=== PATIENT | female | born 1945 | race Caucasian/White ===

== ENCOUNTER 2020-11-23 09:43 | Inpatient (IN) | payer MEDICARE, SELFPAY ==
[2020-11-23] VITALS (30 sets, daily range): BP systolic 78–136; BP diastolic 37–76; PULSE 59–86; RESP 11–414; TEMP 32.5–36.5; O2SAT 96–99; BMI 17.6
--- NOTE | 2020-11-23 | XR_ITS ---
EXAMINATION: XR CHEST CLINICAL INFORMATION: Containing central line placement COMPARISON: Earlier same date TECHNIQUE: Frontal view of the chest was obtained. FINDINGS: Right internal jugular central venous catheter terminates at the superior cavoatrial junction. No discrete consolidation. Trace bilateral pleural effusions unchanged. No pneumothorax. Heart size and pulmonary vascularity within normal limits. No acute or suspicious osseous abnormalities. XR/XR chest 1V IMPRESSION: Right internal jugular central venous catheter terminates at the superior cavoatrial junction. No pneumothorax. Stable trace bilateral pleural effusions.
--- NOTE | 2020-11-23 10:26 | XR_ITS ---
EXAMINATION: XR CHEST CLINICAL INFORMATION: Hypothermia COMPARISON: None TECHNIQUE: Frontal view of the chest was obtained. FINDINGS: No discrete consolidation. Biapical pleural-parenchymal scarring. Nodular opacity at the medial right lung base. No pleural effusion or pneumothorax. Heart size and pulmonary vascularity within normal limits. No acute or suspicious osseous abnormalities. XR/XR chest 1V IMPRESSION: No evidence of acute pneumonitis or parenchymal consolidation. Nonspecific nodular opacity at the medial right lung base.
--- NOTE | 2020-11-23 10:26 | ECG_ITS ---
Test Reason : WEAKNESS Blood Pressure : / mmHG Vent. Rate : 058 BPM Atrial Rate : 058 BPM P-R Int : 174 ms QRS Dur : 086 ms QT Int : 428 ms P-R-T Axes : 068 072 072 degrees QTc Int : 420 ms Sinus bradycardia Otherwise normal ECG No previous ECGs available Referred By: Kathleen Regan Electronically Signed By:MIRANDA GODINEZ
--- NOTE | 2020-11-23 10:30 | CT_ITS ---
EXAMINATION: CT HEAD WITHOUT CONTRAST CT ABDOMEN AND PELVIS WITHOUT CONTRAST CLINICAL INFORMATION: Altered mental status. Septic. Diffuse abdominal pain. COMPARISON: None. TECHNIQUE: Contiguous axial imaging was performed from the skull base to vertex without intravenous administration of contrast. Noncontrast CT imaging of the abdomen and pelvis was performed without the use of intravenous contrast. Coronal and sagittal reformats of both studies created on an independent workstation are reviewed. DLP: 922 mGy-cm. FINDINGS: CT HEAD There is no evidence of acute intracranial hemorrhage or territorial infarction. No abnormal mass effect or midline shift is seen. Santiago to white matter differentiation is well preserved. No extra-axial fluid collections are identified. Patchy subcortical and periventricular white matter low-attenuation changes are present, nonspecific. The ventricles are normal in size. The osseous structures and soft tissues are normal. The mastoid air cells and visualized portions of the paranasal sinuses are well-aerated. CT ABDOMEN/PELVIS IMAGED THORAX: Small bilateral pleural effusions with accompanying atelectasis. Anemia is evident. HEPATOBILIARY: Liver normal in size, contour and morphology. No suspicious lesions. No intra or extrahepatic biliary dilation. Cholecystectomy. PANCREAS: Grossly unremarkable, however assessment is limited by anasarca which obscures the retroperitoneal fat planes and limits assessment for mild inflammation. SPLEEN: Unremarkable. ADRENAL GLANDS: Unremarkable. KIDNEYS, URETERS AND BLADDER: Kidneys normal in size, axis and morphology. No hydronephrosis or urinary calculi. Ureters normal in course and caliber. Bladder grossly unremarkable.. GASTROINTESTINAL TRACT: Limited assessment in the absence of intravenous contrast and diffuse anasarca. Moderate constipation. No evidence of obstruction. Appendix not clearly identified. PELVIC VISCERA: Uterus and adnexa grossly unremarkable. LYMPH NODES: No bulky adenopathy. PERITONEUM/BODY WALL: Anasarca. Small volume ascites. VASCULAR STRUCTURES: Aorta mildly atherosclerotic. No aortic aneurysm. OSSEOUS STRUCTURES: No acute or suspicious osseous abnormalities. CT/CT abdomen pelvis wo con IMPRESSION: CT HEAD: * No acute intracranial pathology. * White matter small vessel ischemic changes. CT ABDOMEN/PELVIS: * Markedly limited exam due to anasarca and lack of intravenous contrast. * No evidence of bowel obstruction. * Moderate to severe constipation. * Small volume ascites. * No source of infection within the abdomen or pelvis.
[2020-11-23 10:54] LABS: Eosinophils Percent Auto 0.5 % (0-4); Imm Gran Abs Auto 0.01 X10*3/uL (0.00-0.03); Imm Gran Pct Auto 0.5 % (0.0-0.4); MANUAL DIFF FLAG SCAN; PLT CLUMP 1; SCAN SMEAR FLAG 1
[2020-11-23 10:56] LABS: Lymphocytes Absolute Auto 1.3 X10*3/uL (1.2-4.9); Lymphocytes Percent Auto 64.9 % (20-40); Mean Corpuscular Hemoglobin 33.5 pg (27.0-33.0); Mean Corpuscular Volume 98.5 fL (80-98); Monocytes Absolute Auto 0.1 X10*3/uL (0.1-1.2); Monocytes Percent Auto 6.4 % (2-11); Neutrophils Absolute Auto 0.6 X10*3/uL (2.0-8.3); Neutrophils Percent Auto 27.7 % (45-73); Red Blood Count 2.03 X10*6/uL (4.20-5.50)
[2020-11-23 11:16] LABS: Hemoglobin 6.8 g/dl (12.0-16.0)
[2020-11-23 11:17] LABS: Lactic Acid 0.5 mmol/L (0.5-2.0); Platelet Count 11 X10*3/uL (160-400)
[2020-11-23 11:18] LABS: SLIDE REVIEW VERIFIED
[2020-11-23] MEDS: 0.9 % Sodium Chloride 500 ML 999 ML IVCONT (11:22)
[2020-11-23 11:27] LABS: Troponin-I High Sensitivity 7.9 ng/L (<3.5-17.0)
[2020-11-23 11:33] LABS: Alanine Aminotransferase 557 U/L (0-31); Alkaline Phosphatase 283 U/L (39-117); Aspartate Amino Transferase 524 U/L (5-31); Bilirubin Direct 0.3 mg/dL (0.0-0.5); Bilirubin Total 0.6 mg/dL (0.0-1.0); Blood Urea Nitrogen 35 mg/dL (9-16); Creatinine Clr Calc Pharmacy 34.8; Estimated Glomerular Filt Rate > 60; Glucose Random 104 mg/dL (60-115); Total Protein 4.7 g/dL (6.5-8.0)
[2020-11-23 11:36] LABS: Glucose, Whole Blood 71 mg/dL (60-115)
[2020-11-23 11:41] LABS: Glucose Urine UA NEG (NEG); Leukocyte Esterase Urine NEG (NEG); Nitrite Urine NEG (NEG); PH 5.5 (5.0-8.0); Specific Gravity - Urine 1.025 (1.005-1.025); Urine Blood TRACE (NEG); Urine Ketones 5 MG/DL (NEG); Urine Protein TRACE MG/DL (NEG-TRACE)
[2020-11-23 11:43] LABS: Anion Gap 11 (12-20); Carbon Dioxide 25 mmol/L (22-29); Chloride 96 mmol/L (96-108); Potassium 4.2 mmol/l (3.3-5.1); Sodium 128 mmol/L (135-145)
[2020-11-23 11:53] LABS: Lipase 2888 U/L (8-78)
[2020-11-23 12:01] LABS: Appearance Urine HAZY; Color Urine YELLOW
[2020-11-23 12:03] LABS: Epith (RTE) Cast 0-2 /LPF; Mucus Urine 2+ /LPF; RBC Urine 0 /HPF (0); WBC Urine 0-2 /HPF (0-4)
--- NOTE | 2020-11-23 12:28 | ED.GENADULT ---
HPI - General Adult General Chief complaint: General Medical Stated complaint: hypoglycemia Time Seen by Provider: 11/23/20 10:02 Source: patient, family and EMS Mode of arrival: EMS Limitations: altered mental status History of Present Illness HPI narrative: Patient is brought to the emergency room for altered mental status. According to the patient's family, this morning patient was unresponsive. It seemed that she was sleeping, they initially left her rest for 5 more minutes, then the son decided to wake her up but could not do so, EMS was called. When EMS arrived, patient's blood sugar was 22, she was given D50. When patient woke up after the D50, patient had significant slurry speech. According to the patient's son, for the last 2-3 weeks, she has had multiple episodes of slurry speech, they believe it is related to her low blood sugar. Patient is known to have anorexia nervosa, the family has been trying to get the patient admitted to an inpatient psychiatric facility where they can treat eating disorders. On arrival to the emergency room, patient states that she has abdominal pain. The son also states that the patient gets a monthly treatment with IV medications for CLL. Of note, the patient was recently discharged from [facility] and sent to a short-term rehab. Related Data Allergies Allergy/AdvReac Type Severity Reaction Status Date / Time No Known Allergies Allergy Verified 11/23/20 10:26 Review of Systems Review of Systems: Constitutional : Patient denies fever chills ENT/Mouth : No Hearing loss, No Ear Pain, No Nasal Congestion, No Sinus Pain, No Hoarseness, No sore throat, No Rhinorrhea, No Swallowing Difficulty Eyes: No Eye Pain, No Swelling, No Redness, No Foreign Body, No Discharge, No Vision Changes Cardiovascular : No Chest Pain, No SOB, No Dyspnea on Exertion, no orthopnea Respiratory : No Cough, No Sputum, No Wheezing, No Smoke Exposure, No Dyspnea Gastrointestinal : No Nausea, No Vomiting, complaining of constipation and diffuse abdominal pain, last bowel movement 4 days ago Genitourinary : patient denies dysuria, no flank pain Musculoskeletal : Patient complaining of left groin pain that gets worse with movement Skin : No Skin Lesions, No rash Neuro : Patient complaining of weakness, no numbness or tingling Psych : No SI/HI/AH/VH, No Social Issues, Heme/Lymph: Complaining of chronic bruising, known to have CLL and low platelets Endocrine : No Polyuria, No Polydipsia, No Temperature Intolerance [facility] Past Medical History Medical History (Updated 11/23/20 @ 16:37 by Kathleen Regan MD) Anorexia CLL (chronic lymphocytic leukemia) Failure to thrive Hypothyroid Social History Social History Advance Directives: No Advance Directives Information Provided: Yes Physical Exam Vital Signs: Vital Signs: Last Vital Signs Temp 94.5 F L 11/23/20 16:05 Pulse 76 11/23/20 16:05 Resp 16 11/23/20 16:05 BP 127/55 L 11/23/20 16:05 Pulse Ox 96 11/23/20 16:05 Body Mass Index 17.6 Appearance: Alert. Oriented X3. No acute distress. Very anxious Eyes: Pupils equal, round and reactive to light. ENT: Pharynx normal. Neck: Normal inspection. Neck supple. No lymph nodes noted. No crepitus CVS: Normal heart rate and rhythm. Pulses normal. Normal S1 and S2 Respiratory: No respiratory distress. Breath sounds normal. No Wheezing. No rales Abdomen: Soft , complaining of diffuse abdominal pain, complaining of left inguinal pain Skin: Skin seems cold to touch, pale Extremities: No lower extremity edema. Chronic venous stasis bilaterally in lower extremities Neuro: Oriented X 3. No motor deficit. No sensory deficit. Moving all extermities. Initially had slurring of speech NIH Stroke Scale Level of Consciousness: Alert Level of Consciousness Questions: Answers both questions correctly Level of Consciousness Commands: Performs both tasks correctly Best Gaze: Normal Visual: No visual loss Facial Palsy: Normal Motor Arm (Right): No drift Motor Arm (Left): No drift Motor Leg (Right): No drift Motor Leg (Left): No drift Limb Ataxia: Absent Sensory: Normal Best Language: No aphasia Dysarthia: Mild to moderate dysarthria Extinction and Inattention: No abnormality Score: 1 Course Course Course Narrative: Patient is known to have CLL, patient's white blood cell count baseline is unknown, all cell lines and decreased. Dr. Mcarthur and I discussed the patient, at this time, 14:00, a possible source of infection has not been identified yet. However, at this time sepsis is suspected. Hematology-Oncology consult pending I also spoke to Dr. Saleh from heme/oncology, her recommendations are to go ahead and give the patient a transfusion of platelets, 1 unit today and 1 unit tomorrow. At this time, we requested to get all of her records from her current hematology/oncology office Procedures Central Line Placement Right IJ: Time Out Performed: Yes Patient Placed on Monitor/Pulse Ox: Yes Prep: mask, gown and gloves Central Line Prep: Chlorhexidine scrub Local Anesthetic: lidocaine 1% Amount of anesthesia used (mL): 5 Ultrasound Used for Placement: Yes Central Line Lumen Inserted: triple Post Procedure: sutured in place, good blood return, all ports aspirated, flushed, capped and sterile dressing applied Post Procedure X-Ray: tip of catheter in good position and no pneumothorax seen Patient Tolerated Procedure: well and no complications Complications: none Medical Decision Making Lab Data Result diagrams: 11/23/20 10:36 11/23/20 10:37 Labs: Lab Results 11/23/20 11/23/20 11/23/20 Range/Units 10:36 10:36 10:36 WBC 2.0 L (4.8-10.8) X10*3/uL RBC 2.03 L (4.20-5.50) X10*6/uL Hgb 6.8 L* (12.0-16.0) g/dl Hct 20.0 L* (37-47) % MCV 98.5 H (80-98) fL MCH 33.5 H (27.0-33.0) pg MCHC 34.0 (31.0-35.0) g/dl RDW 16.0 (11.0-16.0) % Plt Count 11 L* (160-400) X10*3/uL MPV 9.0 L (9.4-12.3) fL Immature Gran % (Auto) 0.5 H (0.0-0.4) % Neut % (Auto) 27.7 L (45-73) % Lymph % (Auto) 64.9 H (20-40) % [place] % (Auto) 6.4 (2-11) % Eos % (Auto) 0.5 (0-4) % Baso % (Auto) 0.0 (0-2) % Lymph # (Auto) 1.3 (1.2-4.9) X10*3/uL [place] # (Auto) 0.1 (0.1-1.2) X10*3/uL Eos # (Auto) 0.0 (0.0-0.4) X10*3/uL Baso # (Auto) 0.0 (0.0-0.2) X10*3/uL Abs Immat Gran (auto) 0.01 (0.00-0.03) X10*3/uL Absolute Neuts (auto) 0.6 L (2.0-8.3) X10*3/uL Absolute Nucleated RBC 0.000 (0.0-0.012) X10*3/uL Nucleated RBC % (auto) 0.0 (0.0-0.2) /100WBC Smear Tech's Comments VERIFIED VBG pH (7.32-7.43) VBG pCO2 mmhg VBG pO2 mmhg VBG HCO3 mmol/L VBG O2 Saturation % VBG Base Excess mmol/L Sodium (135-145) mmol/L Potassium (3.3-5.1) mmol/l Chloride (96-108) mmol/L Carbon Dioxide (22-29) mmol/L Anion Gap (12-20) BUN (9-16) mg/dL Creatinine (0.5-1.4) mg/dL Estim Creat Clear Calc Estimated GFR POC Glucose (60-115) mg/dL Random Glucose (60-115) mg/dL Lactic Acid 0.5 (0.5-2.0) mmol/L Calcium (8.4-10.2) mg/dL Phosphorus (2.7-4.5) mg/dL Magnesium (1.6-2.6) mg/dL Total Bilirubin (0.0-1.0) mg/dL Direct Bilirubin (0.0-0.5) mg/dL AST (5-31) U/L ALT (0-31) U/L Alkaline Phosphatase (39-117) U/L Troponin I High Sens 7.9 (<3.5-17.0) ng/L Total Protein (6.5-8.0) g/dL Albumin (3.5-5.0) g/dL Triglycerides mg/dL Lipase (8-78) U/L TSH (0.32-4.0) mIU/mL Urine Color Urine Appearance Urine pH (5.0-8.0) Ur Specific [place] (1.005-1.025) Urine Protein (NEG-TRACE) MG/DL Urine Glucose (UA) (NEG) MG/DL Urine Ketones (NEG) MG/DL Urine Blood (NEG) Urine Nitrite (NEG) Ur Leukocyte Esterase (NEG) Urine RBC (0) /HPF Urine WBC (0-4) /HPF Ur Squamous Epith Cells /LPF Urine Bacteria /LPF Epithelial Casts /LPF Hyaline Casts /LPF Granular Casts /LPF Urine Mucus /LPF Coronavirus (PCR) (Negative) Influenza Type A (PCR) (Negative) Influenza Type B (PCR) (Negative) RSV RNA Qual (PCR) (Negative) Blood Type Antibody Screen Crossmatch 11/23/20 11/23/20 11/23/20 Range/Units 10:36 10:37 11:24 WBC (4.8-10.8) X10*3/uL RBC (4.20-5.50) X10*6/uL Hgb (12.0-16.0) g/dl Hct (37-47) % MCV (80-98) fL MCH (27.0-33.0) pg MCHC (31.0-35.0) g/dl RDW (11.0-16.0) % Plt Count (160-400) X10*3/uL MPV (9.4-12.3) fL Immature Gran % (Auto) (0.0-0.4) % Neut % (Auto) (45-73) % Lymph % (Auto) (20-40) % [place] % (Auto) (2-11) % Eos % (Auto) (0-4) % Baso % (Auto) (0-2) % Lymph # (Auto) (1.2-4.9) X10*3/uL [place] # (Auto) (0.1-1.2) X10*3/uL Eos # (Auto) (0.0-0.4) X10*3/uL Baso # (Auto) (0.0-0.2) X10*3/uL Abs Immat Gran (auto) (0.00-0.03) X10*3/uL Absolute Neuts (auto) (2.0-8.3) X10*3/uL Absolute Nucleated RBC (0.0-0.012) X10*3/uL Nucleated RBC % (auto) (0.0-0.2) /100WBC Smear Tech's Comments VBG pH (7.32-7.43) VBG pCO2 mmhg VBG pO2 mmhg VBG HCO3 mmol/L VBG O2 Saturation % VBG Base Excess mmol/L Sodium 128 L (135-145) mmol/L Potassium 4.2 (3.3-5.1) mmol/l Chloride 96 (96-108) mmol/L Carbon Dioxide 25 (22-29) mmol/L Anion Gap 11 L (12-20) BUN 35 H (9-16) mg/dL Creatinine 0.90 (0.5-1.4) mg/dL Estim Creat Clear Calc 34.8 Estimated GFR > 60 POC Glucose 71 (60-115) mg/dL Random Glucose 104 (60-115) mg/dL Lactic Acid (0.5-2.0) mmol/L Calcium 8.0 L (8.4-10.2) mg/dL Phosphorus 3.7 (2.7-4.5) mg/dL Magnesium 2.0 (1.6-2.6) mg/dL Total Bilirubin 0.6 (0.0-1.0) mg/dL Direct Bilirubin 0.3 (0.0-0.5) mg/dL AST 524 H (5-31) U/L ALT 557 H (0-31) U/L Alkaline Phosphatase 283 H (39-117) U/L Troponin I High Sens (<3.5-17.0) ng/L Total Protein 4.7 L (6.5-8.0) g/dL Albumin 3.0 L (3.5-5.0) g/dL Triglycerides 25 mg/dL Lipase 2888 H (8-78) U/L TSH 7.39 H (0.32-4.0) mIU/mL Urine Color Urine Appearance Urine pH (5.0-8.0) Ur Specific [place] (1.005-1.025) Urine Protein (NEG-TRACE) MG/DL Urine Glucose (UA) (NEG) MG/DL Urine Ketones (NEG) MG/DL Urine Blood (NEG) Urine Nitrite (NEG) Ur Leukocyte Esterase (NEG) Urine RBC (0) /HPF Urine WBC (0-4) /HPF Ur Squamous Epith Cells /LPF Urine Bacteria /LPF Epithelial Casts /LPF Hyaline Casts /LPF Granular Casts /LPF Urine Mucus /LPF Coronavirus (PCR) (Negative) Influenza Type A (PCR) (Negative) Influenza Type B (PCR) (Negative) RSV RNA Qual (PCR) (Negative) Blood Type Antibody Screen Crossmatch 11/23/20 11/23/20 11/23/20 Range/Units 11:29 12:52 14:09 WBC (4.8-10.8) X10*3/uL RBC (4.20-5.50) X10*6/uL Hgb (12.0-16.0) g/dl Hct (37-47) % MCV (80-98) fL MCH (27.0-33.0) pg MCHC (31.0-35.0) g/dl RDW (11.0-16.0) % Plt Count (160-400) X10*3/uL MPV (9.4-12.3) fL Immature Gran % (Auto) (0.0-0.4) % Neut % (Auto) (45-73) % Lymph % (Auto) (20-40) % [place] % (Auto) (2-11) % Eos % (Auto) (0-4) % Baso % (Auto) (0-2) % Lymph # (Auto) (1.2-4.9) X10*3/uL [place] # (Auto) (0.1-1.2) X10*3/uL Eos # (Auto) (0.0-0.4) X10*3/uL Baso # (Auto) (0.0-0.2) X10*3/uL Abs Immat Gran (auto) (0.00-0.03) X10*3/uL Absolute Neuts (auto) (2.0-8.3) X10*3/uL Absolute Nucleated RBC (0.0-0.012) X10*3/uL Nucleated RBC % (auto) (0.0-0.2) /100WBC Smear Tech's Comments VBG pH (7.32-7.43) VBG pCO2 mmhg VBG pO2 mmhg VBG HCO3 mmol/L VBG O2 Saturation % VBG Base Excess mmol/L Sodium (135-145) mmol/L Potassium (3.3-5.1) mmol/l Chloride (96-108) mmol/L Carbon Dioxide (22-29) mmol/L Anion Gap (12-20) BUN (9-16) mg/dL Creatinine (0.5-1.4) mg/dL Estim Creat Clear Calc Estimated GFR POC Glucose (60-115) mg/dL Random Glucose (60-115) mg/dL Lactic Acid (0.5-2.0) mmol/L Calcium (8.4-10.2) mg/dL Phosphorus (2.7-4.5) mg/dL Magnesium (1.6-2.6) mg/dL Total Bilirubin (0.0-1.0) mg/dL Direct Bilirubin (0.0-0.5) mg/dL AST (5-31) U/L ALT (0-31) U/L Alkaline Phosphatase (39-117) U/L Troponin I High Sens (<3.5-17.0) ng/L Total Protein (6.5-8.0) g/dL Albumin (3.5-5.0) g/dL Triglycerides mg/dL Lipase (8-78) U/L TSH (0.32-4.0) mIU/mL Urine Color YELLOW Urine Appearance HAZY Urine pH 5.5 (5.0-8.0) Ur Specific [place] 1.025 (1.005-1.025) Urine Protein TRACE (NEG-TRACE) MG/DL Urine Glucose (UA) NEG (NEG) MG/DL Urine Ketones 5 (NEG) MG/DL Urine Blood TRACE (NEG) Urine Nitrite NEG (NEG) Ur Leukocyte Esterase NEG (NEG) Urine RBC 0 (0) /HPF Urine WBC 0-2 (0-4) /HPF Ur Squamous Epith Cells NONE /LPF Urine Bacteria NONE /LPF Epithelial Casts 0-2 /LPF Hyaline Casts 5-9 /LPF Granular Casts 1-4 /LPF Urine Mucus 2+ /LPF Coronavirus (PCR) NEGATIVE (Negative) Influenza Type A (PCR) NEGATIVE (Negative) Influenza Type B (PCR) NEGATIVE (Negative) RSV RNA Qual (PCR) NEGATIVE (Negative) Blood Type A Negative Antibody Screen NEGATIVE Crossmatch See Detail 11/23/20 Range/Units 14:09 WBC (4.8-10.8) X10*3/uL RBC (4.20-5.50) X10*6/uL Hgb (12.0-16.0) g/dl Hct (37-47) % MCV (80-98) fL MCH (27.0-33.0) pg MCHC (31.0-35.0) g/dl RDW (11.0-16.0) % Plt Count (160-400) X10*3/uL MPV (9.4-12.3) fL Immature Gran % (Auto) (0.0-0.4) % Neut % (Auto) (45-73) % Lymph % (Auto) (20-40) % [place] % (Auto) (2-11) % Eos % (Auto) (0-4) % Baso % (Auto) (0-2) % Lymph # (Auto) (1.2-4.9) X10*3/uL [place] # (Auto) (0.1-1.2) X10*3/uL Eos # (Auto) (0.0-0.4) X10*3/uL Baso # (Auto) (0.0-0.2) X10*3/uL Abs Immat Gran (auto) (0.00-0.03) X10*3/uL Absolute Neuts (auto) (2.0-8.3) X10*3/uL Absolute Nucleated RBC (0.0-0.012) X10*3/uL Nucleated RBC % (auto) (0.0-0.2) /100WBC Smear Tech's Comments VBG pH 7.35 (7.32-7.43) VBG pCO2 47 mmhg VBG pO2 57 mmhg VBG HCO3 25 mmol/L VBG O2 Saturation 90.2 % VBG Base Excess -0.6 mmol/L Sodium (135-145) mmol/L Potassium (3.3-5.1) mmol/l Chloride (96-108) mmol/L Carbon Dioxide (22-29) mmol/L Anion Gap (12-20) BUN (9-16) mg/dL Creatinine (0.5-1.4) mg/dL Estim Creat Clear Calc Estimated GFR POC Glucose (60-115) mg/dL Random Glucose (60-115) mg/dL Lactic Acid (0.5-2.0) mmol/L Calcium (8.4-10.2) mg/dL Phosphorus (2.7-4.5) mg/dL Magnesium (1.6-2.6) mg/dL Total Bilirubin (0.0-1.0) mg/dL Direct Bilirubin (0.0-0.5) mg/dL AST (5-31) U/L ALT (0-31) U/L Alkaline Phosphatase (39-117) U/L Troponin I High Sens (<3.5-17.0) ng/L Total Protein (6.5-8.0) g/dL Albumin (3.5-5.0) g/dL Triglycerides mg/dL Lipase (8-78) U/L TSH (0.32-4.0) mIU/mL Urine Color Urine Appearance Urine pH (5.0-8.0) Ur Specific [place] (1.005-1.025) Urine Protein (NEG-TRACE) MG/DL Urine Glucose (UA) (NEG) MG/DL Urine Ketones (NEG) MG/DL Urine Blood (NEG) Urine Nitrite (NEG) Ur Leukocyte Esterase (NEG) Urine RBC (0) /HPF Urine WBC (0-4) /HPF Ur Squamous Epith Cells /LPF Urine Bacteria /LPF Epithelial Casts /LPF Hyaline Casts /LPF Granular Casts /LPF Urine Mucus /LPF Coronavirus (PCR) (Negative) Influenza Type A (PCR) (Negative) Influenza Type B (PCR) (Negative) RSV RNA Qual (PCR) (Negative) Blood Type Antibody Screen Crossmatch ECG Data Attestation: I personally reviewed and interpreted this ECG as follows: (Sinus bradycardia, heart rate 58, QTC 420, Nose segment depressions or elevations) Critical Care Time Critical Care Time Total Critical Care Time: 120 Discharge Plan Discharge Clinical Impression: Weakness, Acute hyponatremia, Adult failure to thrive, Chronic lymphocytic leukemia Anemia Qualifiers: Anemia type: unspecified type Qualified Code(s): D64.9 - Anemia, unspecified Acute pancreatitis Qualifiers: Pancreatitis type: unspecified pancreatitis type Acute pancreatitis complication: unspecified Qualified Code(s): K85.90 - Acute pancreatitis without necrosis or infection, unspecified Patient Disposition: Admitted As Inpatient
[2020-11-23] MEDS: Dextrose 5 % and 0.9 % NaCl 1,000 ML 125 ML IVCONT (12:29)
--- NOTE | 2020-11-23 12:30 | PC.NURSE ---
d5ns started at 125ml/h ALERT, RECTAL TEMP 92.5 AND SLOWLY CLIMBING, SB ON MONITOR
--- NOTE | 2020-11-23 12:33 | US_ITS ---
EXAMINATION: US ABDOMEN LIMITED CLINICAL INFORMATION: Elevated LFTs. COMPARISON: CT scan of same day TECHNIQUE: Real-time imaging of the right upper quadrant abdominal viscera. Limited imaging FINDINGS: PANCREAS: Somewhat prominent without focal abnormality. Correlate with operative assessment. No pancreatic duct dilatation grossly. LIVER: Heterogeneous The liver is normal in size. Small amount of perihepatic free fluid. No focal hepatic lesion. There is no intrahepatic biliary duct dilatation seen. GALLBLADDER: Absent consistent surgical history. COMMON BILE DUCT: Normal in caliber measuring 0.6 cm in diameter. RIGHT KIDNEY: Normal. No hydronephrosis. No renal calculi or focal parenchymal lesions. The kidney measures 9.6 cm in maximum dimension. FREE FLUID: Small amount of free fluid tracks into Morison's pouch as well. US/US abdomen limited IMPRESSION: Limited imaging. No gross abnormalities above. Nonspecific intrinsic liver disease suspected. No biliary dilatation.
[2020-11-23] MEDS: 0.9 % Sodium Chloride 1,000 ML 999 ML IVCONT (12:58)
[2020-11-23] MEDS: ondansetron HCL 4 MG/2 ML VIAL IVPUSH ×2 (13:02→13:27)
[2020-11-23] MEDS: Prochlorperazine Edisylate 10 MG/2 ML VIAL IVPUSH (13:10)
--- NOTE | 2020-11-23 13:14 | PC.NURSE ---
Dr. chaves at bedside to place r jugular central line. Pt agreeable
--- NOTE | 2020-11-23 14:01 | PC.NURSE ---
building mover at bedside, cental line placed by , xray done, levophed infusing and increased to .15mcg/kg/min
[2020-11-23 14:18] LABS: Base Excess VBG -0.6 mmol/L; HCO3 VBG 25 mmol/L; Oxygen Saturation VBG 90.2 %; PCO2 VBG 47 mmhg; PO2 VBG 57 mmhg; pH VBG 7.35 (7.32-7.43)
[2020-11-23] MEDS: cefEPime HCl 2 GM in 0.9 % Sodium Chloride 50 ML IV (14:24)
[2020-11-23 15:20] LABS: Phosphorus 3.7 mg/dL (2.7-4.5); Triglycerides 25 mg/dL
--- NOTE | 2020-11-23 15:26 | P.HPCC_ITS ---
History of Present Illness Date of Service: 11/23/20 Chief Complaint: Altered mental status and weakness 75-year-old female somewhat cachectic appearing with lethargy but arousable and appropriate presents with profound hypothermia and hypotension receive full fluid resuscitation despite lactic acid that was normal being treated as a septic individual because of [place] [address] h emoglobin 6.8 and reduced absolute neutrophil count to 600 with background history of CLL for 10 years but on no chemotherapy and has had a prolonged background of anorexia weight loss constipation and a recent bout with cellulitis currently has markedly elevated lipase of 2800 and transaminases abraham vated in the 500s whereby 1 month ago those numbers were normal and she is status post appendectomy and cholecystectomy Bedside echo shows normal LV and RV function with no primary valve or pericardia l disease just mild relative biatrial enlargement in sinus rhythm with no acute ST-T changes and normal QRS and QT intervals Review of Systems Review of Systems: Yes Unobtainable due to mental status [facility] Past Medical History Medical History (Updated 11/23/20 @ 15:50 by Bossman Mcarthur MD) Anorexia CLL (chronic lymphocytic leukemia) Failure to thrive Hypothyroid Social History Social History Advance Directives: No Advance Directives Information Provided: Yes Meds Allergies Allergy/AdvReac Type Severity Reaction Status Date / Time No Known Allergies Allergy Verified 11/23/20 10:26 Physical Exam Vital Signs: Vital Signs: Last Vital Signs Temp 96 F L 11/23/20 14:59 Pulse 78 11/23/20 15:23 Resp 16 11/23/20 15:23 BP 111/46 L 11/23/20 15:23 Pulse Ox 96 11/23/20 15:23 Body Mass Index 17.6 Lethargic but awake and arousable and oriented Neurologic is nonfocal Skin with stasis dermatitis but no cellulitis Abdomen nondistended good bowel sounds nontender no organomegaly Chest and between x-ray and exam with diminished breath sounds indicating COPD but no infiltrate Good bilateral carotid upstrokes no bruits no neck vein distension but IVC is distended with lack of inspiratory response after 2.5 L of fluid resuscitation Results Labs CBC and Chem 7: 11/23/20 10:36 11/23/20 10:37 Labs: Laboratory Results - last 24 hr 11/23/20 11/23/20 11/23/20 10:36 10:36 10:36 MCV 98.5 H MCH 33.5 H MCHC 34.0 RDW 16.0 Plt Count 11 L* MPV 9.0 L Immature Gran % (Auto) 0.5 H Neut % (Auto) 27.7 L Lymph % (Auto) 64.9 H [place] % (Auto) 6.4 Eos % (Auto) 0.5 Baso % (Auto) 0.0 Lymph # (Auto) 1.3 [place] # (Auto) 0.1 Eos # (Auto) 0.0 Baso # (Auto) 0.0 Abs Immat Gran (auto) 0.01 Absolute Neuts (auto) 0.6 L Absolute Nucleated RBC 0.000 Nucleated RBC % (auto) 0.0 Smear Tech's Comments VERIFIED VBG pH VBG pCO2 VBG pO2 VBG HCO3 VBG O2 Saturation VBG Base Excess Anion Gap Estim Creat Clear Calc Estimated GFR POC Glucose Random Glucose Lactic Acid 0.5 Calcium Phosphorus Magnesium Total Bilirubin Direct Bilirubin AST ALT Alkaline Phosphatase Troponin I High Sens 7.9 Total Protein Albumin Triglycerides Lipase Urine Color Urine Appearance Urine pH Ur Specific [place] Urine Protein Urine Glucose (UA) Urine Ketones Urine Blood Urine Nitrite Ur Leukocyte Esterase Urine RBC Urine WBC Ur Squamous Epith Cells Urine Bacteria Epithelial Casts Hyaline Casts Granular Casts Urine Mucus Blood Type Antibody Screen Crossmatch 11/23/20 11/23/20 11/23/20 10:36 10:37 11:24 MCV MCH MCHC RDW Plt Count MPV Immature Gran % (Auto) Neut % (Auto) Lymph % (Auto) [place] % (Auto) Eos % (Auto) Baso % (Auto) Lymph # (Auto) [place] # (Auto) Eos # (Auto) Baso # (Auto) Abs Immat Gran (auto) Absolute Neuts (auto) Absolute Nucleated RBC Nucleated RBC % (auto) Smear Tech's Comments VBG pH VBG pCO2 VBG pO2 VBG HCO3 VBG O2 Saturation VBG Base Excess Anion Gap 11 L Estim Creat Clear Calc 34.8 Estimated GFR > 60 POC Glucose 71 Random Glucose 104 Lactic Acid Calcium 8.0 L Phosphorus 3.7 Magnesium 2.0 Total Bilirubin 0.6 Direct Bilirubin 0.3 AST 524 H ALT 557 H Alkaline Phosphatase 283 H Troponin I High Sens Total Protein 4.7 L Albumin 3.0 L Triglycerides 25 Lipase 2888 H Urine Color Urine Appearance Urine pH Ur Specific [place] Urine Protein Urine Glucose (UA) Urine Ketones Urine Blood Urine Nitrite Ur Leukocyte Esterase Urine RBC Urine WBC Ur Squamous Epith Cells Urine Bacteria Epithelial Casts Hyaline Casts Granular Casts Urine Mucus Blood Type Antibody Screen Crossmatch 11/23/20 11/23/20 11/23/20 11:29 12:52 14:09 MCV MCH MCHC RDW Plt Count MPV Immature Gran % (Auto) Neut % (Auto) Lymph % (Auto) [place] % (Auto) Eos % (Auto) Baso % (Auto) Lymph # (Auto) [place] # (Auto) Eos # (Auto) Baso # (Auto) Abs Immat Gran (auto) Absolute Neuts (auto) Absolute Nucleated RBC Nucleated RBC % (auto) Smear Tech's Comments VBG pH 7.35 VBG pCO2 47 VBG pO2 57 VBG HCO3 25 VBG O2 Saturation 90.2 VBG Base Excess -0.6 Anion Gap Estim Creat Clear Calc Estimated GFR POC Glucose Random Glucose Lactic Acid Calcium Phosphorus Magnesium Total Bilirubin Direct Bilirubin AST ALT Alkaline Phosphatase Troponin I High Sens Total Protein Albumin Triglycerides Lipase Urine Color YELLOW Urine Appearance HAZY Urine pH 5.5 Ur Specific [place] 1.025 Urine Protein TRACE Urine Glucose (UA) NEG Urine Ketones 5 Urine Blood TRACE Urine Nitrite NEG Ur Leukocyte Esterase NEG Urine RBC 0 Urine WBC 0-2 Ur Squamous Epith Cells NONE Urine Bacteria NONE Epithelial Casts 0-2 Hyaline Casts 5-9 Granular Casts 1-4 Urine Mucus 2+ Blood Type A Negative Antibody Screen NEGATIVE Crossmatch See Detail Imaging Radiologist's Impressions: Impressions Chest X-Ray 11/23/20 00:00 IMPRESSION: Right internal jugular central venous catheter terminates at the superior cavoatrial junction. No pneumothorax. Stable trace bilateral pleural effusions. Chest X-Ray 11/23/20 10:26 IMPRESSION: No evidence of acute pneumonitis or parenchymal consolidation. Nonspecific nodular opacity at the medial right lung base. Head CT 11/23/20 10:27 IMPRESSION: CT HEAD: * No acute intracranial pathology. * White matter small vessel ischemic changes. CT ABDOMEN/PELVIS: * Markedly limited exam due to anasarca and lack of intravenous contrast. * No evidence of bowel obstruction. * Moderate to severe constipation. * Small volume ascites. * No source of infection within the abdomen or pelvis. Abdomen/Pelvis CT 11/23/20 10:30 IMPRESSION: CT HEAD: * No acute intracranial pathology. * White matter small vessel ischemic changes. CT ABDOMEN/PELVIS: * Markedly limited exam due to anasarca and lack of intravenous contrast. * No evidence of bowel obstruction. * Moderate to severe constipation. * Small volume ascites. * No source of infection within the abdomen or pelvis. Abdomen Ultrasound 11/23/20 12:33 IMPRESSION: Limited imaging. No gross abnormalities above. Nonspecific intrinsic liver disease suspected. No biliary dilatation. Assessment and Plan (1) Thrombocytopenia due to hypersplenism: Status: Acute (2) Weakness: Status: Acute (3) Acute hyponatremia: Status: Acute (4) Anemia: Qualifiers: Anemia type: unspecified type Qualified Code(s): D64.9 - Anemia, unspecified Status: Acute (5) Acute pancreatitis: Qualifiers: Acute pancreatitis complication: unspecified Pancreatitis type: unspecified pancreatitis type Qualified Code(s): K85.90 - Acute pancreatitis without necrosis or infection, unspecified Status: Acute (6) Adult failure to thrive: Status: Acute (7) Chronic leukopenia: Status: Acute (8) Neutropenia: Status: Acute (9) Hypothermia: Status: Acute (10) Hypotension: Status: Acute The plan is to extensively culture the patient all imaging has been done with no apparent source of infection but would cover due to hypothermia and neutropenia and 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
[2020-11-23 15:30] LABS: Influenza A PCR NEGATIVE (Negative); Influenza B PCR NEGATIVE (Negative); Resp Syncy Virus RNA Qual PCR NEGATIVE (Negative); SARS COV2 PCR INHOUSE NEGATIVE (Negative)
--- NOTE | 2020-11-23 16:06 | PC.NURSE ---
Pt cleansed of very large and soft brown bm. pt aknowledging RN presence but unable to answer questions, state name. Pt unable to follow commands. Moans with movement. scant doyle blood noted on labia after removal of previous brewer. Brewer with indwelling temp inserted w/o diff. pt has pitting edema in thighs and lower legs. hands are swollen. placed right side lying to get off of bony coccyx. Area is blanchable pink. No breakdown. No family at bedside at this time. Awaiting transfer to ICU.
[2020-11-23 16:10] LABS: Glucose, Whole Blood 88 mg/dL (60-115)
[2020-11-23 16:28] LABS: TSH reflex Free T4 7.39 mIU/mL (0.32-4.0)
--- NOTE | 2020-11-23 16:30 | PC.NURSE ---
Rn to rn joelle cook on ICU.
[2020-11-23] MEDS: 0.9 % Sodium Chloride 1,000 ML 60 ML IVCONT (17:21)
[2020-11-23 17:23] LABS: Immature Retic Fraction 5.6 % (3.0-15.9); Retic HGB Equivalent 33.5 pg (30.0-35.0); Reticulocyte Percent 2.2 % (0.5-1.8); Reticulocytes Absolute 0.054 X10*6/uL (0.026-0.095)
[2020-11-23] MEDS: 0.9 % Sodium Chloride Flush 3 ML SYRINGE IVFLUSH (17:23)
[2020-11-23] MEDS: vancomycin HCL 1,000 MG in 0.9 % Sodium Chloride 250 ML 270 MG IV (17:38)
[2020-11-23 17:54] LABS: Lactate Dehydrogenase 260 U/L (122-220)
[2020-11-23] MEDS: Levothyroxine Sodium 100 MCG VIAL 37.5 MCG IVPUSH (17:58)
[2020-11-23] MEDS: Levothyroxine Sodium 100 MCG VIAL 12.5 MCG IVPUSH (17:58)
[2020-11-23 18:06] LABS: Glucose, Whole Blood 87 mg/dL (60-115)
[2020-11-23 22:07] LABS: Imm Gran Abs Auto 0.01 X10*3/uL (0.00-0.03); Imm Gran Pct Auto 0.2 % (0.0-0.4); PLT CLUMP 1; SCAN SMEAR FLAG 1
[2020-11-23 22:08] LABS: Basophils Percent Auto 0.2 % (0-2); Hematocrit 22.6 % (37-47); Hemoglobin 7.7 g/dl (12.0-16.0); Lymphocytes Absolute Auto 2.7 X10*3/uL (1.2-4.9); Lymphocytes Percent Auto 55.7 % (20-40); Mean Corpuscular HGB Conc 34.1 g/dl (31.0-35.0); Mean Corpuscular Hemoglobin 32.9 pg (27.0-33.0); Mean Corpuscular Volume 96.6 fL (80-98); Mean Platelet Volume 9.3 fL (9.4-12.3); Monocytes Absolute Auto 0.1 X10*3/uL (0.1-1.2); Monocytes Percent Auto 2.7 % (2-11); Neutrophils Percent Auto 41.2 % (45-73); Red Blood Count 2.34 X10*6/uL (4.20-5.50); Red Cell Distribution Width 18.1 % (11.0-16.0); White Blood Count 4.9 X10*3/uL (4.8-10.8)
[2020-11-23 22:14] LABS: Platelet Count 40 X10*3/uL (160-400)
[2020-11-23 22:16] LABS: MANUAL DIFF FLAG SCAN
[2020-11-23 22:31] LABS: SLIDE REVIEW VERIFIED
[2020-11-24] VITALS (27 sets, daily range): BP systolic 96–144; BP diastolic 44–85; PULSE 62–98; RESP 9–18; TEMP 35.5–37.6; O2SAT 92–99; BMI 21.4
[2020-11-24 00:10] LABS: Glucose, Whole Blood 127 mg/dL (60-115)
[2020-11-24] MEDS: 0.9 % Sodium Chloride Flush 3 ML SYRINGE IVFLUSH ×4 (00:45→22:55)
[2020-11-24 03:54] LABS: Glucose, Whole Blood 108 mg/dL (60-115)
[2020-11-24 06:11] LABS: Imm Gran Abs Auto 0.02 X10*3/uL (0.00-0.03); Imm Gran Pct Auto 0.3 % (0.0-0.4); MANUAL DIFF FLAG SCAN; PLT CLUMP 1; SCAN SMEAR FLAG 1
[2020-11-24 06:13] LABS: Lymphocytes Absolute Auto 4.1 X10*3/uL (1.2-4.9); Mean Corpuscular HGB Conc 33.3 g/dl (31.0-35.0); Mean Corpuscular Hemoglobin 32.1 pg (27.0-33.0); Mean Corpuscular Volume 96.4 fL (80-98); Mean Platelet Volume 11.2 fL (9.4-12.3); Monocytes Absolute Auto 0.3 X10*3/uL (0.1-1.2); Monocytes Percent Auto 3.7 % (2-11); Neutrophils Absolute Auto 2.7 X10*3/uL (2.0-8.3); Red Blood Count 2.49 X10*6/uL (4.20-5.50); Red Cell Distribution Width 18.1 % (11.0-16.0); White Blood Count 7.1 X10*3/uL (4.8-10.8)
[2020-11-24 06:14] LABS: PCO2 VBG 51 mmhg; PO2 VBG 46 mmhg; pH VBG 7.35 (7.32-7.43)
[2020-11-24 06:15] LABS: Base Excess VBG 1.4 mmol/L; HCO3 VBG 28 mmol/L; Oxygen Saturation VBG 83.3 %
[2020-11-24 06:25] LABS: Platelet Count 43 X10*3/uL (160-400)
[2020-11-24 06:27] LABS: Anion Gap 9 (12-20); Blood Urea Nitrogen 26 mg/dL (9-16); Calcium 7.9 mg/dL (8.4-10.2); Carbon Dioxide 26 mmol/L (22-29); Chloride 104 mmol/L (96-108); Creatinine Clr Calc Pharmacy 38.6; Estimated Glomerular Filt Rate > 60; Glucose Random 101 mg/dL (60-115); Lipase 703 U/L (8-78); Magnesium 1.9 mg/dL (1.6-2.6); Phosphorus 3.4 mg/dL (2.7-4.5); Potassium 4.7 mmol/l (3.3-5.1); Sodium 134 mmol/L (135-145)
[2020-11-24] MEDS: 0.9 % Sodium Chloride 1,000 ML 60 ML IVCONT ×2 (08:19→22:55)
[2020-11-24 08:29] LABS: Glucose, Whole Blood 110 mg/dL (60-115)
--- NOTE | 2020-11-24 10:07 | MHC.CM.PN ---
CM spoke with son Porfirio by phone [phone] who reports patient used to be independent, driving self and very active in the community. Patient has a house on [address] and was living alone and independent. Patient [place] and then went to rehab from there x 1 month. Porfirio went to pick his mom up from rehab and brought her back home with him. He reports patient was amb with a walker and doing well. Porfirio called 911 3 days later when mom was not arousable. Porfirio states she does have a HCP, copy requested. Discussed discharge plan, plan is unsure at this time and family wants to look into all options prior to making a decision. Instructed Porfirio we will see how patient is doing the address discharge plan. Porfirio verbalized understanding. [facility] will continue to follow patient for discharge needs.
[2020-11-24 10:31] LABS: Alanine Aminotransferase 397 U/L (0-31); Albumin Level 2.7 g/dL (3.5-5.0); Alkaline Phosphatase 259 U/L (39-117); Aspartate Amino Transferase 353 U/L (5-31); Bilirubin Direct 0.3 mg/dL (0.0-0.5); Total Protein 4.9 g/dL (6.5-8.0)
[2020-11-24] MEDS: Doxycycline Hyclate 100 MG in 0.9 % Sodium Chloride 250 ML 166.67 MG IV (10:48)
[2020-11-24 13:12] LABS: Glucose, Whole Blood 101 mg/dL (60-115)
--- NOTE | 2020-11-24 13:57 | PC.NURSE ---
Pt lethargic, spontaneously arouses, oriented to person, time, not place, thinks at [facility], severely weak. Right facial droop noted with smile and MD aware, son Rolando asked and states unknown if this is her baseline. Sinus rhythm 70s occasional PVC, STACH 120 when supine breifly. SBP 99-127/ DBP 46-62, titrated from levophed 0.06mcg/kg/min to 0.02mcg/kg/min, BP currently 129/54. 4+ edema hands bilat. Afebrile, off FRANCISCO J hugger, labs ordered and collected, pending. H/H 07/16, PLT 43, MD states no need for more PLT transfusion at this time. AST/ALT/ALK PHOS improving, blood cultures negative. POC today 110,101. TPN running at 42ml/hr. SaO2 97% on RA, lungs dim, oropharyngeal suctioning for thick white secretions, RR 13br/min. Son Rolando called and updated. Bruising to bilat forearms and right eye, redness to coccyx, frequent repositioning and barrier cream applied. Bed locked and in lowest position, call stahl in reach, will continue to monitor.
--- NOTE | 2020-11-24 14:57 | PM.CCPN ---
Subjective Subjective Date of Service: 11/24/20 Interval History: 75-year-old female with 10 year history of chronic lymphocytic leukemia therefore advanced presents with altered mental status severe and worsening pancytopenia compared to 1 month earlier and markedly hypothermic and hypotensive with low absolute neutrophil count of 600 and probable relative hypogammaglobulinemia so she was covered with extensive broad-spectrum antibiotics and given the elevated liver function test also by comparison and her living location on [address] [facility] with worsening leukopenia and thrombocytopenia I sent off workup for tick-borne disease and in addition covering with doxycycline Blood pressure much better supported on low-dose Levophed with CVP of 4 and therefore volume repleted receiving TPN with volume now being increased to 60 cc/hour Although lethargic she now awakens and is conversational and appropriate and post transfusion hemoglobin improving to 8.3 and platelets 240 1000 and no further transfusion necessary at this point Physical Exam Vital Signs: Vital Signs: Last Vital Signs Temp 97.2 F 11/24/20 13:00 Pulse 66 11/24/20 14:00 Resp 14 11/24/20 14:00 BP 129/54 L 11/24/20 14:00 Pulse Ox 97 11/24/20 14:00 Body Mass Index 21.4 Const: Other: Lethargic but easily arousable and appropriate and oriented x3 Cardiac exam with CVP of 4 and normal S1 and normal S2 with no gallops and good bilateral carotid upstrokes Lungs without adventitious sounds bilaterally Abdomen is benign with no organomegaly she has good bowel sounds and soft His skin is intact with no rash no livedo no acrocyanosis no cellulitis Objective Data Labs CBC & Chem 7: 11/24/20 05:15 11/24/20 05:15 Labs: Laboratory Results - last 24 hr 11/23/20 11/23/20 11/23/20 10:36 12:52 14:09 WBC RBC Hgb Hct MCV MCH MCHC RDW Plt Count MPV Immature Gran % (Auto) Neut % (Auto) Lymph % (Auto) [place] % (Auto) Eos % (Auto) Baso % (Auto) Lymph # (Auto) [place] # (Auto) Eos # (Auto) Baso # (Auto) Abs Immat Gran (auto) Absolute Neuts (auto) Absolute Nucleated RBC Nucleated RBC % (auto) Smear Tech's Comments Absolute Retic Percent Retic Immature Retic Fraction Retic Hgb Equivalent VBG pH VBG pCO2 VBG pO2 VBG HCO3 VBG O2 Saturation VBG Base Excess Sodium Potassium Chloride Carbon Dioxide Anion Gap BUN Creatinine Estim Creat Clear Calc Estimated GFR POC Glucose Random Glucose Calcium Phosphorus 3.7 Magnesium 2.0 Total Bilirubin Direct Bilirubin AST ALT Alkaline Phosphatase Lactate Dehydrogenase Total Protein Albumin Triglycerides 25 Lipase TSH 7.39 H Free T4 1.20 Coronavirus (PCR) NEGATIVE Influenza Type A (PCR) NEGATIVE Influenza Type B (PCR) NEGATIVE RSV RNA Qual (PCR) NEGATIVE Blood Type A Negative Antibody Screen NEGATIVE Crossmatch See Detail 11/23/20 11/23/20 11/23/20 15:44 17:14 17:14 WBC RBC Hgb Hct MCV MCH MCHC RDW Plt Count MPV Immature Gran % (Auto) Neut % (Auto) Lymph % (Auto) [place] % (Auto) Eos % (Auto) Baso % (Auto) Lymph # (Auto) [place] # (Auto) Eos # (Auto) Baso # (Auto) Abs Immat Gran (auto) Absolute Neuts (auto) Absolute Nucleated RBC Nucleated RBC % (auto) Smear Tech's Comments Absolute Retic 0.054 Percent Retic 2.2 H Immature Retic Fraction 5.6 Retic Hgb Equivalent 33.5 VBG pH VBG pCO2 VBG pO2 VBG HCO3 VBG O2 Saturation VBG Base Excess Sodium Potassium Chloride Carbon Dioxide Anion Gap BUN Creatinine Estim Creat Clear Calc Estimated GFR POC Glucose 88 Random Glucose Calcium Phosphorus Magnesium Total Bilirubin Direct Bilirubin AST ALT Alkaline Phosphatase Lactate Dehydrogenase 260 H Total Protein Albumin Triglycerides Lipase TSH Free T4 Coronavirus (PCR) Influenza Type A (PCR) Influenza Type B (PCR) RSV RNA Qual (PCR) Blood Type Antibody Screen Crossmatch 11/23/20 11/23/20 11/24/20 18:02 21:57 00:07 WBC 4.9 RBC 2.34 L Hgb 7.7 L Hct 22.6 L MCV 96.6 MCH 32.9 MCHC 34.1 RDW 18.1 H Plt Count 40 L D MPV 9.3 L Immature Gran % (Auto) 0.2 Neut % (Auto) 41.2 L Lymph % (Auto) 55.7 H [place] % (Auto) 2.7 Eos % (Auto) 0.0 Baso % (Auto) 0.2 Lymph # (Auto) 2.7 [place] # (Auto) 0.1 Eos # (Auto) 0.0 Baso # (Auto) 0.0 Abs Immat Gran (auto) 0.01 Absolute Neuts (auto) 2.0 Absolute Nucleated RBC 0.000 Nucleated RBC % (auto) 0.0 Smear Tech's Comments VERIFIED Absolute Retic Percent Retic Immature Retic Fraction Retic Hgb Equivalent VBG pH VBG pCO2 VBG pO2 VBG HCO3 VBG O2 Saturation VBG Base Excess Sodium Potassium Chloride Carbon Dioxide Anion Gap BUN Creatinine Estim Creat Clear Calc Estimated GFR POC Glucose 87 127 H Random Glucose Calcium Phosphorus Magnesium Total Bilirubin Direct Bilirubin AST ALT Alkaline Phosphatase Lactate Dehydrogenase Total Protein Albumin Triglycerides Lipase TSH Free T4 Coronavirus (PCR) Influenza Type A (PCR) Influenza Type B (PCR) RSV RNA Qual (PCR) Blood Type Antibody Screen Crossmatch 11/24/20 11/24/20 11/24/20 03:50 05:15 05:15 WBC 7.1 RBC 2.49 L Hgb 8.0 L Hct 24.0 L MCV 96.4 MCH 32.1 MCHC 33.3 RDW 18.1 H Plt Count 43 L MPV 11.2 Immature Gran % (Auto) 0.3 Neut % (Auto) 38.0 L Lymph % (Auto) 58.0 H [place] % (Auto) 3.7 Eos % (Auto) 0.0 Baso % (Auto) 0.0 Lymph # (Auto) 4.1 [place] # (Auto) 0.3 Eos # (Auto) 0.0 Baso # (Auto) 0.0 Abs Immat Gran (auto) 0.02 Absolute Neuts (auto) 2.7 Absolute Nucleated RBC 0.000 Nucleated RBC % (auto) 0.0 Smear Tech's Comments Absolute Retic Percent Retic Immature Retic Fraction Retic Hgb Equivalent VBG pH VBG pCO2 VBG pO2 VBG HCO3 VBG O2 Saturation VBG Base Excess Sodium 134 L Potassium 4.7 Chloride 104 Carbon Dioxide 26 Anion Gap 9 L BUN 26 H Creatinine 0.81 Estim Creat Clear Calc 38.6 Estimated GFR > 60 POC Glucose 108 Random Glucose 101 Calcium 7.9 L Phosphorus 3.4 Magnesium 1.9 Total Bilirubin Direct Bilirubin AST ALT Alkaline Phosphatase Lactate Dehydrogenase Total Protein Albumin Triglycerides Lipase 703 H TSH Free T4 Coronavirus (PCR) Influenza Type A (PCR) Influenza Type B (PCR) RSV RNA Qual (PCR) Blood Type Antibody Screen Crossmatch 11/24/20 11/24/20 11/24/20 05:15 08:15 09:19 WBC RBC Hgb Hct MCV MCH MCHC RDW Plt Count MPV Immature Gran % (Auto) Neut % (Auto) Lymph % (Auto) [place] % (Auto) Eos % (Auto) Baso % (Auto) Lymph # (Auto) [place] # (Auto) Eos # (Auto) Baso # (Auto) Abs Immat Gran (auto) Absolute Neuts (auto) Absolute Nucleated RBC Nucleated RBC % (auto) Smear Tech's Comments Absolute Retic Percent Retic Immature Retic Fraction Retic Hgb Equivalent VBG pH 7.35 VBG pCO2 51 VBG pO2 46 VBG HCO3 28 VBG O2 Saturation 83.3 VBG Base Excess 1.4 Sodium Potassium Chloride Carbon Dioxide Anion Gap BUN Creatinine Estim Creat Clear Calc Estimated GFR POC Glucose 110 Random Glucose Calcium Phosphorus Magnesium Total Bilirubin 1.0 Direct Bilirubin 0.3 AST 353 H ALT 397 H Alkaline Phosphatase 259 H Lactate Dehydrogenase Total Protein 4.9 L Albumin 2.7 L Triglycerides Lipase TSH Free T4 Coronavirus (PCR) Influenza Type A (PCR) Influenza Type B (PCR) RSV RNA Qual (PCR) Blood Type Antibody Screen Crossmatch 11/24/20 13:08 WBC RBC Hgb Hct MCV MCH MCHC RDW Plt Count MPV Immature Gran % (Auto) Neut % (Auto) Lymph % (Auto) [place] % (Auto) Eos % (Auto) Baso % (Auto) Lymph # (Auto) [place] # (Auto) Eos # (Auto) Baso # (Auto) Abs Immat Gran (auto) Absolute Neuts (auto) Absolute Nucleated RBC Nucleated RBC % (auto) Smear Tech's Comments Absolute Retic Percent Retic Immature Retic Fraction Retic Hgb Equivalent VBG pH VBG pCO2 VBG pO2 VBG HCO3 VBG O2 Saturation VBG Base Excess Sodium Potassium Chloride Carbon Dioxide Anion Gap BUN Creatinine Estim Creat Clear Calc Estimated GFR POC Glucose 101 Random Glucose Calcium Phosphorus Magnesium Total Bilirubin Direct Bilirubin AST ALT Alkaline Phosphatase Lactate Dehydrogenase Total Protein Albumin Triglycerides Lipase TSH Free T4 Coronavirus (PCR) Influenza Type A (PCR) Influenza Type B (PCR) RSV RNA Qual (PCR) Blood Type Antibody Screen Crossmatch Microbiology Microbiology Results: Microbiology 11/23/20 11:31 Blood - Venous Blood Culture - Preliminary No growth after 24 hours. 11/23/20 11:31 Blood - Venous Blood Culture - Preliminary No growth after 24 hours. 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: Status: Acute (7) Weakness: Status: Acute (8) Acute hyponatremia: Status: Acute (9) Anemia: Status: Acute (10) Acute pancreatitis: Status: Acute (11) Adult failure to thrive: Status: Acute Assessment and Plan: At this point she slowly moving in the right direction somewhat less critical than she was yesterday with core body temperature restored at vital signs volume etc. and will continue to cover with broad-spectrum antibiotics including doxycycline in case there is a tick-borne Anaplasma infection that could have precipitated let us a hemolysis along with leukopenia and thrombocytopenia with elevated liver functions and in addition Zosyn and vancomycin as we await culture results Time Spent With Patient Time: Total time spent is greater than 50% in coordination of care (as documented) at patient's floor/unit and/or counseling patient: Total time spent with greater than 50% in coordination of care (as documented) at patient's floor/unit and/or counseling patient:: 40
[2020-11-24] MEDS: Piperacillin Sodium/Tazobactam 3.375 GM in 0.9 % Sodium Chloride 50 ML IV ×2 (15:32→20:27)
[2020-11-24] MEDS: vancomycin HCL 750 MG in 0.9 % Sodium Chloride 250 ML 270 MG IV (15:32)
[2020-11-24] MEDS: Hydrocortisone Sod Succ/PF 100 MG VIAL 50 MG IVPUSH (15:33)
[2020-11-24] MEDS: HYDROmorphone HCl 0.5 MG/0.5 ML SYRINGE IVPUSH (15:46)
[2020-11-24] MEDS: Levothyroxine Sodium 100 MCG VIAL 50 MCG IVPUSH (16:20)
[2020-11-24 16:52] LABS: Haptoglobin <8 mg/dL (43-212)
[2020-11-24 17:59] LABS: Glucose, Whole Blood 93 mg/dL (60-115)
[2020-11-24] MEDS: Doxycycline Hyclate 100 MG in 0.9 % Sodium Chloride 250 ML 167 MG IV (22:49)
[2020-11-24 23:30] LABS: Glucose, Whole Blood 128 mg/dL (60-115)
--- NOTE | 2020-11-24 23:39 | PC.NURSE ---
Passed bedside nursing swallow. Tolerating sips of water and ice cream. Regular diet ordered. Levo titrated off. Increasing alertness/orientation. Conversational.
[2020-11-25] VITALS (23 sets, daily range): BP systolic 99–126; BP diastolic 50–83; PULSE 56–88; RESP 10–15; TEMP 35.4–36.2; O2SAT 96–100; BMI 23.8
[2020-11-25] MEDS: HYDROmorphone HCl 0.5 MG/0.5 ML SYRINGE IVPUSH (00:50)
[2020-11-25] MEDS: Hydrocortisone Sod Succ/PF 100 MG VIAL 50 MG IVPUSH ×2 (03:18→15:57)
[2020-11-25] MEDS: Piperacillin Sodium/Tazobactam 3.375 GM in 0.9 % Sodium Chloride 50 ML IV ×4 (03:18→20:10)
[2020-11-25] MEDS: vancomycin HCL 750 MG in 0.9 % Sodium Chloride 250 ML 270 MG IV ×2 (04:08→15:59)
[2020-11-25 06:13] LABS: MANUAL DIFF FLAG SCAN; Monocytes Absolute Auto 0.2 X10*3/uL (0.1-1.2); Monocytes Percent Auto 3.1 % (2-11); PLT CLUMP 1; SCAN SMEAR FLAG 1
[2020-11-25 06:15] LABS: Hematocrit 21.6 % (37-47); Hemoglobin 7.2 g/dl (12.0-16.0); Lymphocytes Absolute Auto 2.8 X10*3/uL (1.2-4.9); Lymphocytes Percent Auto 57.2 % (20-40); Mean Corpuscular HGB Conc 33.3 g/dl (31.0-35.0); Mean Corpuscular Volume 99.1 fL (80-98); Neutrophils Percent Auto 39.7 % (45-73); Red Blood Count 2.18 X10*6/uL (4.20-5.50); Red Cell Distribution Width 17.8 % (11.0-16.0); White Blood Count 4.9 X10*3/uL (4.8-10.8)
[2020-11-25 06:21] LABS: Platelet Count 29 X10*3/uL (160-400)
[2020-11-25 06:21] LABS: Glucose, Whole Blood 125 mg/dL (60-115)
[2020-11-25 06:30] LABS: pH VBG 7.35 (7.32-7.43)
[2020-11-25 06:31] LABS: Base Excess VBG 2.5 mmol/L; HCO3 VBG 29 mmol/L; PCO2 VBG 53 mmhg; PO2 VBG 43 mmhg
[2020-11-25 06:39] LABS: Alanine Aminotransferase 317 U/L (0-31); Albumin Level 2.6 g/dL (3.5-5.0); Alkaline Phosphatase 247 U/L (39-117); Anion Gap 6 (12-20); Aspartate Amino Transferase 258 U/L (5-31); Bilirubin Total 0.6 mg/dL (0.0-1.0); Blood Urea Nitrogen 24 mg/dL (9-16); Calcium 7.7 mg/dL (8.4-10.2); Carbon Dioxide 28 mmol/L (22-29); Chloride 107 mmol/L (96-108); Creatinine Clr Calc Pharmacy 57.4; Estimated Glomerular Filt Rate > 60; Glucose Random 118 mg/dL (60-115); Magnesium 1.8 mg/dL (1.6-2.6); Phosphorus 2.8 mg/dL (2.7-4.5); Potassium 4.2 mmol/l (3.3-5.1); Sodium 137 mmol/L (135-145); Total Protein 4.5 g/dL (6.5-8.0)
[2020-11-25 07:46] LABS: SLIDE REVIEW VERIFIED
[2020-11-25 08:02] LABS: Lipase 881 U/L (8-78)
[2020-11-25] MEDS: 0.9 % Sodium Chloride Flush 3 ML SYRINGE IVFLUSH ×3 (08:43→23:26)
[2020-11-25] MEDS: Levothyroxine Sodium 100 MCG VIAL 50 MCG IVPUSH (08:43)
[2020-11-25] MEDS: Doxycycline Hyclate 100 MG in 0.9 % Sodium Chloride 250 ML 166.67 MG IV ×2 (10:20→22:03)
[2020-11-25 12:23] LABS: Glucose, Whole Blood 136 mg/dL (60-115)
--- NOTE | 2020-11-25 13:10 | P.PNCC_ITS ---
Subjective Subjective Date of Service: 11/25/20 Interval History: 75-year-old female with end-stage very advanced CLL with combined immuno deficiencies including hypogammaglobulinemia for which she received IV IG when she was here and also severe leukopenia/neutropenia and therefore being covered with broad-spectrum antibiotics for for enterobacteria a.c. and and staph coverage She was profoundly hypothermic and hypotensive treated as a presumed sepsis on because of her immuno deficiency and and the extensive pancytopenia implying very advanced extensive marrow replacement and she had just a limited reticulocyte count response to her anemia and because of the elevated liver function tests and the and the low haptoglobin high LDH so I am assuming that there is a degree of immune hemolysis going on as well but I had concerns for ability of and Anaplasma oasis for arguments sake because of her living situation being in [facility] and therefore she was also covered with doxycycline and it seems that the liver functions are slowly resolving and now status post 1 unit of red cell and platelet transfusion platelet still are 29,000 in a safe range hemoglobin 7.2 and slowly falling but the patient's mental status is completely reversed no longer encephalopathic nonfocal neurologically all metabolic issues are comfortable and is no renal insufficiency and her serum lipase is resolving meaning that her pancreatitis also is getting better Physical Exam Vital Signs: Vital Signs: Last Vital Signs Temp 95.9 F L 11/25/20 12:00 Pulse 74 11/25/20 12:00 Resp 14 11/25/20 12:00 BP 117/60 11/25/20 12:00 Pulse Ox 98 11/25/20 12:00 Body Mass Index 23.8 Const: Other: By exam awake and oriented and nonfocal neurologically Skin is intact with no wounds no cellulitis no livedo Cardiac exam with normal S1 and normal S2 with no gallops no rubs no murmurs no neck veins and good bilateral carotid upstrokes Chest clear Abdomen benign no bruits no tenderness no organomegaly Objective Data Labs CBC & Chem 7: 11/25/20 05:30 11/25/20 05:30 Labs: Laboratory Results - last 24 hr 11/23/20 11/24/20 11/24/20 17:14 05:15 13:08 WBC RBC Hgb Hct MCV MCH MCHC RDW Plt Count MPV Immature Gran % (Auto) Neut % (Auto) Lymph % (Auto) [place] % (Auto) Eos % (Auto) Baso % (Auto) Lymph # (Auto) [place] # (Auto) Eos # (Auto) Baso # (Auto) Abs Immat Gran (auto) Absolute Neuts (auto) Absolute Nucleated RBC Nucleated RBC % (auto) Smear Tech's Comments Haptoglobin <8 L VBG pH VBG pCO2 VBG pO2 VBG HCO3 VBG O2 Saturation VBG Base Excess Sodium Potassium Chloride Carbon Dioxide Anion Gap BUN Creatinine Estim Creat Clear Calc Estimated GFR POC Glucose 101 Random Glucose Calcium Phosphorus Magnesium Total Bilirubin AST ALT Alkaline Phosphatase Total Protein Albumin Lipase Cortisol 24.2 H 11/24/20 11/24/20 11/25/20 17:55 23:26 05:30 WBC 4.9 RBC 2.18 L Hgb 7.2 L Hct 21.6 L MCV 99.1 H MCH 33.0 MCHC 33.3 RDW 17.8 H Plt Count 29 L D MPV 10.0 Immature Gran % (Auto) 0.0 Neut % (Auto) 39.7 L Lymph % (Auto) 57.2 H [place] % (Auto) 3.1 Eos % (Auto) 0.0 Baso % (Auto) 0.0 Lymph # (Auto) 2.8 [place] # (Auto) 0.2 Eos # (Auto) 0.0 Baso # (Auto) 0.0 Abs Immat Gran (auto) 0.00 Absolute Neuts (auto) 2.0 Absolute Nucleated RBC 0.000 Nucleated RBC % (auto) 0.0 Smear Tech's Comments VERIFIED Haptoglobin VBG pH VBG pCO2 VBG pO2 VBG HCO3 VBG O2 Saturation VBG Base Excess Sodium Potassium Chloride Carbon Dioxide Anion Gap BUN Creatinine Estim Creat Clear Calc Estimated GFR POC Glucose 93 128 H Random Glucose Calcium Phosphorus Magnesium Total Bilirubin AST ALT Alkaline Phosphatase Total Protein Albumin Lipase Cortisol 11/25/20 11/25/20 11/25/20 05:30 05:30 05:30 WBC RBC Hgb Hct MCV MCH MCHC RDW Plt Count MPV Immature Gran % (Auto) Neut % (Auto) Lymph % (Auto) [place] % (Auto) Eos % (Auto) Baso % (Auto) Lymph # (Auto) [place] # (Auto) Eos # (Auto) Baso # (Auto) Abs Immat Gran (auto) Absolute Neuts (auto) Absolute Nucleated RBC Nucleated RBC % (auto) Smear Tech's Comments Haptoglobin VBG pH 7.35 VBG pCO2 53 VBG pO2 43 VBG HCO3 29 VBG O2 Saturation 79.0 VBG Base Excess 2.5 Sodium 137 Cancelled Potassium 4.2 Cancelled Chloride 107 Cancelled Carbon Dioxide 28 Cancelled Anion Gap 6 L Cancelled BUN 24 H Cancelled Creatinine 0.66 Cancelled Estim Creat Clear Calc 57.4 Cancelled Estimated GFR > 60 Cancelled POC Glucose Random Glucose 118 H Cancelled Calcium 7.7 L Cancelled Phosphorus 2.8 Magnesium 1.8 Total Bilirubin 0.6 Cancelled AST 258 H Cancelled ALT 317 H Cancelled Alkaline Phosphatase 247 H Cancelled Total Protein 4.5 L Cancelled Albumin 2.6 L Cancelled Lipase 881 H Cortisol 11/25/20 11/25/20 05:58 12:20 WBC RBC Hgb Hct MCV MCH MCHC RDW Plt Count MPV Immature Gran % (Auto) Neut % (Auto) Lymph % (Auto) [place] % (Auto) Eos % (Auto) Baso % (Auto) Lymph # (Auto) [place] # (Auto) Eos # (Auto) Baso # (Auto) Abs Immat Gran (auto) Absolute Neuts (auto) Absolute Nucleated RBC Nucleated RBC % (auto) Smear Tech's Comments Haptoglobin VBG pH VBG pCO2 VBG pO2 VBG HCO3 VBG O2 Saturation VBG Base Excess Sodium Potassium Chloride Carbon Dioxide Anion Gap BUN Creatinine Estim Creat Clear Calc Estimated GFR POC Glucose 125 H 136 H Random Glucose Calcium Phosphorus Magnesium Total Bilirubin AST ALT Alkaline Phosphatase Total Protein Albumin Lipase Cortisol Microbiology Microbiology Results: Microbiology 11/23/20 11:31 Blood - Venous Blood Culture - Preliminary No growth after 24 hours. 11/23/20 11:31 Blood - Venous Blood Culture - Preliminary No growth after 24 hours. 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: Status: Acute (7) Weakness: Status: Acute (8) Acute hyponatremia: Status: Acute (9) Anemia: Status: Acute (10) Acute pancreatitis: Status: Acute (11) Adult failure to thrive: Status: Acute Assessment and Plan: So for now we continue with TPN with trace element and vitamin replacement therapy and at least 1 or 2 more days of broad-spectrum antibiotics until we get back consistently negative cultures and awaiting the serology results on tick- borne disease and in in the meanwhile pursuing a swallow study with modify barium per speech therapy Time Spent With Patient Time: Total time spent is greater than 50% in coordination of care (as documented) at patient's floor/unit and/or counseling patient: Total time spent with greater than 50% in coordination of care (as documented) at patient's floor/unit and/or counseling patient:: 30
[2020-11-25] MEDS: 0.9 % Sodium Chloride 1,000 ML 60 ML IVCONT (16:55)
[2020-11-25 18:16] LABS: Glucose, Whole Blood 127 mg/dL (60-115)
--- NOTE | 2020-11-25 19:16 | PC.NURSE ---
PT A&O X 3, SITUATION UNKNOWN TO HER. REPEATS STATESMENTS AT TIMES. SON ELIO DROPPED OFF AN IPAD, PHONE, SMALL ENGINE TRAINER, BOOK AND GLASSES SO PT IS ABLE TO SPEAK WITH HER FAMILY. PHONE AND IPAD CODES WRITTEN ON WHITE BOARD FOR REMINDER. FAMILY UPDATED BY THIS RN. AFEBRILE, VSS. DIMINSIHED THROUGHOUT ON ROOM AIR. MORALES WNL. ABDOMEN FIRM AND DISTENDED, FAILED ATTEMPT OF BM TODAY. BEDSIDE SWALLOW EVAL PERFORMED BY S&[facility], FAILED - ICE CHIPS OKAY PER [facility]. MODIFIED BARIUM SWALLOW EVAL ORDERED AND TO BE PERFORMED 11/26/20. [facility] TO FOLLOW UP TOMORROW. Q2H REPO, BARRIER CREAM APPLIED, PREVALON MATTRESS UTILIZED.
[2020-11-25 23:46] LABS: Glucose, Whole Blood 142 mg/dL (60-115)
[2020-11-26] VITALS (19 sets, daily range): BP systolic 92–141; BP diastolic 47–66; PULSE 55–125; RESP 11–18; TEMP 35.5–36.6; O2SAT 90–98; BMI 23.0
[2020-11-26] MEDS: Piperacillin Sodium/Tazobactam 3.375 GM in 0.9 % Sodium Chloride 50 ML IV (02:52)
[2020-11-26] MEDS: Hydrocortisone Sod Succ/PF 100 MG VIAL 50 MG IVPUSH (02:52)
[2020-11-26 04:27] LABS: Vancomycin Trough 5.8 mcg/mL (10.0-20.0)
[2020-11-26] MEDS: vancomycin HCL 750 MG in 0.9 % Sodium Chloride 250 ML 250 MG IV (04:55)
[2020-11-26 05:33] LABS: Imm Gran Abs Auto 0.01 X10*3/uL (0.00-0.03); Imm Gran Pct Auto 0.2 % (0.0-0.4); MANUAL DIFF FLAG SCAN; PLT CLUMP 1; SCAN SMEAR FLAG 1
[2020-11-26 05:35] LABS: Basophils Percent Auto 0.2 % (0-2); Hematocrit 20.4 % (37-47); Lymphocytes Absolute Auto 2.5 X10*3/uL (1.2-4.9); Lymphocytes Percent Auto 54.2 % (20-40); Mean Corpuscular HGB Conc 33.3 g/dl (31.0-35.0); Mean Platelet Volume 11.3 fL (9.4-12.3); Monocytes Absolute Auto 0.2 X10*3/uL (0.1-1.2); Monocytes Percent Auto 3.3 % (2-11); Neutrophils Absolute Auto 1.9 X10*3/uL (2.0-8.3); Neutrophils Percent Auto 42.1 % (45-73); Platelet Count 30 X10*3/uL (160-400); Red Blood Count 2.06 X10*6/uL (4.20-5.50); Red Cell Distribution Width 17.2 % (11.0-16.0); White Blood Count 4.5 X10*3/uL (4.8-10.8)
[2020-11-26 05:40] LABS: Hemoglobin 6.8 g/dl (12.0-16.0)
[2020-11-26 05:40] LABS: HCO3 VBG 26 mmol/L; Oxygen Saturation VBG 65.8 %; PCO2 VBG 45 mmhg; PO2 VBG 35 mmhg; pH VBG 7.37 (7.32-7.43)
[2020-11-26 06:03] LABS: SLIDE REVIEW VERIFIED
[2020-11-26 06:30] LABS: Albumin Level 2.4 g/dL (3.5-5.0); Alkaline Phosphatase 219 U/L (39-117); Anion Gap 6 (12-20); Aspartate Amino Transferase 247 U/L (5-31); Bilirubin Total 0.6 mg/dL (0.0-1.0); Blood Urea Nitrogen 27 mg/dL (9-16); Calcium 7.6 mg/dL (8.4-10.2); Carbon Dioxide 27 mmol/L (22-29); Chloride 108 mmol/L (96-108); Creatinine Clr Calc Pharmacy 59.2; Estimated Glomerular Filt Rate > 60; Glucose Random 131 mg/dL (60-115); Magnesium 1.7 mg/dL (1.6-2.6); Phosphorus 2.4 mg/dL (2.7-4.5); Potassium 3.9 mmol/l (3.3-5.1); Sodium 137 mmol/L (135-145); Total Protein 4.3 g/dL (6.5-8.0)
[2020-11-26 06:34] LABS: Alanine Aminotransferase 283 U/L (0-31); Lipase 1024 U/L (8-78)
[2020-11-26 07:49] LABS: Glucose, Whole Blood 200 mg/dL (60-115)
[2020-11-26 07:51] LABS: Glucose, Whole Blood 79 mg/dL (60-115)
--- NOTE | 2020-11-26 09:12 | MHC.SLORD ---
MBSS is scheduled for 2:45pm today. Date of : 1945 Age: 75 Date of Registration: 11/23/20 Speech Language Pathology Order Status:
[2020-11-26] MEDS: 0.9 % Sodium Chloride Flush 3 ML SYRINGE IVFLUSH ×2 (09:44→22:27)
--- NOTE | 2020-11-26 10:42 | MHC.CLN ---
RE: CONSULT PT IS MILDLY MALNOURISHED PT CURRENTLY NPO PENDING MBS SCHEDULED TODAY PER DELINQUENCY PREVENTION SOCIAL WORKER PT RECEIVING TPN D15 AA5% AT 60CC/HR PROVIDES 1022KCALS, 72G PROTEIN (1.5G/KG) SEE ALSO CLINICAL NUTRITION ASSESSMENT FOLLOWING
[2020-11-26] MEDS: Potassium Phosphate 30 MMOL in 0.9 % Sodium Chloride 500 ML 85 MMOL IV (10:55)
[2020-11-26] MEDS: Doxycycline Hyclate 100 MG in 0.9 % Sodium Chloride 250 ML 166.67 MG IV ×2 (10:55→22:27)
[2020-11-26] MEDS: Levothyroxine Sodium 100 MCG VIAL 50 MCG IVPUSH (10:55)
--- NOTE | 2020-11-26 11:37 | PM.HEMONCCN ---
Subjective - Subjective Patient: new to practice Consult date: 11/26/20 Requesting Physician: Dr. Mcbride. Primary Care Provider: Unknown Physician HPI - Consult Narrative Reason for consult: History of CLL, anemia and thrombocytopenia Narrative: Pita Isbell is a 75 year old female who is admitted to the ICU with mental status changes. Her son found her lethargic and unarousable. dry box operator were called and her blood sugar was 22. She was brought to the hospital for further workup. Her labs on admission revealed a hemoglobin of 7.7 gram/dL, platelets 40 K. mildly elevated LDH of 260, haptoglobin less than 8, elevated liver enzymes with normal total and direct bilirubin. Imaging of abdomen did not reveal hepatosplenomegaly or lymphadenopathy. According to the patient, she does carry a diagnosis of anorexia nervosa and her weight is generally between 90- 110 lb. She was diagnosed with CLL more than 10 years ago and was under the care of a Dr. Henriquez in [facility]. In April/May of this year she was diagnosed with bilateral leg swelling as well as nonhealing cellulitis of lower extremity. She was found to have low platelets and was transfused platelets and later IVIG. Apparently she was not told of anemia. Her health has been declining rapidly in the last 2 months. She reports generalized swelling of the abdomen, generalized weakness and loss of appetite. She used to drink a glass of wine with dinner in the past, in the last few months she has had no appetite and stopped drinking alcohol. She denies fever or chills. She does not know if she lost weight. Review of Systems - Constitutional Reports as per HPI, Reports fatigue, Denies fever(s), Reports lack of energy, Reports malaise, Reports poor appetite - Cardiovascular Denies chest pain - Respiratory Denies cough - Gastrointestinal Reports bloating, Reports constipation, Reports difficulty swallowing Oncology Screenings - ECOG Performance Status ECOG Performance Status: 4 [facility] Medical History: Medical History (Last Updated 11/26/20 @ 13:33 by Lazaro Mcbride MD) Anorexia CLL (chronic lymphocytic leukemia) Failure to thrive Hypothyroid Family History: Family History (Last Updated 11/26/20 @ 12:26 by Rehana Goldstein MD) Sister Anorexia nervosa Smoking status: Unknown if ever smoked Alcohol intake: former Home Medications and Allergies Current Medications: Current Medications Generic Name Dose Route Start Last Admin Trade Name Freq PRN Reason Stop Dose Admin Hydromorphone HCl 0.5 mg 11/24/20 14:55 11/25/20 00:50 Hydromorphone Hcl 0.5 Mg/0.5 Ml Syringe IVPUSH 0.5 mg Q4H PRN Administration Breakthrough Pain Norepinephrine Bitartrate 8 mg in 250 mls @ 0 mls/hr 11/23/20 15:30 11/25/20 18:11 Levophed IVCONT Infused .Q0M ROMMEL Titration Protocol Per Protocol Sodium Chloride 1,000 mls @ 60 mls/hr 11/23/20 15:30 11/26/20 11:17 Ns IVCONT Infused .[id number] ROMMEL Infusion Doxycycline Hyclate 100 mg/ 250 mls @ 166.67 mls/hr 11/24/20 10:00 11/26/20 10:55 Sodium Chloride IV 166.67 mls/hr Q12H ROMMEL Administration Multivitamins 14 ml/ Trace 1,440 mls @ 60 mls/hr 11/25/20 18:00 11/25/20 18:17 Metals 1.4 ml/ Amino Acids/ IV 11/26/20 17:59 60 mls/hr Electrolytes DAILY@1800 ROMMEL Administration Potassium Phosphate 30 mmol/ 510 mls @ 85 mls/hr 11/26/20 10:17 11/26/20 10:55 Sodium Chloride IV 11/26/20 16:16 85 mls/hr ONCE ONE Administration Methylprednisolone Sodium 100.64 mls @ 100 mls/hr 11/27/20 09:00 Succinate 40 mg/ Sodium IV Chloride DAILY ROMM[facility] Levothyroxine Sodium 50 mcg 11/24/20 16:15 11/26/20 10:55 Levothyroxine Sodium 100 Mcg Vial IVPUSH 50 mcg DAILY ROMMEL Administration Pharmacy Consult 1 each 11/24/20 14:53 Consult Rx Vancomycin Dosing MISCELLANE DAILY PRN Consult order Sodium Chloride 3 ml 11/23/20 16:00 11/26/20 09:44 0.9 % Sodium Chloride Flush 3 Ml Syringe IVFLUSH 3 ml QSHIFT ROMMEL Administration Allergies Allergy/AdvReac Type Severity Reaction Status Date / Time No Known Allergies Allergy Verified 11/23/20 10:26 Physical Exam Vital signs: Vital Signs Temp 96.1 F L 11/26/20 11:00 Pulse 56 11/26/20 11:00 Resp 14 11/26/20 11:00 BP 125/63 11/26/20 11:00 Pulse Ox 96 11/26/20 11:00 Intake & Output 11/25/20 11/26/20 11/26/20 18:59 06:59 18:59 Intake Total 3055 / 4190 1135 / 4190 480 / 480 Output Total 415 / 1050 635 / 1050 145 / 145 Balance 2640 / 3140 500 / 3140 335 / 335 Urine Output (Average ml/kg/hr) 0.57 0.99 0.23 Intake: Intake, Oral Amount 0 / 0 Intake (Blood Product) Amount 0 / 0 Red Blood Cells (E0382) Unit 0 / 0 [id number] Intake, IV Amount 3055 / 4190 1135 / 4190 480 / 480 Doxycycline Hyclate 100 mg In 0 250 / 500 250 / 500 .9 % Sodium Chloride 250 ml @ 166.67 mls/hr IV Q12H [facility] Rx#: [id number] AA 5 %/Calcium/Lytes/Dext 15 % 1440 / 1440 2,000 ml @ 60 mls/hr IV DAILY@ 1800 ROMMEL with MVI, Adult 14 ml with Trace Elements w/o chromium 1.4 ml Rx#:[id number] Piperacillin Sodium/Tazobactam 100 / 200 100 / 200 3.375 gm In 0.9 % Sodium Chloride 50 ml @ 100 mls/hr IV Q6H [facility] Rx#:[id number] vancomycin HCL 750 mg In 0.9 % 265 / 265 265 / 265 Sodium Chloride 250 ml @ 270 mls/hr IV Q12H [facility] Rx#: [id number] 0.9 % Sodium Chloride 1,000 ml 1000 / 1785 785 / 1785 215 / 215 @ 60 mls/hr IVCONT .[id number] [facility] Rx#:[id number] Norepinephrine Bitartrate/NS 8 0 / 0 mg In 250 ml @ Per Protocol IVCONT .Q0M [facility] Rx#:[id number] Output: Output, Post Void Residual 35 / 35 Amount Output, Urine Amount (Catheter) 380 / 1015 635 / 1015 145 / 145 Urethral 380 / 1015 635 / 1015 145 / 145 Other: NPO Yes Number of Bowel Movements 1 Last Bowel Movement 01/04/21 Stool Bedpan Stool Amount Moderate Stool Color Brown Stool Consistency Soft Weight 53.5 kg 53.5 kg Weight 53.5 kg - Constitutional Present: mild distress - Routine HEENT Exam Head: Present: normal inspection Eye: Present: EOMI, conjunctivae pale - Routine Neck Exam Present: supple. Absent: lymphadenopathy - Routine Chest/Breast/Axilla Exam Axillae: Absent: lymphadenopathy - Routine Respiratory Exam Absent: rhonchi, wheezes - Routine Cardiovascular Exam Cardiovascular: Present: S1, S2 - Routine Abdominal Exam Present: distended, hypoactive bowel sounds - Routine Extremities Exam Present: pedal edema - Routine Skin Exam Present: ecchymosis Comments: Old bruises of both upper extremities as well as right periorbital region. Hem/Onc Consult Result - Labs CBC & Chem 7: 11/26/20 05:10 11/26/20 05:10 Labs: Short CBC 11/26/20 Range/Units 05:10 WBC 4.5 L (4.8-10.8) X10*3/uL Hgb 6.8 L* (12.0-16.0) g/dl Hct 20.4 L* (37-47) % Plt Count 30 L (160-400) X10*3/uL BMP 11/26/20 05:10 Sodium 137 Potassium 3.9 Chloride 108 Carbon Dioxide 27 BUN 27 H Creatinine 0.64 Calcium 7.6 L Liver Function 11/26/20 Range/Units 05:10 Total Bilirubin 0.6 (0.0-1.0) mg/dL AST 247 H (5-31) U/L ALT 283 H (0-31) U/L Alkaline Phosphatase 219 H (39-117) U/L Albumin 2.4 L (3.5-5.0) g/dL Assessment and Plan (1) Chronic lymphocytic leukemia Status: Chronic 1. This is a 75-year-old woman with significant past history of CLL and anorexia nervosa presenting with worsening anemia and thrombocytopenia. 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 She has been under the care of an oncologist at [facility] for over 10 years. She has not needed treatment for her CLL thus far. She says she was never diagnosed with lymphadenopathy or anemia. Some of her chronic medical issues appear to have been worsened by her longstanding anorexia nervosa and she was contemplating inpatient treatment for this but she was denied admission at a psychiatric facility because of her cytopenias and CLL. She does not have lymphadenopathy or hepatosplenomegaly. She appears to have hemolytic anemia as well as autoimmune thrombocytopenia. She does not have coagulopathy to suggest DIC. LDH and Clay test pending. Her kidney functions are stable. I have recommended steroids, Solu-Medrol 40 mg IV daily for her anemia and thrombocytopenia which could be related to underlying CLL. This is an indication for her to be started on treatment for CLL. This can be done upon discharge with her own oncologist. I also recommend Blood transfusion to keep hemoglobin around 8 gram/dL. I thank you very much for this consultation, will follow with you.
[2020-11-26 12:14] LABS: Glucose, Whole Blood 124 mg/dL (60-115)
--- NOTE | 2020-11-26 13:27 | P.PNCC_ITS ---
Subjective Subjective Date of Service: 11/26/20 Interval History: 75-year-old lady with underlying history of CLL combined with IgG deficiency with previous IVIG treatment and recent admission to [facility], later discharged to rehab admitted on 11/23/2020 with failure to thrive, hypotension, hypothermia, and worsening pancytopenia briefly requiring pressors. Also noted to have hemolytic anemia and hypothyroidism. Started on systemic glucocorticoids and Synthroid, requiring intermittent red cell transfusion. Now evaluated by oncology service and being considered for IVIG. Physical Exam Vital Signs: Vital Signs: Last Vital Signs Temp 96.1 F L 11/26/20 12:00 Pulse 59 11/26/20 12:00 Resp 12 11/26/20 12:00 BP 122/57 L 11/26/20 12:00 Pulse Ox 96 11/26/20 12:00 Body Mass Index 23.0 Const: General: no acute distress, alert and awake Eyes: Sclerae: sclerae normal EOM: EOMs intact bilaterally Neck: Neck: Yes no lymphadenopathy, Yes trachea midline and Yes supple Resp: Effort & Inspection: normal respiratory effort and no respiratory distress Auscultation: clear to auscultation bilaterally Cardio: Rate: regular rate Rhythm: regular rhythm Heart sounds: no gallops, no murmurs and no rubs GI: Palpation (GI): Soft to palpation and Other GI palpation findings present ( Nontender) Auscultation: normal bowel sounds Extrem: General: No clubbing, No cyanosis, Yes edema (Trace bilateral) and Yes other (Chronic leg wounds) Objective Data Labs CBC & Chem 7: 11/26/20 05:10 11/26/20 05:10 Labs: Laboratory Results - last 24 hr 11/23/20 11/23/20 11/23/20 10:00 12:52 13:38 WBC RBC Hgb Hct MCV MCH MCHC RDW Plt Count MPV Immature Gran % (Auto) Neut % (Auto) Lymph % (Auto) [place] % (Auto) Eos % (Auto) Baso % (Auto) Lymph # (Auto) [place] # (Auto) Eos # (Auto) Baso # (Auto) Abs Immat Gran (auto) Absolute Neuts (auto) Absolute Nucleated RBC Nucleated RBC % (auto) Smear Tech's Comments VBG pH VBG pCO2 VBG pO2 VBG HCO3 VBG O2 Saturation VBG Base Excess Sodium Potassium Chloride Carbon Dioxide Anion Gap BUN Creatinine Estim Creat Clear Calc Estimated GFR POC Glucose 79 200 H Random Glucose Calcium Phosphorus Magnesium Total Bilirubin AST ALT Alkaline Phosphatase Total Protein Albumin Lipase Vancomycin Trough Blood Type A Negative Antibody Screen NEGATIVE Crossmatch See Detail 11/25/20 11/25/20 11/26/20 18:11 23:41 03:08 WBC RBC Hgb Hct MCV MCH MCHC RDW Plt Count MPV Immature Gran % (Auto) Neut % (Auto) Lymph % (Auto) [place] % (Auto) Eos % (Auto) Baso % (Auto) Lymph # (Auto) [place] # (Auto) Eos # (Auto) Baso # (Auto) Abs Immat Gran (auto) Absolute Neuts (auto) Absolute Nucleated RBC Nucleated RBC % (auto) Smear Tech's Comments VBG pH VBG pCO2 VBG pO2 VBG HCO3 VBG O2 Saturation VBG Base Excess Sodium Potassium Chloride Carbon Dioxide Anion Gap BUN Creatinine Estim Creat Clear Calc Estimated GFR POC Glucose 127 H 142 H Random Glucose Calcium Phosphorus Magnesium Total Bilirubin AST ALT Alkaline Phosphatase Total Protein Albumin Lipase Vancomycin Trough 5.8 L Blood Type Antibody Screen Crossmatch 11/26/20 11/26/20 11/26/20 05:10 05:10 05:12 WBC 4.5 L RBC 2.06 L Hgb 6.8 L* Hct 20.4 L* MCV 99.0 H MCH 33.0 MCHC 33.3 RDW 17.2 H Plt Count 30 L MPV 11.3 Immature Gran % (Auto) 0.2 Neut % (Auto) 42.1 L Lymph % (Auto) 54.2 H [place] % (Auto) 3.3 Eos % (Auto) 0.0 Baso % (Auto) 0.2 Lymph # (Auto) 2.5 [place] # (Auto) 0.2 Eos # (Auto) 0.0 Baso # (Auto) 0.0 Abs Immat Gran (auto) 0.01 Absolute Neuts (auto) 1.9 L Absolute Nucleated RBC 0.000 Nucleated RBC % (auto) 0.0 Smear Tech's Comments VERIFIED VBG pH 7.37 VBG pCO2 45 VBG pO2 35 VBG HCO3 26 VBG O2 Saturation 65.8 VBG Base Excess 0.0 Sodium 137 Potassium 3.9 Chloride 108 Carbon Dioxide 27 Anion Gap 6 L BUN 27 H Creatinine 0.64 Estim Creat Clear Calc 59.2 Estimated GFR > 60 POC Glucose Random Glucose 131 H Calcium 7.6 L Phosphorus 2.4 L Magnesium 1.7 Total Bilirubin 0.6 AST 247 H ALT 283 H Alkaline Phosphatase 219 H Total Protein 4.3 L Albumin 2.4 L Lipase 1024 H Vancomycin Trough Blood Type Antibody Screen Crossmatch 11/26/20 12:11 WBC RBC Hgb Hct MCV MCH MCHC RDW Plt Count MPV Immature Gran % (Auto) Neut % (Auto) Lymph % (Auto) [place] % (Auto) Eos % (Auto) Baso % (Auto) Lymph # (Auto) [place] # (Auto) Eos # (Auto) Baso # (Auto) Abs Immat Gran (auto) Absolute Neuts (auto) Absolute Nucleated RBC Nucleated RBC % (auto) Smear Tech's Comments VBG pH VBG pCO2 VBG pO2 VBG HCO3 VBG O2 Saturation VBG Base Excess Sodium Potassium Chloride Carbon Dioxide Anion Gap BUN Creatinine Estim Creat Clear Calc Estimated GFR POC Glucose 124 H Random Glucose Calcium Phosphorus Magnesium Total Bilirubin AST ALT Alkaline Phosphatase Total Protein Albumin Lipase Vancomycin Trough Blood Type Antibody Screen Crossmatch Microbiology Microbiology Results: Microbiology 11/23/20 11:31 Blood - Venous Blood Culture - Preliminary No growth after 48 hours. 11/23/20 11:31 Blood - Venous Blood Culture - Preliminary No growth after 48 hours. Progress Note: A&P Assessment and plan (1) Chronic lymphocytic leukemia: Status: Chronic Assessment and Plan: Assessment: 75-year-old lady with underlying CLL and hypogammaglobulinemia a dmitted with failure to thrive and progressive pancytopenia briefly requiring pressor support Plan: Neuro: No acute issues. Cardiac: No acute issues. Pulmonary: No acute issues. Renal: No acute issues. Endo: Hypothyroidism, continue with thyroid replacement. GI: No acute issues. ID: No evidence of sepsis septic shock. Empirically covered with doxycycline for possible rickettsial disease until serologies finalize. Heme/Onc: Underlying CLL with hypogammaglobulinemia and worsening pancytopenia. Oncology service care appreciated. Changed hydrocortisone to Solu-Medrol as per recommendations. Evaluation for possible IVIG ongoing. Psych: No acute issues. Miscellaneous: No acute issues. Prophylaxis: Intermittent pneumatic compression Diet: Pending modified barium swallow Critical care time spent: 0 (2) Adult failure to thrive: Status: Acute (3) Pancytopenia, acquired: Status: Acute (4) Hypothyroid: Status: Acute (5) Protein-calorie malnutrition, moderate: Status: Acute (6) Hypogammaglobulinemia, acquired: Status: Acute Time Spent With Patient Total time spent with greater than 50% in coordination of care (as documented) at patient's floor/unit and/or counseling patient:: 45
[2020-11-26 13:43] LABS: Fibrinogen 171 MG/DL (259-690); INTERNATIONAL NORM RATIO 1.1 (0.9-1.1); Prothrombin Time 12.7 SEC (10.8-13.0)
[2020-11-26 13:46] LABS: Partial Thromboplastin Time 31.8 SEC (24.1-38.0)
--- NOTE | 2020-11-26 14:14 | MHC.CM.PN ---
Patient is currently in ICU but will be transferred to [facility] today. Patient hospitalized in [facility], went to a short term rehab facility and then was discharged home with her son in the area. Patient lives in [facility]. Patient currently has TPN infusing. Anticipate patient will be able to safely return to son's house once medically stable. Physical therapy eval for home safety may be needed when medically stable. Continue to monitor for d/c needs.
--- NOTE | 2020-11-26 14:45 | FL_ITS ---
EXAMINATION: XR BARIUM SWALLOW CLINICAL INFORMATION: Difficulty swallowing. COMPARISON: None TECHNIQUE: Routine modified barium swallow was performed in lateral projection only oral administration of various consistencies of food coated with barium. FINDINGS: On oral administration of thin barium, apple puree, pudding, pudding saltine crackers and barium coated chicken there is slow propagation of bolus from the oral cavity through the pharynx and esophagus without obstruction. There is a trace laryngeal penetration seen and essentially with puree but not seen subsequently. No laryngeal aspiration. Minimal retention of barium in the valleculae and piriform sinuses. Patient has a right jugular dialysis neck catheter FLUOROSCOPY TIME: 3.8 minutes DOSE AREA PRODUCT: 2.467 uGy-m2 (microgray-meter squared) FL/FL barium swallow modified IMPRESSION: Slight delay in the oral phase but no obstruction. Trace laryngeal penetration seen on initial exam but no laryngeal aspiration seen.
[2020-11-26 16:59] LABS: Babesia Smear NEGATIVE (NEGATIVE)
[2020-11-26 18:07] LABS: Glucose, Whole Blood 100 mg/dL (60-115)
[2020-11-26 20:37] LABS: Lactate Dehydrogenase 260 U/L (122-220)
[2020-11-27 03:34] VITALS: BP 135/58; PULSE 48; RESP 16; TEMP 36.3; O2SAT 98
[2020-11-27 03:43] LABS: Glucose, Whole Blood 66 mg/dL (60-115)
[2020-11-27 06:13] VITALS: BMI 22.6
[2020-11-27 06:24] LABS: Glucose, Whole Blood 57 mg/dL (60-115)
[2020-11-27 06:49] LABS: Basophils Percent Auto 0.2 % (0-2); Hematocrit 29.1 % (37-47); Hemoglobin 9.5 g/dl (12.0-16.0); MANUAL DIFF FLAG SCAN; Mean Corpuscular HGB Conc 32.6 g/dl (31.0-35.0); Mean Corpuscular Hemoglobin 31.1 pg (27.0-33.0); Mean Corpuscular Volume 95.4 fL (80-98); PLT CLUMP 1; Red Blood Count 3.05 X10*6/uL (4.20-5.50); Red Cell Distribution Width 18.4 % (11.0-16.0); SCAN SMEAR FLAG 1
[2020-11-27 06:51] LABS: Eosinophils Percent Auto 0.4 % (0-4); Imm Gran Abs Auto 0.01 X10*3/uL (0.00-0.03); Imm Gran Pct Auto 0.2 % (0.0-0.4); Lymphocytes Percent Auto 64.1 % (20-40); Mean Platelet Volume 10.6 fL (9.4-12.3); Monocytes Absolute Auto 0.2 X10*3/uL (0.1-1.2); Monocytes Percent Auto 4.1 % (2-11); Neutrophils Absolute Auto 1.4 X10*3/uL (2.0-8.3); White Blood Count 4.6 X10*3/uL (4.8-10.8)
--- NOTE | 2020-11-27 07:07 | PC.NURSE ---
Patient's POC 66 at 0400, pt A&O x3 and drank 4oz OJ. At 0600, rechecked of POC 57 - pt given 4oz OJ, Dr. Steven notified and ordered D50. Med administered. Will recheck POC.
[2020-11-27 07:11] LABS: Platelet Count 32 X10*3/uL (160-400)
[2020-11-27 07:35] LABS: Alanine Aminotransferase 406 U/L (0-31); Albumin Level 2.5 g/dL (3.5-5.0); Alkaline Phosphatase 241 U/L (39-117); Anion Gap 13 (12-20); Aspartate Amino Transferase 472 U/L (5-31); Bilirubin Total 0.7 mg/dL (0.0-1.0); Blood Urea Nitrogen 27 mg/dL (9-16); Calcium 7.8 mg/dL (8.4-10.2); Carbon Dioxide 20 mmol/L (22-29); Chloride 112 mmol/L (96-108); Creatinine Clr Calc Pharmacy 58.1; Estimated Glomerular Filt Rate > 60; Glucose Random 65 mg/dL (60-115); Potassium 4.2 mmol/l (3.3-5.1); Sodium 141 mmol/L (135-145); Total Protein 4.6 g/dL (6.5-8.0)
[2020-11-27 07:39] LABS: Glucose, Whole Blood 142 mg/dL (60-115)
[2020-11-27 07:51] VITALS: BP 131/60; PULSE 51; RESP 20; TEMP 36.7; O2SAT 93
[2020-11-27 08:31] LABS: SLIDE REVIEW VERIFIED
[2020-11-27 08:54] LABS: Iron 125 mcg/dL (30-160); Percent Iron Saturation 54 % (15-50); Total Iron Binding Capacity 232 mcg/dL (228-428); Unsaturated Iron Binding 107 ug/dL
[2020-11-27] MEDS: Doxycycline Hyclate 100 MG in 0.9 % Sodium Chloride 250 ML 166.67 MG IV ×2 (09:37→22:03)
[2020-11-27] MEDS: 0.9 % Sodium Chloride Flush 3 ML SYRINGE IVFLUSH ×3 (09:40→22:04)
[2020-11-27] MEDS: Levothyroxine Sodium 100 MCG VIAL 50 MCG IVPUSH (09:41)
[2020-11-27 09:51] LABS: Ferritin 589 ng/mL (10-250)
[2020-11-27 10:11] LABS: Folate 15.5 ng/mL (> or = 4.0); Vitamin B12 1694 pg/mL (200-900)
--- NOTE | 2020-11-27 10:49 | HO.PM.IMPN ---
Subjective Subjective Date of Service: 11/27/20 Interval History: weak Cardiovascular Cardiovascular: Reports no additional cardiovascular complaints Respiratory Respiratory: Reports no additional respiratory complaints Physical Exam Vital Signs: Vital Signs: Last Vital Signs Temp 98.0 F 11/27/20 07:51 Pulse 51 11/27/20 07:51 Resp 20 11/27/20 07:51 BP 131/60 11/27/20 07:51 Pulse Ox 93 11/27/20 07:51 Body Mass Index 22.6 General: AO X 3, cachexic Resp: CTA bilateral CVS: S1,S2,RRR GI: soft, non tender, non distended Neuro: motor grossly intact Psych: appropriate affect Objective Data Current Medications Generic Name Dose Route Start Last Admin Trade Name Freq PRN Reason Stop Dose Admin Hydromorphone HCl 0.5 mg 11/24/20 14:55 11/25/20 00:50 Hydromorphone Hcl 0.5 Mg/0.5 Ml Syringe IVPUSH 0.5 mg Q4H PRN Administration Breakthrough Pain Doxycycline Hyclate 100 mg/ 250 mls @ 166.67 mls/hr 11/24/20 10:00 11/27/20 09:37 Sodium Chloride IV 166.67 mls/hr Q12H ROMMEL Administration Levothyroxine Sodium 88 mcg 11/28/20 06:30 Levothyroxine Sodium 88 Mcg Tablet PO DAILY@0630 [facility] Methylprednisolone Sodium Succinate 40 mg 11/27/20 10:00 11/27/20 09:59 Methylprednisolone Sod Succ/Pf 40 Mg/Ml Vial IVPUSH 40 mg Q24H ROMMEL Administration Sodium Chloride 3 ml 11/23/20 16:00 11/27/20 09:40 0.9 % Sodium Chloride Flush 3 Ml Syringe IVFLUSH 3 ml QSHIFT ROMMEL Administration Labs CBC & Chem 7: 11/27/20 06:00 11/27/20 06:00 Microbiology Microbiology Results: Microbiology 11/23/20 11:31 Blood - Venous Blood Culture - Preliminary No growth after 48 hours. 11/23/20 11:31 Blood - Venous Blood Culture - Preliminary No growth after 48 hours. 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 Was transfused platelets and red blood cells, given IV Synthroid, steroids, given nutrition. Mental status returned to baseline, temperature returned to normal. Downgraded to medical floor Metabolic encephalopathy complicated by hypothermia, hypertension Multifactorial due to advanced CLL with pancytopenia and hemolytic anemia as well as anorexia and moderate protein calorie malnutrition Continue steroids Nutrition PT eval Hypothyroid Synthroid
--- NOTE | 2020-11-27 11:09 | MHC.CLN ---
F/U PO INTAKE 100% AT DINNER YESTERDAY DIET RX: GROUND WITH NT LIQ-APPROPRIATE S/P MBS TPN D/C WILL START ENSURE BID TO INCREASE KCALS FOLLOWING
[2020-11-27 11:48] LABS: Glucose, Whole Blood 51 mg/dL (60-115)
[2020-11-27 11:59] VITALS: BP 135/57; PULSE 50; RESP 20; TEMP 36.2; O2SAT 98
[2020-11-27 12:26] LABS: Glucose, Whole Blood 61 mg/dL (60-115)
--- NOTE | 2020-11-27 13:05 | P.CNHO_ITS ---
Subjective - Subjective Primary Care Provider: Unknown Physician [facility] Medical History: Medical History (Last Updated 11/26/20 @ 13:33 by Lazaro Mcbride MD) Anorexia CLL (chronic lymphocytic leukemia) Failure to thrive Hypothyroid Family History: Family History (Last Updated 11/26/20 @ 12:26 by Rehana Goldstein MD) Sister Anorexia nervosa Smoking status: Unknown if ever smoked Home Medications and Allergies Current Medications: Current Medications Generic Name Dose Route Start Last Admin Trade Name Freq PRN Reason Stop Dose Admin Hydromorphone HCl 0.5 mg 11/24/20 14:55 11/25/20 00:50 Hydromorphone Hcl 0.5 Mg/0.5 Ml Syringe IVPUSH 0.5 mg Q4H PRN Administration Breakthrough Pain Doxycycline Hyclate 100 mg/ 250 mls @ 166.67 mls/hr 11/24/20 10:00 11/27/20 11:07 Sodium Chloride IV Infused Q12H ROMMEL Infusion Levothyroxine Sodium 88 mcg 11/28/20 06:30 Levothyroxine Sodium 88 Mcg Tablet PO DAILY@0630 [facility] Methylprednisolone Sodium Succinate 40 mg 11/27/20 10:00 11/27/20 09:59 Methylprednisolone Sod Succ/Pf 40 Mg/Ml Vial IVPUSH 40 mg Q24H ROMMEL Administration Sodium Chloride 3 ml 11/23/20 16:00 11/27/20 09:40 0.9 % Sodium Chloride Flush 3 Ml Syringe IVFLUSH 3 ml QSHIFT ROMMEL Administration Home Medications Medication Instructions Recorded Confirmed Type cholecalciferol (vitamin D3) 25 mcg PO DAILY 11/27/20 11/27/20 History [Vitamin D3] levothyroxine 88 mcg PO DAILY@0630 11/27/20 11/27/20 History multivitamin 1 tab PO DAILY 11/27/20 11/27/20 History sodium chloride 1 g PO DAILY 11/27/20 11/27/20 History Allergies Allergy/AdvReac Type Severity Reaction Status Date / Time No Known Allergies Allergy Verified 11/23/20 10:26 Physical Exam Vital signs: Vital Signs Temp 97.2 F 11/27/20 11:59 Pulse 50 11/27/20 11:59 Resp 20 11/27/20 11:59 BP 135/57 L 11/27/20 11:59 Pulse Ox 98 11/27/20 11:59 Intake & Output 11/26/20 11/27/20 11/27/20 18:59 06:59 18:59 Intake Total 3013 / 3473 460 / 3473 250 / 250 Output Total 960 / 1610 650 / 1610 Balance 205 / 1863 -190 / 1863 250 / 250 Urine Output (Average ml/kg/hr) 1.50 1.03 1.03 Intake: Intake, Oral Amount 210 / 210 Intake (Blood Product) Amount 350 / 350 Red Blood Cells (E0382) Unit 350 / 350 [id number] Intake, IV Amount 2663 / 2913 250 / 2913 250 / 250 Doxycycline Hyclate 100 mg In 0 250 / 500 250 / 500 250 / 250 .9 % Sodium Chloride 250 ml @ 166.67 mls/hr IV Q12H [facility] Rx#: [id number] AA 5 %/Calcium/Lytes/Dext 15 % 1423 / 1423 2,000 ml @ 60 mls/hr IV DAILY@ 1800 ROMMEL with MVI, Adult 14 ml with Trace Elements w/o chromium 1.4 ml Rx#:[id number] Potassium Phosphate 30 mmol In 510 / 510 0.9 % Sodium Chloride 500 ml @ 85 mls/hr IV ONCE ONE Rx#: [id number] vancomycin HCL 750 mg In 0.9 % 265 / 265 Sodium Chloride 250 ml @ 270 mls/hr IV Q12H [facility] Rx#: [id number] 0.9 % Sodium Chloride 1,000 ml 215 / 215 @ 60 mls/hr IVCONT .[id number] [facility] Rx#:[id number] Output: Output, Urine Amount 750 / 750 Output, Urine Amount (Catheter) 210 / 860 650 / 860 Urethral 210 / 860 650 / 860 Other: Dinner % Eaten 100% Urine Bathroom Urine Color Yellow Stool Bedside Commode Stool Amount Large Stool Color Brown Stool Consistency Soft Weight 53.5 kg 52.6 kg Weight 52.6 kg Hem/Onc Consult Result - Labs CBC & Chem 7: 11/27/20 06:00 11/27/20 06:00 Labs: Short CBC 11/27/20 Range/Units 06:00 WBC 4.6 L (4.8-10.8) X10*3/uL Hgb 9.5 L D (12.0-16.0) g/dl Hct 29.1 L D (37-47) % Plt Count 32 L (160-400) X10*3/uL BMP 11/27/20 06:00 Sodium 141 Potassium 4.2 Chloride 112 H Carbon Dioxide 20 L BUN 27 H Creatinine 0.60 Calcium 7.8 L Liver Function 11/27/20 Range/Units 06:00 Total Bilirubin 0.7 (0.0-1.0) mg/dL AST 472 H (5-31) U/L ALT 406 H (0-31) U/L Alkaline Phosphatase 241 H (39-117) U/L Albumin 2.5 L (3.5-5.0) g/dL Assessment and Plan (1) Chronic lymphocytic leukemia Status: Chronic 1. This is a 75-year-old woman with significant past history of CLL and anorexia nervosa presenting with worsening anemia and thrombocytopenia. 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 She has been under the care of an oncologist at [facility] for over 10 years. She has not needed treatment for her CLL thus far. She says she was never diagnosed with lymphadenopathy or anemia. Some of her chronic medical issues appear to have been worsened by her longstanding anorexia nervosa and she was contemplating inpatient treatment for this but she was denied admission at a psychiatric facility because of her cytopenias and CLL. She does not have lymphadenopathy or hepatosplenomegaly. She appears to have hemolytic anemia as well as autoimmune thrombocytopenia. She does not have coag ulopathy to suggest DIC. LDH and Clay test pending. Her kidney functions are stable. I have recommended steroids, Solu-Medrol 40 mg IV daily for her anemia and thrombocytopenia which could be related to underlying CLL. This is an indication for her to be started on treatment for CLL. This can be done upon discharge with her own oncologist. I also recommend Blood transfusion to keep hemoglobin around 8 gram/dL. I thank you very much for this consultation, will follow with you.
--- NOTE | 2020-11-27 14:50 | MHC.CM.PN ---
spoke with son alvarado [phone] we discussedf possible dc plans explained that physical therapy has been consulted and we await the outcome if its str he prefers to stay in this area if possible will update gato stubbs npt eval complete,
--- NOTE | 2020-11-27 14:58 | P.PNHO_ITS ---
Medical Summary - Medical Summary Date of Service: 11/27/20 Home Medications and Allergies Current Medications: Current Medications Generic Name Dose Route Start Last Admin Trade Name Pushpa PRN Reason Stop Dose Admin Hydromorphone HCl 0.5 mg 11/24/20 14:55 11/25/20 00:50 Hydromorphone Hcl 0.5 Mg/0.5 Ml Syringe IVPUSH 0.5 mg Q4H PRN Administration Breakthrough Pain Doxycycline Hyclate 100 mg/ 250 mls @ 166.67 mls/hr 11/24/20 10:00 11/27/20 11:07 Sodium Chloride IV Infused Q12H [facility] Infusion Levothyroxine Sodium 88 mcg 11/28/20 06:30 Levothyroxine Sodium 88 Mcg Tablet PO DAILY@0630 [facility] Methylprednisolone Sodium Succinate 40 mg 11/27/20 10:00 11/27/20 09:59 Methylprednisolone Sod Succ/Pf 40 Mg/Ml Vial IVPUSH 40 mg Q24H ROMMEL Administration Sodium Chloride 3 ml 11/23/20 16:00 11/27/20 09:40 0.9 % Sodium Chloride Flush 3 Ml Syringe IVFLUSH 3 ml QSHIFT ROMMEL Administration Home Medications Medication Instructions Recorded Confirmed Type cholecalciferol (vitamin D3) 25 mcg PO DAILY 11/27/20 11/27/20 History [Vitamin D3] levothyroxine 88 mcg PO DAILY@0630 11/27/20 11/27/20 History multivitamin 1 tab PO DAILY 11/27/20 11/27/20 History sodium chloride 1 g PO DAILY 11/27/20 11/27/20 History Allergies Allergy/AdvReac Type Severity Reaction Status Date / Time No Known Allergies Allergy Verified 11/23/20 10:26 Exam Vital signs: Vital Signs Temp 97.2 F 11/27/20 11:59 Pulse 50 11/27/20 11:59 Resp 20 11/27/20 11:59 BP 135/57 L 11/27/20 11:59 Pulse Ox 98 11/27/20 11:59 Intake & Output 11/26/20 11/27/20 11/27/20 18:59 06:59 18:59 Intake Total 3013 / 3473 460 / 3473 250 / 250 Output Total 960 / 1610 650 / 1610 250 / 250 Balance 2052 / 1863 -190 / 1862 0 / 0 Urine Output (Average ml/kg/hr) 1.50 1.03 0.40 Intake: Intake, Oral Amount 210 / 210 Intake (Blood Product) Amount 350 / 350 Red Blood Cells (E0382) Unit 350 / 350 [id number] Intake, IV Amount 2663 / 2913 250 / 2913 250 / 250 Doxycycline Hyclate 100 mg In 0 250 / 500 250 / 500 250 / 250 .9 % Sodium Chloride 250 ml @ 166.67 mls/hr IV Q12H [facility] Rx#: [id number] AA 5 %/Calcium/Lytes/Dext 15 % 1423 / 1423 2,000 ml @ 60 mls/hr IV DAILY@ 1800 ROMMEL with MVI, Adult 14 ml with Trace Elements w/o chromium 1.4 ml Rx#:[id number] Potassium Phosphate 30 mmol In 510 / 510 0.9 % Sodium Chloride 500 ml @ 85 mls/hr IV ONCE ONE Rx#: [id number] vancomycin HCL 750 mg In 0.9 % 265 / 265 Sodium Chloride 250 ml @ 270 mls/hr IV Q12H [facility] Rx#: [id number] 0.9 % Sodium Chloride 1,000 ml 215 / 215 @ 60 mls/hr IVCONT .[id number] [facility] Rx#:[id number] Output: Output, Urine Amount 750 / 750 250 / 250 Output, Urine Amount (Catheter) 210 / 860 650 / 860 Urethral 210 / 860 650 / 860 Other: Breakfast % Eaten 100% Lunch % Eaten 100% Dinner % Eaten 100% Number of Incontinent Voids 1 Urine Bathroom Urine Color Yellow Stool Bedside Commode Stool Amount Large Stool Color Brown Stool Consistency Soft Weight 53.5 kg 52.6 kg Weight 52.6 kg Body Mass Index 22.6 - Constitutional Present: mild distress - Routine HEENT Exam Head: Present: normal inspection - Routine Respiratory Exam Absent: rhonchi, wheezes - Routine Cardiovascular Exam Cardiovascular: Present: S1, S2 - Routine Abdominal Exam Present: distended, hypoactive bowel sounds - Routine Extremities Exam Present: pedal edema - Routine Skin Exam Present: ecchymosis Data - Labs CBC & Chem 7: 11/27/20 06:00 11/27/20 06:00 Labs: 11/23/20 XR chest 1V Stat 11/23/20 10:00 Glucose, Whole Blood Routine 11/23/20 10:26 ECG 12 lead EKG Stat EKG Documentation DIRECTED XR chest 1V Stat 11/23/20 10:27 CT head/brain wo con Stat 11/23/20 10:29 0.9 % Sodium Chloride [Ns] 500 ml IVCONT 999 mls/hr 11/23/20 10:30 Straight Urinary Catheterization .Now CT abdomen pelvis wo con Stat 11/23/20 10:36 Complete Blood Count Auto Diff Stat Free T4 (Free Thyroxine) Stat Lactic Acid Stat Lipase Stat Magnesium Stat Phosphorus Stat SLIDE REVIEW Stat TSH reflex Free T4 Stat Triglycerides Stat Troponin-I High Sensitivity Stat 11/23/20 10:37 Basic Metabolic Panel Stat Liver Panel Stat 11/23/20 11:24 Glucose, Whole Blood Routine 11/23/20 12:13 Glucose, blood poc .Now 11/23/20 12:15 Dextrose 5 % and 0.9 % NaCl [D5ns] 1,000 ml IVCONT 125 mls/hr 11/23/20 12:33 US abdomen limited Stat 11/23/20 12:46 0.9 % Sodium Chloride [Ns] 1,000 ml IVCONT 999 mls/hr 11/23/20 12:51 ondansetron HCL [Zofran] 4 mg .ROUTE .STK-MED ONE 11/23/20 12:52 Pheresis Platelets Stat Red Blood Cells Stat Type and Screen Stat 11/23/20 12:58 ondansetron HCL [Zofran] 4 mg IVPUSH ONCE ONE 11/23/20 13:03 Prochlorperazine Edisylate [Compazine] 10 mg IVPUSH ONCE ONE 11/23/20 13:24 ondansetron HCL [Zofran] 4 mg IVPUSH ONCE ONE 11/23/20 13:32 Norepinephrine Bitartrate/NS [Levophed] 8 mg in 250 ml IVCONT As directed 11/23/20 13:38 Glucose, Whole Blood Routine 11/23/20 13:45 Norepinephrine Bitartrate/NS [Levophed] 8 mg in 250 ml IVCONT Per Protocol mcg/kg/min 11/23/20 14:07 cefEPime HCl [Maxipime] 2 gm 0.9 % Sodium Chloride [Ns] 50 ml IV ONCE 11/23/20 14:09 SARS-CoV2/FLU/RSV Stat Venous Blood Gas Stat 11/23/20 14:16 cefEPime HCl [Maxipime] 2 gm IV .STK-MED ONE 11/23/20 15:00 Add Laboratory Test Stat 11/23/20 15:19 Vital Signs Q4HR 11/23/20 15:30 0.9 % Sodium Chloride [Ns] 1,000 ml IVCONT 60 mls/hr Norepinephrine Bitartrate/NS [Levophed] 8 mg in 250 ml IVCONT Per Protocol mcg/kg/min 11/23/20 15:44 Glucose, Whole Blood Routine 11/23/20 15:52 Cortisol Stat Hydrocortisone Sod Succ/PF [SOLU-Cortef] 100 mg 0.9 % Sodium Chloride [Ns] 100 ml IV ONCE Levothyroxine Sodium [Synthroid] 37.5 mcg IVPUSH ONCE ONE 11/23/20 16:58 Measure CVP QSHIFT 11/23/20 17:01 Meropenem 1 gm 0.9 % Sodium Chloride [Ns] 100 ml IV ONCE vancomycin HCL 1,000 mg 0.9 % Sodium Chloride [Ns] 250 ml IV ONCE 11/23/20 17:11 Levothyroxine Sodium [Synthroid] 12.5 mcg IVPUSH ONCE ONE 11/23/20 17:14 Haptoglobin Stat Lactate Dehydrogenase Stat Reticulocyte Count Stat 11/23/20 17:33 Hydrocortisone Sod Succ/PF [SOLU-Cortef] 100 mg .ROUTE .STK-MED ONE Meropenem 1 gm IV .STK-MED ONE vancomycin HCL 1,000 mg .ROUTE .STK-MED ONE 11/23/20 18:00 MVI, Adult [Infuvite Adult] 10 ml Trace Elements w/o chromium [Tralement] 1 ml AA 5 %/Calcium/Lytes/Dext 15 % [Clinimix E 5%-15%] 1,000 ml IV DAILY@1800 11/23/20 18:02 Glucose, Whole Blood Routine 11/23/20 20:00 Imm Glob G (IgG)/Sorb/IGA 0-50 [Flebogamma 10%] 5 gm in 50 ml IV ONCE Imm Glob G (IgG)/Sorb/IGA 0-50 [Flebogamma 10%] 10 gm in 100 ml IV ONCE 11/23/20 21:57 Complete Blood Count Auto Diff Stat SLIDE REVIEW Stat 11/24/20 00:07 Glucose, Whole Blood Routine 11/24/20 03:50 Glucose, Whole Blood Routine 11/24/20 05:15 Basic Metabolic Panel Routine Complete Blood Count Auto Diff Routine Lipase Routine Magnesium Routine Phosphorus Routine Venous Blood Gas Routine 11/24/20 08:15 Glucose, Whole Blood Routine 11/24/20 09:19 Liver Panel Routine Malaria Babesia Smear Stat 11/24/20 10:19 Doxycycline Hyclate [Vibramycin] 100 mg IV .STK-MED ONE 11/24/20 13:08 Glucose, Whole Blood Routine 11/24/20 14:53 Consult Rx Vancomycin Dosing 1 each MISCELLANE DAILY PRN 11/24/20 15:00 Hydrocortisone Sod Succ/PF [SOLU-Cortef] 50 mg 0.9 % Sodium Chloride [Ns] 50 ml IV Q12H Piperacillin Sodium/Tazobactam [Zosyn] 3.375 gm 0.9 % Sodium Chloride [Ns] 50 ml IV Q6H 11/24/20 15:15 Hydrocortisone Sod Succ/PF [SOLU-Cortef] 50 mg IVPUSH Q12H 11/24/20 15:30 Piperacillin Sodium/Tazobactam [Zosyn] 3.375 gm IV .STK-MED ONE vancomycin HCL 750 mg IV .STK-MED ONE 11/24/20 16:00 vancomycin HCL 750 mg 0.9 % Sodium Chloride [Ns] 250 ml IV Q12H 11/24/20 16:15 Levothyroxine Sodium [Synthroid] 50 mcg IVPUSH DAILY 11/24/20 17:55 Glucose, Whole Blood Routine 11/24/20 18:00 MVI, Adult [Infuvite Adult] 14 ml Trace Elements w/o chromium [Tralement] 1.4 ml AA 5 %/Calcium/Lytes/Dext 15 % [Clinimix E 5%-15%] 2,000 ml IV DAILY@1800 11/24/20 20:21 Piperacillin Sodium/Tazobactam [Zosyn] 3.375 gm IV .STK-MED ONE 11/24/20 22:49 Doxycycline Hyclate [Vibramycin] 100 mg IV .STK-MED ONE 11/24/20 23:26 Glucose, Whole Blood Routine 11/25/20 03:17 Piperacillin Sodium/Tazobactam [Zosyn] 3.375 gm IV .STK-MED ONE 11/25/20 04:07 vancomycin HCL 750 mg IV .STK-MED ONE 11/25/20 05:30 Complete Blood Count Auto Diff Routine Comprehensive Met. Panel Routine Lipase Routine Magnesium Routine Phosphorus Routine SLIDE REVIEW Routine Venous Blood Gas Routine 11/25/20 05:58 Glucose, Whole Blood Routine 11/25/20 07:33 Add Laboratory Test Urgent 11/25/20 08:38 Piperacillin Sodium/Tazobactam [Zosyn] 3.375 gm IV .STK-MED ONE 11/25/20 10:18 Doxycycline Hyclate [Vibramycin] 100 mg IV .STK-MED ONE 11/25/20 12:20 Glucose, Whole Blood Routine 11/25/20 15:55 Piperacillin Sodium/Tazobactam [Zosyn] 3.375 gm IV .STK-MED ONE vancomycin HCL 750 mg IV .ST-MED ONE 11/25/20 18:00 MVI, Adult [Infuvite Adult] 14 ml Trace Elements w/o chromium [Tralement] 1.4 ml AA 5 %/Calcium/Lytes/Dext 15 % [Clinimix E 5%-15%] 2,000 ml IV DAILY@1800 11/25/20 18:11 Glucose, Whole Blood Routine 11/25/20 19:52 Piperacillin Sodium/Tazobactam [Zosyn] 3.375 gm IV .STK-MED ONE 11/25/20 21:42 Doxycycline Hyclate [Vibramycin] 100 mg IV .STK-MED ONE 11/25/20 23:41 Glucose, Whole Blood Routine 11/26/20 02:39 Piperacillin Sodium/Tazobactam [Zosyn] 3.375 gm IV .STK-MED ONE 11/26/20 03:08 Vancomycin Trough Routine 11/26/20 04:40 vancomycin HCL 750 mg IV .STK-MED ONE 11/26/20 05:10 Complete Blood Count Auto Diff DAILY@0600 Comprehensive Met. Panel DAILY@0600 Lipase Routine Magnesium DAILY@0600 Phosphorus DAILY@0600 SLIDE REVIEW Routine 11/26/20 05:12 Venous Blood Gas DAILY@0600 11/26/20 05:49 Rocuronium [place] [Zemuron] 35 mg IVPUSH ONCE ONE 11/26/20 09:01 Transfer Order Routine 11/26/20 10:17 Potassium Phosphate [KPhos] 30 mmol 0.9 % Sodium Chloride [Ns] 500 ml IV ONCE 11/26/20 10:52 Doxycycline Hyclate [Vibramycin] 100 mg IV .STK-MED ONE 11/26/20 12:11 Glucose, Whole Blood Routine 11/26/20 13:24 Direct Clay (BOLIVAR) Routine Fibrinogen Urgent Partial Thromboplastin Time Urgent Prothrombin Time INR Urgent 11/26/20 13:43 Compression Therapy QSHIFT 11/26/20 14:45 FL barium swallow modified Routine 11/26/20 Lunch NPO Pending Swallow Eval Diet 11/26/20 18:03 Glucose, Whole Blood Routine 11/26/20 19:30 Lactate Dehydrogenase Routine 11/26/20 22:18 Doxycycline Hyclate [Vibramycin] 100 mg IV .K-MED ONE 11/27/20 03:38 Glucose, Whole Blood Routine 11/27/20 06:00 Complete Blood Count Auto Diff DAILY@0600 Comprehensive Met. Panel DAILY@0600 Ferritin Routine IRON PROFILE Routine SLIDE REVIEW Routine Vitamin B12 and Folate Routine 11/27/20 06:19 Glucose, Whole Blood Routine 11/27/20 06:38 Dextrose 50 % [D50] 25 gm IVPUSH ONCE ONE 11/27/20 07:19 Glucose, Whole Blood Routine 11/27/20 08:21 Add Laboratory Test Urgent 11/27/20 09:00 methylPREDNISolone Sod Succ/PF [SOLU-MedroL] 40 mg 0.9 % Sodium Chloride [Ns] 100 ml IV DAILY 11/27/20 09:04 Doxycycline Hyclate [Vibramycin] 100 mg IV .[facility] ONE methylPREDNISolone Sod Succ/PF [SOLU-MedroL] 125 mg .ROUTE .[facility]-MED ONE 11/27/20 11:10 Glucose, Whole Blood Routine 11/27/20 12:23 Glucose, Whole Blood Routine Laboratory Last Values WBC 4.6 X10*3/uL (4.8-10.8) L 11/27/20 06:00 RBC 3.05 X10*6/uL (4.20-5.50) L D 11/27/20 06:00 Hgb 9.5 g/dl (12.0-16.0) L D 11/27/20 06:00 Hct 29.1 % (37-47) L D 11/27/20 06:00 MCV 95.4 fL (80-98) 11/27/20 06:00 MCH 31.1 pg (27.0-33.0) 11/27/20 06:00 MCHC 32.6 g/dl (31.0-35.0) 11/27/20 06:00 RDW 18.4 % (11.0-16.0) H 11/27/20 06:00 Plt Count 32 X10*3/uL (160-400) L 11/27/20 06:00 MPV 10.6 fL (9.4-12.3) 11/27/20 06:00 Immature Gran % (Auto) 0.2 % (0.0-0.4) 11/27/20 06:00 Neut % (Auto) 31.0 % (45-73) L 11/27/20 06:00 Lymph % (Auto) 64.1 % (20-40) H 11/27/20 06:00 [place] % (Auto) 4.1 % (2-11) 11/27/20 06:00 Eos % (Auto) 0.4 % (0-4) 11/27/20 06:00 Baso % (Auto) 0.2 % (0-2) 11/27/20 06:00 Lymph # (Auto) 3.0 X10*3/uL (1.2-4.9) 11/27/20 06:00 [place] # (Auto) 0.2 X10*3/uL (0.1-1.2) 11/27/20 06:00 Eos # (Auto) 0.0 X10*3/uL (0.0-0.4) 11/27/20 06:00 Baso # (Auto) 0.0 X10*3/uL (0.0-0.2) 11/27/20 06:00 Abs Immat Gran (auto) 0.01 X10*3/uL (0.00-0.03) 11/27/20 06:00 Absolute Neuts (auto) 1.4 X10*3/uL (2.0-8.3) L 11/27/20 06:00 Absolute Nucleated RBC 0.000 X10*3/uL (0.0-0.012) 11/27/20 06:00 Nucleated RBC % (auto) 0.0 /100WBC (0.0-0.2) 11/27/20 06:00 Smear Tech's Comments VERIFIED 11/27/20 06:00 Smear Path Review SEE NOTE 11/23/20 10:36 Absolute Retic 0.054 X10*6/uL (0.026-0.095) 11/23/20 17:14 Percent Retic 2.2 % (0.5-1.8) H 11/23/20 17:14 Immature Retic Fraction 5.6 % (3.0-15.9) 11/23/20 17:14 Retic Hgb Equivalent 33.5 pg (30.0-35.0) 11/23/20 17:14 Haptoglobin <8 mg/dL (43-212) L 11/23/20 17:14 PT 12.7 SEC (10.8-13.0) 11/26/20 13:24 INR 1.1 (0.9-1.1) 11/26/20 13:24 APTT 31.8 SEC (24.1-38.0) 11/26/20 13:24 Fibrinogen 171 MG/DL (259-690) L 11/26/20 13:24 VBG pH 7.37 (7.32-7.43) 11/26/20 05:12 VBG pCO2 45 mmhg 11/26/20 05:12 VBG pO2 35 mmhg 11/26/20 05:12 VBG HCO3 26 mmol/L 11/26/20 05:12 VBG O2 Saturation 65.8 % 11/26/20 05:12 VBG Base Excess 0.0 mmol/L 11/26/20 05:12 Sodium 141 mmol/L (135-145) 11/27/20 06:00 Potassium 4.2 mmol/l (3.3-5.1) 11/27/20 06:00 Chloride 112 mmol/L (96-108) H 11/27/20 06:00 Carbon Dioxide 20 mmol/L (22-29) L 11/27/20 06:00 Anion Gap 13 (12-20) 11/27/20 06:00 BUN 27 mg/dL (9-16) H 11/27/20 06:00 Creatinine 0.60 mg/dL (0.5-1.4) 11/27/20 06:00 Estim Creat Clear Calc 58.1 11/27/20 06:00 Estimated GFR > 60 11/27/20 06:00 POC Glucose 61 mg/dL (60-115) 11/27/20 12:23 Random Glucose 65 mg/dL (60-115) D 11/27/20 06:00 Lactic Acid 0.5 mmol/L (0.5-2.0) 11/23/20 10:36 Calcium 7.8 mg/dL (8.4-10.2) L 11/27/20 06:00 Phosphorus 2.4 mg/dL (2.7-4.5) L 11/26/20 05:10 Magnesium 1.7 mg/dL (1.6-2.6) 11/26/20 05:10 Iron 125 mcg/dL (30-160) 11/27/20 06:00 TIBC 232 mcg/dL (228-428) 11/27/20 06:00 % Saturation 54 % (15-50) H 11/27/20 06:00 Unsat Iron Binding 107 ug/dL 11/27/20 06:00 Ferritin 589 ng/mL (10-250) H 11/27/20 06:00 Total Bilirubin 0.7 mg/dL (0.0-1.0) 11/27/20 06:00 Direct Bilirubin 0.3 mg/dL (0.0-0.5) 11/24/20 09:19 AST 472 U/L (5-31) H 11/27/20 06:00 ALT 406 U/L (0-31) H 11/27/20 06:00 Alkaline Phosphatase 241 U/L (39-117) H 11/27/20 06:00 Lactate Dehydrogenase 260 U/L (122-220) H 11/26/20 19:30 Troponin I High Sens 7.9 ng/L (<3.5-17.0) 11/23/20 10:36 Total Protein 4.6 g/dL (6.5-8.0) L 11/27/20 06:00 Albumin 2.5 g/dL (3.5-5.0) L 11/27/20 06:00 Triglycerides 25 mg/dL 11/23/20 10:36 Lipase 1024 U/L (8-78) H 11/26/20 05:10 Vitamin B12 1694 pg/mL (200-900) H 11/27/20 06:00 Folate 15.5 ng/mL (> or = 4.0) 11/27/20 06:00 TSH 7.39 mIU/mL (0.32-4.0) H 11/23/20 10:36 Free T4 1.20 ng/dL (0.71-1.85) 11/23/20 10:36 Cortisol 24.2 mcg/dL H 11/24/20 05:15 Urine Color YELLOW 11/23/20 11:29 Urine Appearance HAZY 11/23/20 11:29 Urine pH 5.5 (5.0-8.0) 11/23/20 11:29 Ur Specific [place] 1.025 (1.005-1.025) 11/23/20 11:29 Urine Protein TRACE MG/DL (NEG-TRACE) 11/23/20 11:29 Urine Glucose (UA) NEG MG/DL (NEG) 11/23/20 11:29 Urine Ketones 5 MG/DL (NEG) 11/23/20 11:29 Urine Blood TRACE (NEG) 11/23/20 11:29 Urine Nitrite NEG (NEG) 11/23/20 11:29 Ur Leukocyte Esterase NEG (NEG) 11/23/20 11:29 Urine RBC 0 /HPF (0) 11/23/20 11:29 Urine WBC 0-2 /HPF (0-4) 11/23/20 11:29 Ur Squamous Epith Cells NONE /LPF 11/23/20 11:29 Urine Bacteria NONE /LPF 11/23/20 11:29 Epithelial Casts 0-2 /LPF 11/23/20 11:29 Hyaline Casts 5-9 /LPF 11/23/20 11:29 Granular Casts 1-4 /LPF 11/23/20 11:29 Urine Mucus 2+ /LPF 11/23/20 11:29 Vancomycin Trough 5.8 mcg/mL (10.0-20.0) L 11/26/20 03:08 Babesia Smear NEGATIVE (NEGATIVE) 11/24/20 09:19 Coronavirus (PCR) NEGATIVE (Negative) 11/23/20 14:09 Influenza Type A (PCR) NEGATIVE (Negative) 11/23/20 14:09 Influenza Type B (PCR) NEGATIVE (Negative) 11/23/20 14:09 Malaria Smear NEGATIVE (NEGATIVE) 11/24/20 09:19 RSV RNA Qual (PCR) NEGATIVE (Negative) 11/23/20 14:09 Blood Type A Negative 11/23/20 12:52 Antibody Screen NEGATIVE 11/23/20 12:52 Direct Antiglob Test TNP 11/26/20 13:24 BOLIVAR, Polyspecific NEGATIVE 11/26/20 13:24 Crossmatch See Detail 11/23/20 12:52 - Imaging Radiologist's impression: ITS Impressions Chest X-Ray 11/23/20 00:00 IMPRESSION: Right internal jugular central venous catheter terminates at the superior cavoatrial junction. No pneumothorax. Stable trace bilateral pleural effusions. Chest X-Ray 11/23/20 10:26 IMPRESSION: No evidence of acute pneumonitis or parenchymal consolidation. Nonspecific nodular opacity at the medial right lung base. Head CT 11/23/20 10:27 IMPRESSION: CT HEAD: * No acute intracranial pathology. * White matter small vessel ischemic changes. CT ABDOMEN/PELVIS: * Markedly limited exam due to anasarca and lack of intravenous contrast. * No evidence of bowel obstruction. * Moderate to severe constipation. * Small volume ascites. * No source of infection within the abdomen or pelvis. Abdomen/Pelvis CT 11/23/20 10:30 IMPRESSION: CT HEAD: * No acute intracranial pathology. * White matter small vessel ischemic changes. CT ABDOMEN/PELVIS: * Markedly limited exam due to anasarca and lack of intravenous contrast. * No evidence of bowel obstruction. * Moderate to severe constipation. * Small volume ascites. * No source of infection within the abdomen or pelvis. Abdomen Ultrasound 11/23/20 12:33 IMPRESSION: Limited imaging. No gross abnormalities above. Nonspecific intrinsic liver disease suspected. No biliary dilatation. Modified Barium Swallow 11/26/20 14:45 IMPRESSION: Slight delay in the oral phase but no obstruction. Trace laryngeal penetration seen on initial exam but no laryngeal aspiration seen. 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
[2020-11-27 15:10] VITALS: BP 114/59; PULSE 52; RESP 20; TEMP 36.8; O2SAT 93
[2020-11-27 16:32] LABS: Babesia IgG <1:64 titer (<1:64); Babesia IgM <1:20 titer (<1:20)
[2020-11-27 16:45] LABS: Glucose, Whole Blood 68 mg/dL (60-115)
[2020-11-27 18:17] LABS: Glucose, Whole Blood 71 mg/dL (60-115)
--- NOTE | 2020-11-27 18:41 | PC.NURSE ---
Pt able to make needs known. Repo's self, up to commode with steady gait. Pt eating more, stating she feel's better. Pt agreeable to nutritional supplement. PT in to see pt, ambulated to bathroom. Leo Monroy called and given update, would like to speak to hospitalist or oncologist within a couple days, will pass on to next nurse.
[2020-11-27 20:00] VITALS: BP 108/58; PULSE 103; RESP 18; TEMP 36.4; O2SAT 94
[2020-11-27 20:56] LABS: Glucose, Whole Blood 83 mg/dL (60-115)
[2020-11-27 23:41] VITALS: BP 109/56; PULSE 58; RESP 18; TEMP 37; O2SAT 98
[2020-11-27 23:52] LABS: Glucose, Whole Blood 74 mg/dL (60-115)
[2020-11-28 02:19] LABS: Glucose, Whole Blood 76 mg/dL (60-115)
[2020-11-28 04:00] VITALS: BP 119/72; PULSE 62; RESP 18; TEMP 36.4; O2SAT 94
[2020-11-28 04:20] LABS: Glucose, Whole Blood 131 mg/dL (60-115)
[2020-11-28] MEDS: Levothyroxine Sodium 88 MCG TABLET PO (05:36)
[2020-11-28 05:40] VITALS: BMI 23.1
[2020-11-28 05:46] LABS: Eosinophils Percent Auto 0.2 % (0-4); Hemoglobin 8.7 g/dl (12.0-16.0); MANUAL DIFF FLAG SCAN; Mean Corpuscular Hemoglobin 31.2 pg (27.0-33.0); PLT CLUMP 1; Red Blood Count 2.79 X10*6/uL (4.20-5.50); SCAN SMEAR FLAG 1
[2020-11-28 05:48] LABS: Hematocrit 26.2 % (37-47); Lymphocytes Absolute Auto 3.7 X10*3/uL (1.2-4.9); Lymphocytes Percent Auto 64.3 % (20-40); Mean Corpuscular HGB Conc 33.2 g/dl (31.0-35.0); Mean Corpuscular Volume 93.9 fL (80-98); Mean Platelet Volume 10.8 fL (9.4-12.3); Monocytes Absolute Auto 0.3 X10*3/uL (0.1-1.2); Neutrophils Absolute Auto 1.8 X10*3/uL (2.0-8.3); Neutrophils Percent Auto 30.5 % (45-73); Red Cell Distribution Width 17.5 % (11.0-16.0); White Blood Count 5.8 X10*3/uL (4.8-10.8)
[2020-11-28 06:06] LABS: Anion Gap 11 (12-20); Blood Urea Nitrogen 28 mg/dL (9-16); Carbon Dioxide 23 mmol/L (22-29); Chloride 111 mmol/L (96-108); Creatinine Clr Calc Pharmacy 56.3; Estimated Glomerular Filt Rate > 60; Glucose Fasting 103 mg/dL (60-99); Potassium 4.2 mmol/l (3.3-5.1); Sodium 141 mmol/L (135-145)
[2020-11-28 06:08] LABS: Platelet Count 39 X10*3/uL (160-400); SLIDE REVIEW VERIFIED
[2020-11-28 07:29] VITALS: BP 123/64; PULSE 66; RESP 18; TEMP 36.4; O2SAT 95
[2020-11-28] MEDS: 0.9 % Sodium Chloride Flush 3 ML SYRINGE IVFLUSH ×3 (07:46→21:54)
[2020-11-28 07:47] LABS: Glucose, Whole Blood 69 mg/dL (60-115)
[2020-11-28] MEDS: Doxycycline Hyclate 100 MG in 0.9 % Sodium Chloride 250 ML 166.67 MG IV ×2 (10:32→21:51)
--- NOTE | 2020-11-28 11:05 | P.PNHO_ITS ---
Medical Summary - Medical Summary Date of Service: 11/28/20 Chief complaint: Weakness Interval History Interval history: Patient is feeling better today. She denies any chest pain or shortness of breath. She would like to go back to hers son's house rather than rehabilitation place and do physical therapy at home. Review of Systems - Constitutional Reports body aches, Reports fatigue, Reports lack of energy, Reports weakness PMFSH Medical History: Medical History (Last Updated 11/28/20 @ 11:07 by Rehana Goldstein MD) Anorexia CLL (chronic lymphocytic leukemia) Failure to thrive Hypogammaglobulinemia Hypothyroid Thrombocytopenia Family History: Family History (Last Updated 11/26/20 @ 12:26 by Rehana Goldstein MD) Sister Anorexia nervosa Smoking status: Unknown if ever smoked Oncology Screenings - ECOG Performance Status ECOG Performance Status: 3 Home Medications and Allergies Current Medications: Current Medications Generic Name Dose Route Start Last Admin Trade Name Freq PRN Reason Stop Dose Admin Hydromorphone HCl 0.5 mg 11/24/20 14:55 11/25/20 00:50 Hydromorphone Hcl 0.5 Mg/0.5 Ml Syringe IVPUSH 0.5 mg Q4H PRN Administration Breakthrough Pain Doxycycline Hyclate 100 mg/ 250 mls @ 166.67 mls/hr 11/24/20 10:00 11/28/20 10:32 Sodium Chloride IV 166.67 mls/hr Q12H ROMMEL Administration Levothyroxine Sodium 88 mcg 11/28/20 06:30 11/28/20 05:36 Levothyroxine Sodium 88 Mcg Tablet PO 88 mcg DAILY@0630 ROMMEL Administration Methylprednisolone Sodium Succinate 40 mg 11/27/20 10:00 11/28/20 10:32 Methylprednisolone Sod Succ/Pf 40 Mg/Ml Vial IVPUSH 40 mg Q24H ROMMEL Administration Sodium Chloride 3 ml 11/23/20 16:00 11/28/20 07:46 0.9 % Sodium Chloride Flush 3 Ml Syringe IVFLUSH 3 ml QSHIFT ROMMEL Administration Home Medications Medication Instructions Recorded Confirmed Type cholecalciferol (vitamin D3) 25 mcg PO DAILY 11/27/20 11/27/20 History [Vitamin D3] levothyroxine 88 mcg PO DAILY@0630 11/27/20 11/27/20 History multivitamin 1 tab PO DAILY 11/27/20 11/27/20 History sodium chloride 1 g PO DAILY 11/27/20 11/27/20 History Allergies Allergy/AdvReac Type Severity Reaction Status Date / Time No Known Allergies Allergy Verified 11/23/20 10:26 Exam Vital signs: Vital Signs Temp 97.5 F 11/28/20 07:29 Pulse 66 11/28/20 07:29 Resp 18 11/28/20 07:29 BP 123/64 11/28/20 07:29 Pulse Ox 95 11/28/20 07:29 Intake & Output 11/27/20 11/28/20 11/28/20 18:59 06:59 18:59 Intake Total 250 / 500 250 / 500 120 / 120 Output Total 250 / 250 Balance 0 / 250 250 / 250 120 / 120 Urine Output (Average ml/kg/hr) 0.40 0.39 0.39 Intake: Intake, Oral Amount 120 / 120 Intake, IV Amount 250 / 500 250 / 500 Doxycycline Hyclate 100 mg In 0 250 / 500 250 / 500 .9 % Sodium Chloride 250 ml @ 166.67 mls/hr IV Q12H [facility] Rx#: [id number] Output: Output, Urine Amount 250 / 250 Other: Breakfast % Eaten 100% 25% Lunch % Eaten 100% Number of Incontinent Voids 1 Number of Unmeasured Voids 2 1 Number of Bowel Movements 1 Urine Bathroom Bathroom Urine Color Yellow Stool Bathroom Stool Amount Moderate Stool Color Brown Stool Consistency Soft Weight 53.8 kg Weight 53.8 kg Body Mass Index 23.1 - Constitutional Present: no acute distress, mild distress - Routine HEENT Exam Head: Present: normal inspection Eye: Present: conjunctivae pale - Routine Neck Exam Absent: lymphadenopathy - Routine Respiratory Exam Absent: rhonchi, wheezes - Routine Cardiovascular Exam Cardiovascular: Present: S1, S2 - Routine Abdominal Exam Present: distended, hypoactive bowel sounds - Routine Extremities Exam Present: pedal edema - Routine Skin Exam Present: ecchymosis Data - Labs CBC & Chem 7: 11/28/20 05:23 11/28/20 05:23 Labs: 11/23/20 XR chest 1V Stat 11/23/20 10:00 Glucose, Whole Blood Routine 11/23/20 10:26 ECG 12 lead EKG Stat EKG Documentation DIRECTED XR chest 1V Stat 11/23/20 10:27 CT head/brain wo con Stat 11/23/20 10:29 0.9 % Sodium Chloride [Ns] 500 ml IVCONT 999 mls/hr 11/23/20 10:30 Straight Urinary Catheterization .Now CT abdomen pelvis wo con Stat 11/23/20 10:36 Complete Blood Count Auto Diff Stat Free T4 (Free Thyroxine) Stat Lactic Acid Stat Lipase Stat Magnesium Stat Phosphorus Stat SLIDE REVIEW Stat TSH reflex Free T4 Stat Triglycerides Stat Troponin-I High Sensitivity Stat 11/23/20 10:37 Basic Metabolic Panel Stat Liver Panel Stat 11/23/20 11:24 Glucose, Whole Blood Routine 11/23/20 12:13 Glucose, blood poc .Now 11/23/20 12:15 Dextrose 5 % and 0.9 % NaCl [D5ns] 1,000 ml IVCONT 125 mls/hr 11/23/20 12:33 US abdomen limited Stat 11/23/20 12:46 0.9 % Sodium Chloride [Ns] 1,000 ml IVCONT 999 mls/hr 11/23/20 12:51 ondansetron HCL [Zofran] 4 mg .ROUTE .STK-MED ONE 11/23/20 12:52 Pheresis Platelets Stat Red Blood Cells Stat Type and Screen Stat 11/23/20 12:58 ondansetron HCL [Zofran] 4 mg IVPUSH ONCE ONE 11/23/20 13:03 Prochlorperazine Edisylate [Compazine] 10 mg IVPUSH ONCE ONE 11/23/20 13:24 ondansetron HCL [Zofran] 4 mg IVPUSH ONCE ONE 11/23/20 13:32 Norepinephrine Bitartrate/NS [Levophed] 8 mg in 250 ml IVCONT As directed 11/23/20 13:38 Glucose, Whole Blood Routine 11/23/20 13:45 Norepinephrine Bitartrate/NS [Levophed] 8 mg in 250 ml IVCONT Per Protocol mcg /kg/min 11/23/20 14:07 cefEPime HCl [Maxipime] 2 gm 0.9 % Sodium Chloride [Ns] 50 ml IV ONCE 11/23/20 14:09 SARS-CoV2/FLU/RSV Stat Venous Blood Gas Stat 11/23/20 14:16 cefEPime HCl [Maxipime] 2 gm IV .STK-MED ONE 11/23/20 15:00 Add Laboratory Test Stat 11/23/20 15:19 Vital Signs Q4HR 11/23/20 15:30 0.9 % Sodium Chloride [Ns] 1,000 ml IVCONT 60 mls/hr Norepinephrine Bitartrate/NS [Levophed] 8 mg in 250 ml IVCONT Per Protocol mcg/kg/min 11/23/20 15:44 Glucose, Whole Blood Routine 11/23/20 15:52 Cortisol Stat Hydrocortisone Sod Succ/PF [SOLU-Cortef] 100 mg 0.9 % Sodium Chloride [Ns] 100 ml IV ONCE Levothyroxine Sodium [Synthroid] 37.5 mcg IVPUSH ONCE ONE 11/23/20 16:58 Measure CVP QSHIFT 11/23/20 17:01 Meropenem 1 gm 0.9 % Sodium Chloride [Ns] 100 ml IV ONCE vancomycin HCL 1,000 mg 0.9 % Sodium Chloride [Ns] 250 ml IV ONCE 11/23/20 17:11 Levothyroxine Sodium [Synthroid] 12.5 mcg IVPUSH ONCE ONE 11/23/20 17:14 Haptoglobin Stat Lactate Dehydrogenase Stat Reticulocyte Count Stat 11/23/20 17:33 Hydrocortisone Sod Succ/PF [SOLU-Cortef] 100 mg .ROUTE .STK-MED ONE Meropenem 1 gm IV .STK-MED ONE vancomycin HCL 1,000 mg .ROUTE .STK-MED ONE 11/23/20 18:00 MVI, Adult [Infuvite Adult] 10 ml Trace Elements w/o chromium [Tralement] 1 ml AA 5 %/Calcium/Lytes/Dext 15 % [Clinimix E 5%-15%] 1,000 ml IV DAILY@1800 11/23/20 18:02 Glucose, Whole Blood Routine 11/23/20 20:00 Imm Glob G (IgG)/Sorb/IGA 0-50 [Flebogamma 10%] 5 gm in 50 ml IV ONCE Imm Glob G (IgG)/Sorb/IGA 0-50 [Flebogamma 10%] 10 gm in 100 ml IV ONCE 11/23/20 21:57 Complete Blood Count Auto Diff Stat SLIDE REVIEW Stat 11/24/20 00:07 Glucose, Whole Blood Routine 11/24/20 03:50 Glucose, Whole Blood Routine 11/24/20 05:15 Basic Metabolic Panel Routine Complete Blood Count Auto Diff Routine Lipase Routine Magnesium Routine Phosphorus Routine Venous Blood Gas Routine 11/24/20 08:15 Glucose, Whole Blood Routine 11/24/20 09:19 Liver Panel Routine Malaria Babesia Smear Stat 11/24/20 10:19 Doxycycline Hyclate [Vibramycin] 100 mg IV .STK-MED ONE 11/24/20 13:08 Glucose, Whole Blood Routine 11/24/20 14:53 Consult Rx Vancomycin Dosing 1 each MISCELLANE DAILY PRN 11/24/20 15:00 Hydrocortisone Sod Succ/PF [SOLU-Cortef] 50 mg 0.9 % Sodium Chloride [Ns] 50 ml IV Q12H Piperacillin Sodium/Tazobactam [Zosyn] 3.375 gm 0.9 % Sodium Chloride [Ns] 50 ml IV Q6H 11/24/20 15:15 Hydrocortisone Sod Succ/PF [SOLU-Cortef] 50 mg IVPUSH Q12H 11/24/20 15:30 Piperacillin Sodium/Tazobactam [Zosyn] 3.375 gm IV .ST-MED ONE vancomycin HCL 750 mg IV .STK-MED ONE 11/24/20 16:00 vancomycin HCL 750 mg 0.9 % Sodium Chloride [Ns] 250 ml IV Q12H 11/24/20 16:15 Levothyroxine Sodium [Synthroid] 50 mcg IVPUSH DAILY 11/24/20 17:55 Glucose, Whole Blood Routine 11/24/20 18:00 MVI, Adult [Infuvite Adult] 14 ml Trace Elements w/o chromium [Tralement] 1.4 ml AA 5 %/Calcium/Lytes/Dext 15 % [Clinimix E 5%-15%] 2,000 ml IV DAILY@1800 11/24/20 20:21 Piperacillin Sodium/Tazobactam [Zosyn] 3.375 gm IV .STK-MED ONE 11/24/20 22:49 Doxycycline Hyclate [Vibramycin] 100 mg IV .STK-MED ONE 11/24/20 23:26 Glucose, Whole Blood Routine 11/25/20 03:17 Piperacillin Sodium/Tazobactam [Zosyn] 3.375 gm IV .STK-MED ONE 11/25/20 04:07 vancomycin HCL 750 mg IV .STK-MED ONE 11/25/20 05:30 Complete Blood Count Auto Diff Routine Comprehensive Met. Panel Routine Lipase Routine Magnesium Routine Phosphorus Routine SLIDE REVIEW Routine Venous Blood Gas Routine 11/25/20 05:58 Glucose, Whole Blood Routine 11/25/20 07:33 Add Laboratory Test Urgent 11/25/20 08:38 Piperacillin Sodium/Tazobactam [Zosyn] 3.375 gm IV .STK-MED ONE 11/25/20 10:18 Doxycycline Hyclate [Vibramycin] 100 mg IV .STK-MED ONE 11/25/20 12:20 Glucose, Whole Blood Routine 11/25/20 15:55 Piperacillin Sodium/Tazobactam [Zosyn] 3.375 gm IV .STK-MED ONE vancomycin HCL 750 mg IV .STK-MED ONE 11/25/20 18:00 MVI, Adult [Infuvite Adult] 14 ml Trace Elements w/o chromium [Tralement] 1.4 ml AA 5 %/Calcium/Lytes/Dext 15 % [Clinimix E 5%-15%] 2,000 ml IV DAILY@1800 11/25/20 18:11 Glucose, Whole Blood Routine 11/25/20 19:52 Piperacillin Sodium/Tazobactam [Zosyn] 3.375 gm IV .STK-MED ONE 11/25/20 21:42 Doxycycline Hyclate [Vibramycin] 100 mg IV .STK-MED ONE 11/25/20 23:41 Glucose, Whole Blood Routine 11/26/20 02:39 Piperacillin Sodium/Tazobactam [Zosyn] 3.375 gm IV .STK-MED ONE 11/26/20 03:08 Vancomycin Trough Routine 11/26/20 04:40 vancomycin HCL 750 mg IV .STK-MED ONE 11/26/20 05:10 Complete Blood Count Auto Diff DAILY@0600 Comprehensive Met. Panel DAILY@0600 Lipase Routine Magnesium DAILY@0600 Phosphorus DAILY@0600 SLIDE REVIEW Routine 11/26/20 05:12 Venous Blood Gas DAILY@0600 11/26/20 05:49 Rocuronium [place] [Zemuron] 35 mg IVPUSH ONCE ONE 11/26/20 09:01 Transfer Order Routine 11/26/20 10:17 Potassium Phosphate [KPhos] 30 mmol 0.9 % Sodium Chloride [Ns] 500 ml IV ONCE 11/26/20 10:52 Doxycycline Hyclate [Vibramycin] 100 mg IV .STK-MED ONE 11/26/20 12:11 Glucose, Whole Blood Routine 11/26/20 13:24 Direct Clay (BOLIVAR) Routine Fibrinogen Urgent Partial Thromboplastin Time Urgent Prothrombin Time INR Urgent 11/26/20 13:43 Compression Therapy QSHIFT 11/26/20 14:45 FL barium swallow modified Routine 11/26/20 Lunch NPO Pending Swallow Eval Diet 11/26/20 18:03 Glucose, Whole Blood Routine 11/26/20 19:30 Lactate Dehydrogenase Routine 11/26/20 22:18 Doxycycline Hyclate [Vibramycin] 100 mg IV .STK-MED ONE 11/27/20 03:38 Glucose, Whole Blood Routine 11/27/20 06:00 Complete Blood Count Auto Diff DAILY@0600 Comprehensive Met. Panel DAILY@0600 Ferritin Routine IRON PROFILE Routine SLIDE REVIEW Routine Vitamin B12 and Folate Routine 11/27/20 06:19 Glucose, Whole Blood Routine 11/27/20 06:38 Dextrose 50 % [D50] 25 gm IVPUSH ONCE ONE 11/27/20 07:19 Glucose, Whole Blood Routine 11/27/20 08:21 Add Laboratory Test Urgent 11/27/20 09:00 methylPREDNISolone Sod Succ/PF [SOLU-MedroL] 40 mg 0.9 % Sodium Chloride [Ns] 100 ml IV DAILY 11/27/20 09:04 Doxycycline Hyclate [Vibramycin] 100 mg IV .STK-MED ONE methylPREDNISolone Sod Succ/PF [SOLU-MedroL] 125 mg .ROUTE .STK-MED ONE 11/27/20 Breakfast Regular Diet 11/27/20 11:10 Glucose, Whole Blood Routine 11/27/20 12:23 Glucose, Whole Blood Routine 11/27/20 16:32 Glucose, Whole Blood Routine 11/27/20 18:07 Glucose, Whole Blood Routine 11/27/20 20:45 Glucose, Whole Blood Routine 11/27/20 21:53 Doxycycline Hyclate [Vibramycin] 100 mg IV .STK-MED ONE 11/27/20 23:47 Glucose, Whole Blood Routine 11/28/20 02:14 Glucose, Whole Blood Routine 11/28/20 02:17 Dextrose 50 % [D50] 25 gm IVPUSH ONCE ONE 11/28/20 04:17 Glucose, Whole Blood Routine 11/28/20 05:23 BMP [Basic Metabolic Panel Fasting] Routine Complete Blood Count Auto Diff Routine SLIDE REVIEW Routine 11/28/20 07:37 Glucose, Whole Blood Routine 11/28/20 09:36 Doxycycline Hyclate [Vibramycin] 100 mg IV .K-MED ONE Laboratory Last Values WBC 5.8 X10*3/uL (4.8-10.8) 11/28/20 05:23 RBC 2.79 X10*6/uL (4.20-5.50) L 11/28/20 05:23 Hgb 8.7 g/dl (12.0-16.0) L 11/28/20 05:23 Hct 26.2 % (37-47) L 11/28/20 05:23 MCV 93.9 fL (80-98) 11/28/20 05:23 MCH 31.2 pg (27.0-33.0) 11/28/20 05:23 MCHC 33.2 g/dl (31.0-35.0) 11/28/20 05:23 RDW 17.5 % (11.0-16.0) H 11/28/20 05:23 Plt Count 39 X10*3/uL (160-400) L 11/28/20 05:23 MPV 10.8 fL (9.4-12.3) 11/28/20 05:23 Immature Gran % (Auto) 0.0 % (0.0-0.4) 11/28/20 05:23 Neut % (Auto) 30.5 % (45-73) L 11/28/20 05:23 Lymph % (Auto) 64.3 % (20-40) H 11/28/20 05:23 [place] % (Auto) 5.0 % (2-11) 11/28/20 05:23 Eos % (Auto) 0.2 % (0-4) 11/28/20 05:23 Baso % (Auto) 0.0 % (0-2) 11/28/20 05:23 Lymph # (Auto) 3.7 X10*3/uL (1.2-4.9) 11/28/20 05:23 [place] # (Auto) 0.3 X10*3/uL (0.1-1.2) 11/28/20 05:23 Eos # (Auto) 0.0 X10*3/uL (0.0-0.4) 11/28/20 05:23 Baso # (Auto) 0.0 X10*3/uL (0.0-0.2) 11/28/20 05:23 Abs Immat Gran (auto) 0.00 X10*3/uL (0.00-0.03) 11/28/20 05:23 Absolute Neuts (auto) 1.8 X10*3/uL (2.0-8.3) L 11/28/20 05:23 Absolute Nucleated RBC 0.000 X10*3/uL (0.0-0.012) 11/28/20 05:23 Nucleated RBC % (auto) 0.0 /100WBC (0.0-0.2) 11/28/20 05:23 Smear Tech's Comments VERIFIED 11/28/20 05:23 Smear Path Review SEE NOTE 11/23/20 10:36 Absolute Retic 0.054 X10*6/uL (0.026-0.095) 11/23/20 17:14 Percent Retic 2.2 % (0.5-1.8) H 11/23/20 17:14 Immature Retic Fraction 5.6 % (3.0-15.9) 11/23/20 17:14 Retic Hgb Equivalent 33.5 pg (30.0-35.0) 11/23/20 17:14 Haptoglobin <8 mg/dL (43-212) L 11/23/20 17:14 PT 12.7 SEC (10.8-13.0) 11/26/20 13:24 INR 1.1 (0.9-1.1) 11/26/20 13:24 APTT 31.8 SEC (24.1-38.0) 11/26/20 13:24 Fibrinogen 171 MG/DL (259-690) L 11/26/20 13:24 VBG pH 7.37 (7.32-7.43) 11/26/20 05:12 VBG pCO2 45 mmhg 11/26/20 05:12 VBG pO2 35 mmhg 11/26/20 05:12 VBG HCO3 26 mmol/L 11/26/20 05:12 VBG O2 Saturation 65.8 % 11/26/20 05:12 VBG Base Excess 0.0 mmol/L 11/26/20 05:12 Sodium 141 mmol/L (135-145) 11/28/20 05:23 Potassium 4.2 mmol/l (3.3-5.1) 11/28/20 05:23 Chloride 111 mmol/L (96-108) H 11/28/20 05:23 Carbon Dioxide 23 mmol/L (22-29) 11/28/20 05:23 Anion Gap 11 (12-20) L 11/28/20 05:23 BUN 28 mg/dL (9-16) H 11/28/20 05:23 Creatinine 0.62 mg/dL (0.5-1.4) 11/28/20 05:23 Estim Creat Clear Calc 56.3 11/28/20 05:23 Estimated GFR > 60 11/28/20 05:23 POC Glucose 69 mg/dL (60-115) 11/28/20 07:37 Random Glucose 65 mg/dL (60-115) D 11/27/20 06:00 Fasting Glucose 103 mg/dL (60-99) H 11/28/20 05:23 Lactic Acid 0.5 mmol/L (0.5-2.0) 11/23/20 10:36 Calcium 8.0 mg/dL (8.4-10.2) L 11/28/20 05:23 Phosphorus 2.4 mg/dL (2.7-4.5) L 11/26/20 05:10 Magnesium 1.7 mg/dL (1.6-2.6) 11/26/20 05:10 Iron 125 mcg/dL (30-160) 11/27/20 06:00 TIBC 232 mcg/dL (228-428) 11/27/20 06:00 % Saturation 54 % (15-50) H 11/27/20 06:00 Unsat Iron Binding 107 ug/dL 11/27/20 06:00 Ferritin 589 ng/mL (10-250) H 11/27/20 06:00 Total Bilirubin 0.7 mg/dL (0.0-1.0) 11/27/20 06:00 Direct Bilirubin 0.3 mg/dL (0.0-0.5) 11/24/20 09:19 AST 472 U/L (5-31) H 11/27/20 06:00 ALT 406 U/L (0-31) H 11/27/20 06:00 Alkaline Phosphatase 241 U/L (39-117) H 11/27/20 06:00 Lactate Dehydrogenase 260 U/L (122-220) H 11/26/20 19:30 Troponin I High Sens 7.9 ng/L (<3.5-17.0) 11/23/20 10:36 Total Protein 4.6 g/dL (6.5-8.0) L 11/27/20 06:00 Albumin 2.5 g/dL (3.5-5.0) L 11/27/20 06:00 Triglycerides 25 mg/dL 11/23/20 10:36 Lipase 1024 U/L (8-78) H 11/26/20 05:10 Vitamin B12 1694 pg/mL (200-900) H 11/27/20 06:00 Folate 15.5 ng/mL (> or = 4.0) 11/27/20 06:00 TSH 7.39 mIU/mL (0.32-4.0) H 11/23/20 10:36 Free T4 1.20 ng/dL (0.71-1.85) 11/23/20 10:36 Cortisol 24.2 mcg/dL H 11/24/20 05:15 Urine Color YELLOW 11/23/20 11:29 Urine Appearance HAZY 11/23/20 11:29 Urine pH 5.5 (5.0-8.0) 11/23/20 11:29 Ur Specific [place] 1.025 (1.005-1.025) 11/23/20 11:29 Urine Protein TRACE MG/DL (NEG-TRACE) 11/23/20 11:29 Urine Glucose (UA) NEG MG/DL (NEG) 11/23/20 11:29 Urine Ketones 5 MG/DL (NEG) 11/23/20 11:29 Urine Blood TRACE (NEG) 11/23/20 11:29 Urine Nitrite NEG (NEG) 11/23/20 11:29 Ur Leukocyte Esterase NEG (NEG) 11/23/20 11:29 Urine RBC 0 /HPF (0) 11/23/20 11:29 Urine WBC 0-2 /HPF (0-4) 11/23/20 11:29 Ur Squamous Epith Cells NONE /LPF 11/23/20 11:29 Urine Bacteria NONE /LPF 11/23/20 11:29 Epithelial Casts 0-2 /LPF 11/23/20 11:29 Hyaline Casts 5-9 /LPF 11/23/20 11:29 Granular Casts 1-4 /LPF 11/23/20 11:29 Urine Mucus 2+ /LPF 11/23/20 11:29 Vancomycin Trough 5.8 mcg/mL (10.0-20.0) L 11/26/20 03:08 Babesia Smear NEGATIVE (NEGATIVE) 11/24/20 09:19 Babesia microti IgG Ab <1:64 titer (<1:64) 11/24/20 09:19 Babesia microti IgM Ab <1:20 titer (<1:20) 11/24/20 09:19 Babesia Interpretation SEE NOTE 11/24/20 09:19 Coronavirus (PCR) NEGATIVE (Negative) 11/23/20 14:09 Influenza Type A (PCR) NEGATIVE (Negative) 11/23/20 14:09 Influenza Type B (PCR) NEGATIVE (Negative) 11/23/20 14:09 Malaria Smear NEGATIVE (NEGATIVE) 11/24/20 09:19 RSV RNA Qual (PCR) NEGATIVE (Negative) 11/23/20 14:09 Blood Type A Negative 11/23/20 12:52 Antibody Screen NEGATIVE 11/23/20 12:52 Direct Antiglob Test TNP 11/26/20 13:24 BOLIVAR, Polyspecific NEGATIVE 11/26/20 13:24 Crossmatch See Detail 11/23/20 12:52 - Imaging Radiologist's impression: ITS Impressions Chest X-Ray 11/23/20 00:00 IMPRESSION: Right internal jugular central venous catheter terminates at the superior cavoatrial junction. No pneumothorax. Stable trace bilateral pleural effusions. Chest X-Ray 11/23/20 10:26 IMPRESSION: No evidence of acute pneumonitis or parenchymal consolidation. Nonspecific nodular opacity at the medial right lung base. Head CT 11/23/20 10:27 IMPRESSION: CT HEAD: * No acute intracranial pathology. * White matter small vessel ischemic changes. CT ABDOMEN/PELVIS: * Markedly limited exam due to anasarca and lack of intravenous contrast. * No evidence of bowel obstruction. * Moderate to severe constipation. * Small volume ascites. * No source of infection within the abdomen or pelvis. Abdomen/Pelvis CT 11/23/20 10:30 IMPRESSION: CT HEAD: * No acute intracranial pathology. * White matter small vessel ischemic changes. CT ABDOMEN/PELVIS: * Markedly limited exam due to anasarca and lack of intravenous contrast. * No evidence of bowel obstruction. * Moderate to severe constipation. * Small volume ascites. * No source of infection within the abdomen or pelvis. Abdomen Ultrasound 11/23/20 12:33 IMPRESSION: Limited imaging. No gross abnormalities above. Nonspecific intrinsic liver disease suspected. No biliary dilatation. Modified Barium Swallow 11/26/20 14:45 IMPRESSION: Slight delay in the oral phase but no obstruction. Trace laryngeal penetration seen on initial exam but no laryngeal aspiration seen. Progress Note: A/P (1) Chronic lymphocytic leukemia Status: Chronic Assessment and plan: Chronic lymphocytic leukemia. Patient has been diagnosed with this condition at least 15 years ago. I called her oncologist's office in [facility], she was never treated as she had no symptoms. She was administered IVIG monthly for hypogammaglobulinemia. Her platelets in the last year or so have been running around 30,000 but hemoglobin has been 10-11 gram/dL. (2) Anemia Status: Acute Assessment and plan: Anemia is acute and appears to be hemolytic anemia, Clay negative. LDH is not significantly elevated and total bilirubin is normal. Anemia could be related to underlying CLL. She has no hematinic deficiencies. I discussed further evaluation with bone marrow biopsy both for her anemia and CLL. Hemolytic anemia is an indication for treatment of CLL. Prednisone might help in this setting. She has been started on Solu-Medrol. She can be switched to prednisone 40 mg p.o. once a day and taper gradually after 10 days by 5 mg every 5 days. She should have a follow-up with tank wagon operator in a week to 10 days. I thank you for this consultation. - Time Spent With Patient Total time spent is greater than 50% in coordination of care (as documented) at patient's floor/unit and/or counseling patient: 15 - 24 minutes
--- NOTE | 2020-11-28 11:21 | MHC.CM.PN ---
CM spoke with Brenden @ [phone]. PT originally recommended home with services, while under the impression that the Patient would be returning home to stay with the Son/Porfirio.Per Porfirio, Patient returning to his home is NOT an option. With Porfirio's permission, [facility] has made referrals to area facilities, in the event that PT's recommendation changes to STR after treating Patient today. CM will continue to follow for dc planning and the possible need to adjust the dc plan.
[2020-11-28 11:37] VITALS: BP 118/70; PULSE 55; RESP 18; TEMP 36.6; O2SAT 96
[2020-11-28 11:44] LABS: Glucose, Whole Blood 98 mg/dL (60-115)
--- NOTE | 2020-11-28 11:47 | HO.PM.IMPN ---
Subjective Subjective Date of Service: 11/28/20 Interval History: minimal appetite Cardiovascular Cardiovascular: Reports no additional cardiovascular complaints Respiratory Respiratory: Reports no additional respiratory complaints Physical Exam Vital Signs: Vital Signs: Last Vital Signs Temp 97.8 F 11/28/20 11:37 Pulse 55 11/28/20 11:37 Resp 18 11/28/20 11:37 BP 118/70 11/28/20 11:37 Pulse Ox 96 11/28/20 11:37 Body Mass Index 23.1 General: AO X 3, no acute distress Resp: CTA bilateral CVS: S1,S2,RRR GI: soft, non tender, non distended Neuro: motor grossly intact Psych: appropriate affect Objective Data Current Medications Generic Name Dose Route Start Last Admin Trade Name Freq PRN Reason Stop Dose Admin Hydromorphone HCl 0.5 mg 11/24/20 14:55 11/25/20 00:50 Hydromorphone Hcl 0.5 Mg/0.5 Ml Syringe IVPUSH 0.5 mg Q4H PRN Administration Breakthrough Pain Doxycycline Hyclate 100 mg/ 250 mls @ 166.67 mls/hr 11/24/20 10:00 11/28/20 10:32 Sodium Chloride IV 166.67 mls/hr Q12H ROMMEL Administration Levothyroxine Sodium 88 mcg 11/28/20 06:30 11/28/20 05:36 Levothyroxine Sodium 88 Mcg Tablet PO 88 mcg DAILY@0630 ROMMEL Administration Methylprednisolone Sodium Succinate 40 mg 11/27/20 10:00 11/28/20 10:32 Methylprednisolone Sod Succ/Pf 40 Mg/Ml Vial IVPUSH 40 mg Q24H ROMMEL Administration Sodium Chloride 3 ml 11/23/20 16:00 11/28/20 07:46 0.9 % Sodium Chloride Flush 3 Ml Syringe IVFLUSH 3 ml QSHIFT ROMMEL Administration Labs CBC & Chem 7: 11/28/20 05:23 11/28/20 05:23 Microbiology Microbiology Results: Microbiology 11/23/20 11:31 Blood - Venous Blood Culture - Preliminary No growth after 48 hours. 11/23/20 11:31 Blood - Venous Blood Culture - Preliminary No growth after 48 hours. Assessment and Plan (1) Chronic lymphocytic leukemia: Status: Chronic (2) Anemia: Status: Acute Assessment and Plan: 75F with history of CLL and anorexia presented with ams, hypothermia, hypotension, pancytopenia. Was transfused platelets and red blood cells, given IV Synthroid, steroids, given nutrition. Mental status returned to baseline, temperature returned to normal. Downgraded to medical floor Metabolic encephalopathy complicated by hypothermia, hypertension Multifactorial due to advanced CLL with pancytopenia and hemolytic anemia as well as anorexia and moderate protein calorie malnutrition Continue steroids - on dc prednisone 40mg daily for 10 days then decrease by 5mg every 5 days Nutrition plan for snf outpatient hematology follow up Hypothyroid Synthroid
--- NOTE | 2020-11-28 11:50 | MHC.CM.PN ---
PER Son/Porfirio's request, RILEY has requested Attending and Oncologist MDs to phone Porfirio; both were agreeable. RILEY will follow.
--- NOTE | 2020-11-28 13:16 | MHC.CM.PN ---
PT is now recommending STR. Patient is accepted at [facility] and hoping for a bed to open up at [facility] tomorrow. Patient continues on IV Doxycycline and IV Solu Medrol; TPN has been dc. Son/Porfirio was very appreciative of Oncologist calling him with an update. CM will continue to follow.
[2020-11-28 15:28] LABS: A. Phagocytophilum Ab IgG <1:64 (<1:64); A. Phagocytophilum Ab IgM <1:20 (<1:20); E. Chaffeensis Ab IgG <1:64 (<1:64); E. Chaffeensis Ab IgM <1:20 (<1:20)
[2020-11-28 16:00] VITALS: BP 127/75; PULSE 63; RESP 19; TEMP 36.4; O2SAT 96
[2020-11-28 16:27] LABS: Glucose, Whole Blood 84 mg/dL (60-115)
[2020-11-28 16:37] LABS: LLE Markers 23
[2020-11-28 20:00] VITALS: BP 131/63; PULSE 57; RESP 14; TEMP 36.4; O2SAT 99
[2020-11-28 21:51] LABS: Glucose, Whole Blood 78 mg/dL (60-115)
[2020-11-28 23:48] VITALS: BP 125/65; PULSE 52; RESP 15; TEMP 36.4; O2SAT 95
[2020-11-29 03:55] VITALS: BP 127/67; PULSE 57; RESP 15; TEMP 36.4; O2SAT 96
[2020-11-29] MEDS: Levothyroxine Sodium 88 MCG TABLET PO (06:24)
[2020-11-29 07:36] VITALS: BP 130/60; PULSE 58; RESP 18; TEMP 36.4; O2SAT 96
[2020-11-29 07:46] LABS: Glucose, Whole Blood 58 mg/dL (60-115)
[2020-11-29] MEDS: 0.9 % Sodium Chloride Flush 3 ML SYRINGE IVFLUSH (07:50)
[2020-11-29 08:53] LABS: Glucose, Whole Blood 76 mg/dL (60-115)
[2020-11-29 11:04] VITALS: BP 119/56; PULSE 58; RESP 18; TEMP 36.5; O2SAT 98
--- NOTE | 2020-11-29 11:11 | MHC.CLN ---
F/U PO INTAKE 100% X3 (11/27), 25/50% (11/28) DIET RX: GROUND WITH NT LIQ-APPROPRIATE S/P MBS PT RECEIVING ENSURE BID TO INCREASE KCALS PROVIDES 700KCALS (63% EST KCAL NEEDS), 40G PROTEIN (83% EST PRO NEEDS) WT STABLE AT 118# FOLLOWING
[2020-11-29 11:30] LABS: Glucose, Whole Blood 114 mg/dL (60-115)
--- NOTE | 2020-11-29 12:00 | PM.DS ---
DS: Providers Provider Date of Service: 11/29/20 Date of admission: 11/23/20 15:19 Primary care physician: Unknown Physician Consults: 11/26/20 10:15 Consult to Hematology / Oncology Routine Consulting Provider: [facility] [place]ology Reason for consultation: CLL with pancytopenia DS: Diagnosis Discharge Diagnosis (1) Chronic lymphocytic leukemia: Status: Chronic (2) Anemia: Status: Acute (3) Acute pancreatitis: Status: Acute (4) Thrombocytopenia due to hypersplenism: Status: Acute (5) Chronic leukopenia: Status: Acute (6) Neutropenia: Status: Acute (7) Hypothermia: Status: Acute (8) Hypotension: Status: Acute (9) Protein-calorie malnutrition, moderate: Status: Acute (10) Hypothyroid: Status: Acute DS: Medications Discharge Medications Home Medications: Home Medications Medication Instructions Recorded Confirmed cholecalciferol (vitamin D3) 25 mcg PO DAILY 11/27/20 11/27/20 [Vitamin D3] levothyroxine 88 mcg PO DAILY@0630 11/27/20 11/27/20 multivitamin 1 tab PO DAILY 11/27/20 11/27/20 sodium chloride 1 g PO DAILY 11/27/20 11/27/20 Previous Rx's Medication Instructions Recorded prednisone 40 mg PO DAILY 45 Days #90 tab 11/29/20 DS: Summary Hospital Course Hospital Course: 75F with history of CLL and anorexia presented with metabolic encephalopathy, hypothermia, hypotension, pancytopenia. she was initially admitted to ICU for vasopressors. She was transfused platelets and red blood cells, given IV steroids, and nutrition. Mental status returned to baseline, temperature returned to normal. She was downgraded to medical floor. she was empirically treated with doxycyline, but serologies were negative and antibiotics were discontinued. she was seen by hematology and diagnosed with hemolytic anemia. she will be given prednisone taper 40mg daily for 10 days then decreasing by 5mg every 5 days. she will follow up outpaitnet with hematology. she also needs to continue nutritional intake. she will be discharged to SNF. Time Spent with Patient Time attestation: Total time spent providing and/or coordinating discharge services: Discharge coordination time: Greater than 30 minutes Physical Exam Vital Signs: Vital Signs: Last Vital Signs Temp 97.7 F 11/29/20 11:04 Pulse 58 11/29/20 11:04 Resp 18 11/29/20 11:04 BP 119/56 L 11/29/20 11:04 Pulse Ox 98 11/29/20 11:04 Body Mass Index 23.1 General: AO X 3, no acute distress, cachexic Resp: CTA bilateral CVS: S1,S2,RRR GI: soft, non tender, non distended Neuro: motor grossly intact Psych: appropriate affect DS: Data Data Completed and Pending Labs on day of discharge: 11/23/20 XR chest 1V Stat 11/23/20 10:00 Glucose, Whole Blood Routine 11/23/20 10:26 ECG 12 lead EKG Stat EKG Documentation DIRECTED XR chest 1V Stat 11/23/20 10:27 CT head/brain wo con Stat 11/23/20 10:29 0.9 % Sodium Chloride [Ns] 500 ml IVCONT 999 mls/hr 11/23/20 10:30 Straight Urinary Catheterization .Now CT abdomen pelvis wo con Stat 11/23/20 10:36 Complete Blood Count Auto Diff Stat Free T4 (Free Thyroxine) Stat Lactic Acid Stat Lipase Stat Magnesium Stat Phosphorus Stat SLIDE REVIEW Stat TSH reflex Free T4 Stat Triglycerides Stat Troponin-I High Sensitivity Stat 11/23/20 10:37 Basic Metabolic Panel Stat Liver Panel Stat 11/23/20 11:24 Glucose, Whole Blood Routine 11/23/20 11:31 Blood Culture X2 [BC] Stat 11/23/20 12:13 Glucose, blood poc .Now 11/23/20 12:15 Dextrose 5 % and 0.9 % NaCl [D5ns] 1,000 ml IVCONT 125 mls/hr 11/23/20 12:33 US abdomen limited Stat 11/23/20 12:46 0.9 % Sodium Chloride [Ns] 1,000 ml IVCONT 999 mls/hr 11/23/20 12:51 ondansetron HCL [Zofran] 4 mg .ROUTE .STK-MED ONE 11/23/20 12:52 Pheresis Platelets Stat Red Blood Cells Stat Type and Screen Stat 11/23/20 12:58 ondansetron HCL [Zofran] 4 mg IVPUSH ONCE ONE 11/23/20 13:03 Prochlorperazine Edisylate [Compazine] 10 mg IVPUSH ONCE ONE 11/23/20 13:24 ondansetron HCL [Zofran] 4 mg IVPUSH ONCE ONE 11/23/20 13:32 Norepinephrine Bitartrate/NS [Levophed] 8 mg in 250 ml IVCONT As directed 11/23/20 13:38 Glucose, Whole Blood Routine 11/23/20 13:45 Norepinephrine Bitartrate/NS [Levophed] 8 mg in 250 ml IVCONT Per Protocol mcg/kg/min 11/23/20 14:07 cefEPime HCl [Maxipime] 2 gm 0.9 % Sodium Chloride [Ns] 50 ml IV ONCE 11/23/20 14:09 SARS-CoV2/FLU/RSV Stat Venous Blood Gas Stat 11/23/20 14:16 cefEPime HCl [Maxipime] 2 gm IV .STK-MED ONE 11/23/20 15:00 Add Laboratory Test Stat 11/23/20 15:19 Vital Signs Q4HR 11/23/20 15:30 0.9 % Sodium Chloride [Ns] 1,000 ml IVCONT 60 mls/hr Norepinephrine Bitartrate/NS [Levophed] 8 mg in 250 ml IVCONT Per Protocol mcg/kg/min 11/23/20 15:44 Glucose, Whole Blood Routine 11/23/20 15:52 Cortisol Stat Hydrocortisone Sod Succ/PF [SOLU-Cortef] 100 mg 0.9 % Sodium Chloride [Ns] 100 ml IV ONCE Levothyroxine Sodium [Synthroid] 37.5 mcg IVPUSH ONCE ONE 11/23/20 16:58 Measure CVP QSHIFT 11/23/20 17:01 Meropenem 1 gm 0.9 % Sodium Chloride [Ns] 100 ml IV ONCE vancomycin HCL 1,000 mg 0.9 % Sodium Chloride [Ns] 250 ml IV ONCE 11/23/20 17:11 Levothyroxine Sodium [Synthroid] 12.5 mcg IVPUSH ONCE ONE 11/23/20 17:14 Haptoglobin Stat Lactate Dehydrogenase Stat Reticulocyte Count Stat 11/23/20 17:33 Hydrocortisone Sod Succ/PF [SOLU-Cortef] 100 mg .ROUTE .STK-MED ONE Meropenem 1 gm IV .STK-MED ONE vancomycin HCL 1,000 mg .ROUTE .STK-MED ONE 11/23/20 18:00 MVI, Adult [Infuvite Adult] 10 ml Trace Elements w/o chromium [Tralement] 1 ml AA 5 %/Calcium/Lytes/Dext 15 % [Clinimix E 5%-15%] 1,000 ml IV DAILY@1800 11/23/20 18:02 Glucose, Whole Blood Routine 11/23/20 20:00 Imm Glob G (IgG)/Sorb/IGA 0-50 [Flebogamma 10%] 5 gm in 50 ml IV ONCE Imm Glob G (IgG)/Sorb/IGA 0-50 [Flebogamma 10%] 10 gm in 100 ml IV ONCE 11/23/20 21:57 Complete Blood Count Auto Diff Stat SLIDE REVIEW Stat 11/24/20 00:07 Glucose, Whole Blood Routine 11/24/20 03:50 Glucose, Whole Blood Routine 11/24/20 05:15 Basic Metabolic Panel Routine Complete Blood Count Auto Diff Routine Lipase Routine Magnesium Routine Phosphorus Routine Venous Blood Gas Routine 11/24/20 08:15 Glucose, Whole Blood Routine 11/24/20 09:19 Babesia IgG/IgM Routine Ehrlichia Anaplasma Ab Panel Routine Liver Panel Routine Malaria Babesia Smear Stat 11/24/20 10:00 Doxycycline Hyclate [Vibramycin] 100 mg 0.9 % Sodium Chloride [Ns] 250 ml IV Q12H 11/24/20 10:19 Doxycycline Hyclate [Vibramycin] 100 mg IV .STK-MED ONE 11/24/20 13:08 Glucose, Whole Blood Routine 11/24/20 14:53 Consult Rx Vancomycin Dosing 1 each MISCELLANE DAILY PRN 11/24/20 15:00 Hydrocortisone Sod Succ/PF [SOLU-Cortef] 50 mg 0.9 % Sodium Chloride [Ns] 50 ml IV Q12H Piperacillin Sodium/Tazobactam [Zosyn] 3.375 gm 0.9 % Sodium Chloride [Ns] 50 ml IV Q6H 11/24/20 15:15 Hydrocortisone Sod Succ/PF [SOLU-Cortef] 50 mg IVPUSH Q12H 11/24/20 15:30 Piperacillin Sodium/Tazobactam [Zosyn] 3.375 gm IV .STK-MED ONE vancomycin HCL 750 mg IV .STK-MED ONE 11/24/20 16:00 vancomycin HCL 750 mg 0.9 % Sodium Chloride [Ns] 250 ml IV Q12H 11/24/20 16:15 Levothyroxine Sodium [Synthroid] 50 mcg IVPUSH DAILY 11/24/20 17:55 Glucose, Whole Blood Routine 11/24/20 18:00 MVI, Adult [Infuvite Adult] 14 ml Trace Elements w/o chromium [Tralement] 1.4 ml AA 5 %/Calcium/Lytes/Dext 15 % [Clinimix E 5%-15%] 2,000 ml IV DAILY@1800 11/24/20 20:21 Piperacillin Sodium/Tazobactam [Zosyn] 3.375 gm IV .STK-MED ONE 11/24/20 22:49 Doxycycline Hyclate [Vibramycin] 100 mg IV .STK-MED ONE 11/24/20 23:26 Glucose, Whole Blood Routine 11/25/20 03:17 Piperacillin Sodium/Tazobactam [Zosyn] 3.375 gm IV .STK-MED ONE 11/25/20 04:07 vancomycin HCL 750 mg IV .STK-MED ONE 11/25/20 05:30 Complete Blood Count Auto Diff Routine Comprehensive Met. Panel Routine Lipase Routine Magnesium Routine Phosphorus Routine SLIDE REVIEW Routine Venous Blood Gas Routine 11/25/20 05:58 Glucose, Whole Blood Routine 11/25/20 07:33 Add Laboratory Test Urgent 11/25/20 08:38 Piperacillin Sodium/Tazobactam [Zosyn] 3.375 gm IV .STK-MED ONE 11/25/20 10:18 Doxycycline Hyclate [Vibramycin] 100 mg IV .STK-MED ONE 11/25/20 12:20 Glucose, Whole Blood Routine 11/25/20 15:55 Piperacillin Sodium/Tazobactam [Zosyn] 3.375 gm IV .STK-MED ONE vancomycin HCL 750 mg IV .STK-MED ONE 11/25/20 18:00 MVI, Adult [Infuvite Adult] 14 ml Trace Elements w/o chromium [Tralement] 1.4 ml AA 5 %/Calcium/Lytes/Dext 15 % [Clinimix E 5%-15%] 2,000 ml IV DAILY@1800 11/25/20 18:11 Glucose, Whole Blood Routine 11/25/20 19:52 Piperacillin Sodium/Tazobactam [Zosyn] 3.375 gm IV .STK-MED ONE 11/25/20 21:42 Doxycycline Hyclate [Vibramycin] 100 mg IV .STK-MED ONE 11/25/20 23:41 Glucose, Whole Blood Routine 11/26/20 02:39 Piperacillin Sodium/Tazobactam [Zosyn] 3.375 gm IV .[facility]-MED ONE 11/26/20 03:08 Vancomycin Trough Routine 11/26/20 04:40 vancomycin HCL 750 mg IV .[facility]-MED ONE 11/26/20 05:10 Complete Blood Count Auto Diff DAILY@0600 Comprehensive Met. Panel DAILY@0600 Lipase Routine Magnesium DAILY@0600 Phosphorus DAILY@0600 SLIDE REVIEW Routine 11/26/20 05:12 Venous Blood Gas DAILY@0600 11/26/20 05:49 Rocuronium [place] [Zemuron] 35 mg IVPUSH ONCE ONE 11/26/20 09:01 Transfer Order Routine 11/26/20 10:17 Potassium Phosphate [KPhos] 30 mmol 0.9 % Sodium Chloride [Ns] 500 ml IV ONCE 11/26/20 10:52 Doxycycline Hyclate [Vibramycin] 100 mg IV .[facility] ONE 11/26/20 12:11 Glucose, Whole Blood Routine 11/26/20 13:24 Direct Clay (BOLIVAR) Routine Fibrinogen Urgent Partial Thromboplastin Time Urgent Prothrombin Time INR Urgent 11/26/20 13:43 Compression Therapy QSHIFT 11/26/20 14:45 FL barium swallow modified Routine 11/26/20 Lunch NPO Pending Swallow Eval Diet 11/26/20 18:03 Glucose, Whole Blood Routine 11/26/20 19:30 Lactate Dehydrogenase Routine Leukemia/Lymphoma Eval. Blood Routine 11/26/20 22:18 Doxycycline Hyclate [Vibramycin] 100 mg IV .[facility]-MED ONE 11/27/20 03:38 Glucose, Whole Blood Routine 11/27/20 06:00 Complete Blood Count Auto Diff DAILY@0600 Comprehensive Met. Panel DAILY@0600 Ferritin Routine IRON PROFILE Routine SLIDE REVIEW Routine Vitamin B12 and Folate Routine 11/27/20 06:19 Glucose, Whole Blood Routine 11/27/20 06:38 Dextrose 50 % [D50] 25 gm IVPUSH ONCE ONE 11/27/20 07:19 Glucose, Whole Blood Routine 11/27/20 08:21 Add Laboratory Test Urgent 11/27/20 09:00 methylPREDNISolone Sod Succ/PF [SOLU-MedroL] 40 mg 0.9 % Sodium Chloride [Ns] 100 ml IV DAILY 11/27/20 09:04 Doxycycline Hyclate [Vibramycin] 100 mg IV .STK-MED ONE methylPREDNISolone Sod Succ/PF [SOLU-MedroL] 125 mg .ROUTE .STK-MED ONE 11/27/20 Breakfast Regular Diet 11/27/20 11:10 Glucose, Whole Blood Routine 11/27/20 12:23 Glucose, Whole Blood Routine 11/27/20 16:32 Glucose, Whole Blood Routine 11/27/20 18:07 Glucose, Whole Blood Routine 11/27/20 20:45 Glucose, Whole Blood Routine 11/27/20 21:53 Doxycycline Hyclate [Vibramycin] 100 mg IV .STK-MED ONE 11/27/20 23:47 Glucose, Whole Blood Routine 11/28/20 02:14 Glucose, Whole Blood Routine 11/28/20 02:17 Dextrose 50 % [D50] 25 gm IVPUSH ONCE ONE 11/28/20 04:17 Glucose, Whole Blood Routine 11/28/20 05:23 BMP [Basic Metabolic Panel Fasting] Routine Complete Blood Count Auto Diff Routine SLIDE REVIEW Routine 11/28/20 07:37 Glucose, Whole Blood Routine 11/28/20 09:36 Doxycycline Hyclate [Vibramycin] 100 mg IV .[facility]-MED ONE 11/28/20 11:37 Glucose, Whole Blood Routine 11/28/20 16:23 Glucose, Whole Blood Routine 11/28/20 21:46 Doxycycline Hyclate [Vibramycin] 100 mg IV .STK-MED ONE 11/28/20 21:48 Glucose, Whole Blood Routine 11/29/20 07:34 Glucose, Whole Blood Routine 11/29/20 08:49 Glucose, Whole Blood Routine 11/29/20 11:26 Glucose, Whole Blood Routine Laboratory Last Values WBC 5.8 X10*3/uL (4.8-10.8) 11/28/20 05:23 RBC 2.79 X10*6/uL (4.20-5.50) L 11/28/20 05:23 Hgb 8.7 g/dl (12.0-16.0) L 11/28/20 05:23 Hct 26.2 % (37-47) L 11/28/20 05:23 MCV 93.9 fL (80-98) 11/28/20 05:23 MCH 31.2 pg (27.0-33.0) 11/28/20 05:23 MCHC 33.2 g/dl (31.0-35.0) 11/28/20 05:23 RDW 17.5 % (11.0-16.0) H 11/28/20 05:23 Plt Count 39 X10*3/uL (160-400) L 11/28/20 05:23 MPV 10.8 fL (9.4-12.3) 11/28/20 05:23 Immature Gran % (Auto) 0.0 % (0.0-0.4) 11/28/20 05:23 Neut % (Auto) 30.5 % (45-73) L 11/28/20 05:23 Lymph % (Auto) 64.3 % (20-40) H 11/28/20 05:23 Casey % (Auto) 5.0 % (2-11) 11/28/20 05:23 Eos % (Auto) 0.2 % (0-4) 11/28/20 05:23 Baso % (Auto) 0.0 % (0-2) 11/28/20 05:23 Lymph # (Auto) 3.7 X10*3/uL (1.2-4.9) 11/28/20 05:23 Casey # (Auto) 0.3 X10*3/uL (0.1-1.2) 11/28/20 05:23 Eos # (Auto) 0.0 X10*3/uL (0.0-0.4) 11/28/20 05:23 Baso # (Auto) 0.0 X10*3/uL (0.0-0.2) 11/28/20 05:23 Abs Immat Gran (auto) 0.00 X10*3/uL (0.00-0.03) 11/28/20 05:23 Absolute Neuts (auto) 1.8 X10*3/uL (2.0-8.3) L 11/28/20 05:23 Absolute Nucleated RBC 0.000 X10*3/uL (0.0-0.012) 11/28/20 05:23 Nucleated RBC % (auto) 0.0 /100WBC (0.0-0.2) 11/28/20 05:23 Smear Tech's Comments VERIFIED 11/28/20 05:23 Smear Path Review SEE NOTE 11/23/20 10:36 Absolute Retic 0.054 X10*6/uL (0.026-0.095) 11/23/20 17:14 Percent Retic 2.2 % (0.5-1.8) H 11/23/20 17:14 Immature Retic Fraction 5.6 % (3.0-15.9) 11/23/20 17:14 Retic Hgb Equivalent 33.5 pg (30.0-35.0) 11/23/20 17:14 Haptoglobin <8 mg/dL (43-212) L 11/23/20 17:14 PT 12.7 SEC (10.8-13.0) 11/26/20 13:24 INR 1.1 (0.9-1.1) 11/26/20 13:24 APTT 31.8 SEC (24.1-38.0) 11/26/20 13:24 Fibrinogen 171 MG/DL (259-690) L 11/26/20 13:24 VBG pH 7.37 (7.32-7.43) 11/26/20 05:12 VBG pCO2 45 mmhg 11/26/20 05:12 VBG pO2 35 mmhg 11/26/20 05:12 VBG HCO3 26 mmol/L 11/26/20 05:12 VBG O2 Saturation 65.8 % 11/26/20 05:12 VBG Base Excess 0.0 mmol/L 11/26/20 05:12 Sodium 141 mmol/L (135-145) 11/28/20 05:23 Potassium 4.2 mmol/l (3.3-5.1) 11/28/20 05:23 Chloride 111 mmol/L (96-108) H 11/28/20 05:23 Carbon Dioxide 23 mmol/L (22-29) 11/28/20 05:23 Anion Gap 11 (12-20) L 11/28/20 05:23 BUN 28 mg/dL (9-16) H 11/28/20 05:23 Creatinine 0.62 mg/dL (0.5-1.4) 11/28/20 05:23 Estim Creat Clear Calc 56.3 11/28/20 05:23 Estimated GFR > 60 11/28/20 05:23 POC Glucose 114 mg/dL (60-115) 11/29/20 11:26 Random Glucose 65 mg/dL (60-115) D 11/27/20 06:00 Fasting Glucose 103 mg/dL (60-99) H 11/28/20 05:23 Lactic Acid 0.5 mmol/L (0.5-2.0) 11/23/20 10:36 Calcium 8.0 mg/dL (8.4-10.2) L 11/28/20 05:23 Phosphorus 2.4 mg/dL (2.7-4.5) L 11/26/20 05:10 Magnesium 1.7 mg/dL (1.6-2.6) 11/26/20 05:10 Iron 125 mcg/dL (30-160) 11/27/20 06:00 TIBC 232 mcg/dL (228-428) 11/27/20 06:00 % Saturation 54 % (15-50) H 11/27/20 06:00 Unsat Iron Binding 107 ug/dL 11/27/20 06:00 Ferritin 589 ng/mL (10-250) H 11/27/20 06:00 Total Bilirubin 0.7 mg/dL (0.0-1.0) 11/27/20 06:00 Direct Bilirubin 0.3 mg/dL (0.0-0.5) 11/24/20 09:19 AST 472 U/L (5-31) H 11/27/20 06:00 ALT 406 U/L (0-31) H 11/27/20 06:00 Alkaline Phosphatase 241 U/L (39-117) H 11/27/20 06:00 Lactate Dehydrogenase 260 U/L (122-220) H 11/26/20 19:30 Troponin I High Sens 7.9 ng/L (<3.5-17.0) 11/23/20 10:36 Total Protein 4.6 g/dL (6.5-8.0) L 11/27/20 06:00 Albumin 2.5 g/dL (3.5-5.0) L 11/27/20 06:00 Triglycerides 25 mg/dL 11/23/20 10:36 Lipase 1024 U/L (8-78) H 11/26/20 05:10 Vitamin B12 1694 pg/mL (200-900) H 11/27/20 06:00 Folate 15.5 ng/mL (> or = 4.0) 11/27/20 06:00 TSH 7.39 mIU/mL (0.32-4.0) H 11/23/20 10:36 Free T4 1.20 ng/dL (0.71-1.85) 11/23/20 10:36 Cortisol 24.2 mcg/dL H 11/24/20 05:15 Urine Color YELLOW 11/23/20 11:29 Urine Appearance HAZY 11/23/20 11:29 Urine pH 5.5 (5.0-8.0) 11/23/20 11:29 Ur Specific [place] 1.025 (1.005-1.025) 11/23/20 11:29 Urine Protein TRACE MG/DL (NEG-TRACE) 11/23/20 11:29 Urine Glucose (UA) NEG MG/DL (NEG) 11/23/20 11:29 Urine Ketones 5 MG/DL (NEG) 11/23/20 11:29 Urine Blood TRACE (NEG) 11/23/20 11:29 Urine Nitrite NEG (NEG) 11/23/20 11:29 Ur Leukocyte Esterase NEG (NEG) 11/23/20 11:29 Urine RBC 0 /HPF (0) 11/23/20 11:29 Urine WBC 0-2 /HPF (0-4) 11/23/20 11:29 Ur Squamous Epith Cells NONE /LPF 11/23/20 11:29 Urine Bacteria NONE /LPF 11/23/20 11:29 Epithelial Casts 0-2 /LPF 11/23/20 11:29 Hyaline Casts 5-9 /LPF 11/23/20 11:29 Granular Casts 1-4 /LPF 11/23/20 11:29 Urine Mucus 2+ /LPF 11/23/20 11:29 Vancomycin Trough 5.8 mcg/mL (10.0-20.0) L 11/26/20 03:08 Leuk/Lymph Viability SEE NOTE % 11/26/20 19:30 Leuk/Lym Source SEE NOTE 11/26/20 19:30 Leuk/Lym Sample Descrip Not Reportable 11/26/20 19:30 Leuk/Lym # of Markers SEE NOTE 11/26/20 19:30 Leuk/Lym Markers 23 11/26/20 19:30 L/L Additional Markers TNP 11/26/20 19:30 Leuk/Lym Gating Strategy SEE NOTE 11/26/20 19:30 Leuk/Lym Comment SEE NOTE 11/26/20 19:30 Leuk/Lym Interpretation SEE NOTE 11/26/20 19:30 A. phagocytophilum IgG <1:64 (<1:64) 11/24/20 09:19 A. phagocytophilum IgM <1:20 (<1:20) 11/24/20 09:19 A.phagocytophilum Intrp 11/24/20 09:19 A. phagocytophilum Cmmt See Below 11/24/20 09:19 Babesia Smear NEGATIVE (NEGATIVE) 11/24/20 09:19 Babesia microti IgG Ab <1:64 titer (<1:64) 11/24/20 09:19 Babesia microti IgM Ab <1:20 titer (<1:20) 11/24/20 09:19 Babesia Interpretation SEE NOTE 11/24/20 09:19 Coronavirus (PCR) NEGATIVE (Negative) 11/23/20 14:09 E. chaffeensis IgG Ab <1:64 (<1:64) 11/24/20 09:19 E. chaffeensis IgM Ab <1:20 (<1:20) 11/24/20 09:19 E. chaffeensis Interp 11/24/20 09:19 E. chaffeensis Comment See Below 11/24/20 09:19 Influenza Type A (PCR) NEGATIVE (Negative) 11/23/20 14:09 Influenza Type B (PCR) NEGATIVE (Negative) 11/23/20 14:09 Malaria Smear NEGATIVE (NEGATIVE) 11/24/20 09:19 RSV RNA Qual (PCR) NEGATIVE (Negative) 11/23/20 14:09 Blood Type A Negative 11/23/20 12:52 Antibody Screen NEGATIVE 11/23/20 12:52 Direct Antiglob Test TNP 11/26/20 13:24 BOLIVAR, Polyspecific NEGATIVE 11/26/20 13:24 Crossmatch See Detail 11/23/20 12:52 Discharge Plan Discharge Patient Disposition: er SNF Referrals: Doni Hollis on [facility] [Outside] Physician,Unknown [Primary Care Provider] - 1 Week (Please call and schedule a follow up appointment with your primary care doctor.) Discharge Medications: New prednisone 20 mg tablet 40 mg PO DAILY 45 Days Qty: 90 RF: 0 Continued multivitamin Tablet 1 tab PO DAILY RF: 0 levothyroxine 88 mcg Tablet 88 mcg PO DAILY@0630 RF: 0 cholecalciferol (vitamin D3) [Vitamin D3] 25 mcg (1,000 unit) Tablet 25 mcg PO DAILY RF: 0 sodium chloride 1 gram Tablet 1 g PO DAILY RF: 0 Discharge Orders: Discharge Order (Routine); Ordered 11/29/20 Ordered By: Justice Wiseman Activity on Discharge: As tolerated Visit Report Forms: Patient Portal Discharge page Care Plan Goals: recovery Health Concerns: cll and anorexia Plan of Treatment: predniosne taper, follow up with hematology
[2020-11-29 14:52] LABS: IgA 83 mg/dL (70-320); IgG 894 mg/dL (600-1540); IgM 22 mg/dL (50-300)
[2020-11-29 15:08] VITALS: BP 148/75; PULSE 65; RESP 19; TEMP 36.1; O2SAT 98
[2020-11-29 15:18] LABS: COVID-19 Test Negative (Negative); IDNOW Serial# 9DD0AD1C
[2020-11-29 16:10] LABS: Glucose, Whole Blood 86 mg/dL (60-115)
== END 2020-11-29 16:20 | disposition skilled nursing facility (03) | DRG 840 ==
LOC: HO.ED 12:42 → HO.ICU 16:04 → HO.IMC 11-26 12:57
PROVIDERS: Internal Medicine; Internal Medicine Pulmonary Disease; Physician Assistant; Registered Nurse Community Health; Admitting Provider Internal Medicine Cardiovascular Disease; Emergency Provider Emergency Medicine; Visit Provider Internal Medicine
DX: C91.10 Chronic lymphocytic leukemia of B-cell type not having achieved remission (principal); K85.90 Acute pancreatitis without necrosis or infection, unspecified; G93.41 Metabolic encephalopathy; D61.818 Other pancytopenia; E44.0 Moderate protein-calorie malnutrition; D80.1 Nonfamilial hypogammaglobulinemia; E87.1 Hypo-osmolality and hyponatremia; Z68.23 Body mass index [BMI] 23.0-23.9, adult; D73.1 Hypersplenism; E03.9 Hypothyroidism, unspecified; R68.0 Hypothermia, not associated with low environmental temperature; Z20.828 Contact with and (suspected) exposure to other viral communicable diseases; Z79.890 Hormone replacement therapy; Z79.899 Other long term (current) drug therapy
CPT/HCPCS: 0241U; 36415; 36430; 70450; 71045; 74176; 74230; 76705; 80048; 80053; 80076; 80202; 81001; 81003; 82533; 82607; 82728; 82746; 82784; 82803; 82947; 83010; 83540; 83605; 83615; 83690; 83735; 84100; 84439; 84443; 84478; 84484; 85025; 85045; 85384; 85610; 85730; 86334; 86666; 86753; 86850; 86880; 86900; 86901; 86920; 86923; 87040; 87207; 87635; 88184; 88185; 88189; 92526; 92610; 92611; 93005; 96365; 96366; 96375; 96376; 97116; 97162; 97530; 99285; 99291; 99292; J0692; J1170; J1572; J2185; J2405; J2543; J2920; J3370; P9016; P9035; P9037

== ENCOUNTER → 2024-07-20 14:33 | Outpatient (RCR) | payer MEDICARE, SELFPAY ==
--- NOTE | 2020-12-25 14:11 | HO.HEMONCTE1 ---
Hem/Onc Clinic Telehealth - Telehealth Location of Provider rendering services: Office Location of Patient: home Patient Identification confirmed using: Name, : Yes Telehealth Method: telephone Patient verbally consented to treatment: yes Patient verbally consented to billing insurance company: Yes Patient informed of any privacy concerns related to visit: Yes Medical Summary - Medical Summary Date of Service: 12/25/20 Chief complaint: Scheduled follow-up Medical Summary: Diagnosis: Chronic lymphocytic leukemia/Clay negative hemolytic anemia and thrombocytopenia Admitted for mental status changes in October 2020 to [facility]. Chronic severe anorexia nervosa with hypoalbuminemia and anasarca. Patient has been diagnosed with CLL at least 15 years ago. I called her oncologist's office in [facility], she was never treated as she had no symptoms. She was administered IVIG monthly for hypogammaglobulinemia. Her platelets in the last year or so have been running around 30,000 but hemoglobin has been 10-11 gram/dL. Anemia is acute and appears to be hemolytic anemia, Clay negative. LDH is not significantly elevated and total bilirubin is normal. Anemia could be related to underlying CLL. She has no hematinic deficiencies. Haptoglobin was less than 8. Blood flow cytometry was consistent with CLL. COVID-19 test was negative in hospital. Interval History Interval history: This was scheduled visit for patient, based on COVID-19 pandemic guidelines this is a tele visit based on COVID-19 pandemic guidelines. Patient is doing quite well now, she has recovered from COVID-19 infection which she acquired a few days after discharge from the hospital. She is being tapered off the prednisone and feels a lot better. Her hemoglobin had improved significantly the last time it was checked. She denies any chest pain, shortness of breath or cough. She is eating well and her leg swelling has gone down. She is hoping to get back to [facility] this Thursday. Review of Systems - Constitutional Reports no additional constitutional complaints - Cardiovascular Reports no additional cardiovascular complaints - Respiratory Reports no additional respiratory complaints - Gastrointestinal Reports no additional gastrointestinal complaints Oncology Screenings - ECOG Performance Status ECOG Performance Status: 1 Home Medications and Allergies Home Medications Medication Instructions Recorded Confirmed Type cholecalciferol (vitamin D3) 25 mcg PO DAILY 11/27/20 12/25/20 History [Vitamin D3] levothyroxine 88 mcg PO DAILY@0630 11/27/20 12/25/20 History multivitamin 1 tab PO DAILY 11/27/20 12/25/20 History sodium chloride 1 g PO DAILY 11/27/20 12/25/20 History Allergies Allergy/AdvReac Type Severity Reaction Status Date / Time No Known Allergies Allergy Verified 11/23/20 10:26 Exam Vital signs: Vital Signs Temp 97.4 F 12/25/20 14:09 Pulse 70 12/25/20 14:09 Resp 12 12/25/20 14:09 BP 125/76 12/25/20 14:09 Pulse Ox 98 12/25/20 14:09 Intake & Output 12/24/20 12/25/20 12/25/20 18:59 06:59 18:59 Other: Weight 71.2 kg Weight 71.2 kg Body Mass Index 31.6 - Routine HEENT Exam Head: Present: normal inspection Eye: Present: EOMI - Routine Neck Exam Absent: lymphadenopathy - Routine Respiratory Exam Present: CTAB - Routine Cardiovascular Exam Cardiovascular: Present: S1, S2 Progress Note: A/P (1) Chronic lymphocytic leukemia Status: Chronic Assessment and plan: 1. This is a 75-year-old woman with chronic lymphocytic leukemia diagnosed in the early . She was monitored, did not require any treatment. She has also chronic anorexia nervosa causing significant health issues. She was admitted to [facility] in October 2020 with hypoglycemia and mental status changes, severe hypoalbuminemia causing anasarca related to her eating habits. She also had worsening thrombocytopenia and hemolytic anemia. Haptoglobin was below 8, Clay negative. Anemia and thrombocytopenia could be related to CLL. This was discussed with patient, she preferred to go back to [facility] where she lives and have her own oncologist start her treatment eventually. Following discharge from [facility], she developed COVID-19 infection and was successfully treated. I am waiting to see her CBC that was done in the detention. She is clinically improved and is eating better. She is being tapered off prednisone. She will call if she is in this area and needs any further medical help in regards to her CLL. - Time Spent With Patient Total time spent is greater than 50% in coordination of care (as documented) at patient's floor/unit and/or counseling patient: 15 - 24 minutes
== END | disposition home or self-care (01) ==
LOC: HO.ONC 12-25 14:00
PROVIDERS: Visit Provider Internal Medicine
DX: C91.10 Chronic lymphocytic leukemia of B-cell type not having achieved remission (principal); D58.9 Hereditary hemolytic anemia, unspecified; D69.6 Thrombocytopenia, unspecified; F50.00 Anorexia nervosa, unspecified; Z68.31 Body mass index [BMI] 31.0-31.9, adult; Z86.16 Personal history of COVID-19
CPT/HCPCS: 99213; Q3014